=== PATIENT | female | born 1950 | race Caucasian/White ===

== ENCOUNTER 2017-03-28 22:51 | Emergency (ER) | payer MEDICARE, MEDICAID ==
[2017-03-29 00:21] LABS: Troponin I Less than 0.010 ng/mL (< 0.028)
== END 2017-03-29 03:15 | disposition home or self-care (01) ==
LOC: ERS 22:51
DX: F41.9 Anxiety disorder, unspecified (principal); T42.6X5A Adverse effect of other antiepileptic and sedative-hypnotic drugs, initial encounter; E03.9 Hypothyroidism, unspecified; F31.9 Bipolar disorder, unspecified; B19.10 Unspecified viral hepatitis B without hepatic coma; F43.10 Post-traumatic stress disorder, unspecified; F17.210 Nicotine dependence, cigarettes, uncomplicated; Z79.899 Other long term (current) drug therapy
CPT/HCPCS: 36415; 80164; 93005; 94760; 96360

== ENCOUNTER 2020-04-12 20:37 | Inpatient (IN) | payer MEDICARE, MEDICAID ==
[2020-04-12] MEDS ORDERED: HYDROcodone/Acetaminophen 5/325 mg Tablet PO PRN (22:10)
[2020-04-12] MEDS ORDERED: Acetaminophen 650 MG Suppository PR PRN (22:10)
[2020-04-12] MEDS ORDERED: Ondansetron ODT 4 MG TAB PO PRN (22:10)
[2020-04-12] MEDS ORDERED: Ondansetron PF 4 MG/2 ML Vial IVP PRN (22:10)
--- NOTE | 2020-04-12 22:22 | PDOC.HHP ---
Hospitalist HPI - History of Present Illness hypoxia History of Present Illness: Case of an 69y/o female patient with a pmhx of hld, hypothyroidism, hep b abd chronic back pain who was transferred from the [facility] due to hypoxia secondary to COVID-19 pneumonia. apparently patient was recently diagnosed with covid 19 about a week ago and was found hypoactive and with a RA saturation of 87% having difficulty breathing for which she was brought to hospital for evaluation. there patient was also diagnose with rhabdomyolysis and elevated troponin for which she was transfered to this institution for further evaluation and management. patient is a poor historian, correction called for patients hxs Hospitalist ROS - Review of Systems All other systems reviewed; all pertinent +/- noted in HPI/Subj Hospitalist History - Past Surgical History Past Surgical History: reports: Cholecystectomy, Hysterectomy - Family History Family History: reports: no pertinent history - Social History Smoking Status: Current every day smoker Drugs: reports: cocaine, marijuana - Exam General Appearance: NAD, awake alert Eye: PERRL, anicteric sclera ENT: normocephalic atraumatic, no oropharyngeal lesions Neck: supple, symmetric, no JVD Heart: RRR, no murmur, no gallops Respiratory: CTAB, no wheezes, no rales Gastrointestinal: soft, non-tender, non-distended Extremities: no cyanosis, no clubbing, no edema Skin: normal turgor, no lesions, no rashes Neurological: cranial nerve grossly intact, normal sensation to touch, no weakness Musculoskeletal: normal tone, normal strength Psychiatric: normal affect, normal behavior, A&O x 3 Hospitalist H&P A/P - Problem (1) Pneumonia due to COVID-19 virus Code(s): U07.1 - COVID-19; J12.89 - OTHER VIRAL PNEUMONIA Status: Acute (2) Acute respiratory failure Code(s): J96.00 - ACUTE RESPIRATORY FAILURE, UNSP W HYPOXIA OR HYPERCAPNIA Status: Acute (3) UTI (urinary tract infection) Status: Acute (4) BK (acute kidney injury) Code(s): N17.9 - ACUTE KIDNEY FAILURE, UNSPECIFIED Status: Acute (5) Rhabdomyolysis Code(s): M62.82 - RHABDOMYOLYSIS Status: Acute (6) Elevated troponin Code(s): R77.8 - OTHER SPECIFIED ABNORMALITIES OF PLASMA PROTEINS Status: Acute - Plan Plan: 69y/o female with the stated pmhx who present with covid 19 pneumonia, resp failure bk and rhabdomyelisis covid 19 - recentely tested positive - cxr pneumonia on LLL - will start rocephin + azithromycin prophylactically - dexamethazone 6mg ivd - f/u inflammation markers - dvt prophylaxis - vit c vit d + zinc acute resp failure hypoxia - likely secondary to above - 02 supplementation wean as tolerated uti - u/a consistent with uti - f/u blood + urine cultures - on rocephin bk - elevated creatinine compared to previous exams - will start ivfs ns - f/u renal function and u/o rhabdomyelisis - cpk [id number] - ivfs - f/u cpk - monitor electrolites - f/u renal function elevated troponin - likely stemi typ2 deman ischemia in the setting of hypoxia renal failure and infection - will trend troponins
[2020-04-12 23:17] VITALS: BMI 30.6
[2020-04-12] MEDS: Sodium Chloride 0.9% 1,000 ML IV SCH (23:56)
[2020-04-13 02:11] LABS: Troponin I 0.027 ng/mL (< 0.028)
[2020-04-13 05:45] LABS: #Lymphocytes 0.9 thou/uL (1.20-3.40); #Monocytes 0.5 thou/uL (0.11-0.59); #Neutrophils 6.4 thou/uL (1.40-6.50); %Basophils 0.3 % (0.0-1.0); %Eosinophils 0.2 % (0.0-10.0); %Lymphocytes 11.3 % (21.0-51.0); %Monocytes 6.6 % (0.0-10.0); %Neutrophils 81.7 % (42.0-75.0); Hemoglobin 11.9 g/dL (12.0-16.0); Mean Corpuscular HGB CONC 33.1 g/dL (32.0-36.0); Mean Corpuscular Hemoglobin 34.2 pg (27.0-31.0); Mean Platelet Volume 7.2 fL (7.4-10.4); Platelet Count 162 thou/uL (130-400); RBC Distribution Width 12.2 % (11.5-14.5); Red Blood Cell (RBC) Count 3.47 mill/uL (4.20-5.40); White Blood Cell (WBC) Count 7.8 thou/uL (4.8-10.8)
[2020-04-13 06:08] LABS: ALT (SGPT) 48 U/L (8-55); AST (SGOT) 120 U/L (5-34); Albumin 2.5 g/dL (3.4-4.8); Alkaline Phosphatase 31 U/L (40-110); Anion Gap 14 mmol/L (10-20); BUN (Urea Nitrogen) 31 mg/dL (9.8-20.1); Bilirubin, Total 0.3 mg/dL (0.2-1.2); CK (CPK) 2535 U/L (29-168); Calc. Creatinine Clearance 74 mL/min (70-130); Calcium 7.4 mg/dL (7.8-10.44); Carbon Dioxide 20 mmol/L (23-31); Chloride 105 mmol/L (98-107); Globulin 3.2 g/dL (2.4-3.5); Glucose 92 mg/dL (80-115); Potassium 4.3 mmol/L (3.5-5.1); Protein, Total 5.7 g/dL (6.0-8.3); Sodium 135 mmol/L (136-145)
[2020-04-13 06:09] LABS: Troponin I 0.029 ng/mL (< 0.028)
[2020-04-13] MEDS: Ascorbic Acid 500 mg Chewable Tablet PO SCH (09:30)
[2020-04-13] MEDS: Enoxaparin Sodium 30 MG/0.3 ML SYRINGE SC SCH (09:30)
[2020-04-13] MEDS: Zinc Sulfate 220 MG CAP PO SCH (09:30)
[2020-04-13] MEDS: Cholecalciferol (Vitamin D3) 400 UNITS TAB PO SCH (09:30)
[2020-04-13] MEDS: Dexamethasone 6 MG in Sodium Chloride 0.9% 50 ML IVPB SCH (09:31)
[2020-04-13] MEDS: Sodium Chloride 0.9% 1,000 ML IV SCH ×3 (10:30→22:05)
[2020-04-13] MEDS ORDERED: Senokot S 8.6-50 MG TAB PO SCH (11:00)
[2020-04-13] MEDS: ALPRAZolam 1 MG TAB PO SCH ×2 (13:41→20:22)
[2020-04-13] MEDS ORDERED: REMDESIVIR (EUA) 200 MG in Sodium Chloride 0.9% 250 ML 210 ML IV SCH (17:00)
[2020-04-13] MEDS: Milk Of Magnesia 30 ML UDCUP PO PRN (17:17)
--- NOTE | 2020-04-13 17:37 | PDOC.HOSPP ---
- Subjective Encounter Date: 04/13/20 Encounter Time: 11:30 Subjective: Patient seen for follow-up regarding COVID-19 pneumonia. She denies chest pain. - Objective Vital Signs & Weight: Vital Signs (12 hours) Temp Pulse Resp BP Pulse Ox 04/13/20 13:00 97.4 F L 65 22 H 117/71 95 04/13/20 09:30 97.6 F 64 22 H 120/60 94 L 04/13/20 08:00 94 L Weight Weight 167 lb 8 oz I&O: 04/12/20 04/13/20 04/14/20 06:59 06:59 06:59 Intake Total 300 Output Total 450 Balance -150 Result Diagrams: 04/13/20 05:09 04/13/20 05:09 Additional Labs: I reviewed patient's labs and MAR EKG Reviewed by me: Yes (Normal sinus rhythm on telemetry) Hospitalist ROS - Review of Systems Respiratory: reports: cough, dry. denies: shortness of breath, hemoptysis, SOB with excertion, pleuritic pain, sputum, wheezing Cardiovascular: denies: chest pain, palpitations, orthopnea, paroxysmal noc. dyspnea, edema, light headedness - Medication Medications: Active Medications Generic Name Dose Route Start Last Admin Trade Name Freq PRN Reason Stop Dose Admin Alprazolam 1 mg 04/13/20 15:00 04/13/20 13:41 Alprazolam 1 Mg Tab PO 1 mg TID PALMA Administration Ascorbic Acid 1,000 mg 04/13/20 09:00 04/13/20 09:30 Ascorbic Acid 500 Mg Chewable Tablet PO 1,000 mg DAILY PALMA Administration Cholecalciferol 400 units 04/13/20 09:00 04/13/20 09:30 Cholecalciferol (Vitamin D3) 400 Units Tab PO 400 units DAILY PALMA Administration Enoxaparin Sodium 30 mg 04/13/20 09:00 04/13/20 09:30 Enoxaparin Sodium 30 Mg/0.3 Ml Syringe SC 30 mg 0900 PALMA Administration Sodium Chloride 1,000 mls @ 100 mls/hr 04/12/20 22:15 04/12/20 23:56 Normal Saline 0.9% IV 1,000 mls .Q10H PALMA Administration Dexamethasone 6 mg/ Sodium 51.5 mls @ 101.756 mls/hr 04/13/20 09:00 04/13/20 09:31 Chloride IVPB 51.5 mls DAILY PALMA Administration Remdesivir 200 mg/ Sodium 250 mls @ 250 mls/hr 04/13/20 17:00 04/13/20 17:17 Chloride IV 04/13/20 17:59 250 mls 1700 PALMA Administration Magnesium Hydroxide 30 ml 04/13/20 10:55 04/13/20 17:17 Milk Of Magnesia 30 Ml Udcup PO 30 ml DAILYPRN PRN Administration Constipation Zinc Sulfate 220 mg 04/13/20 09:00 04/13/20 09:30 Zinc Sulfate 220 Mg Cap PO 220 mg DAILY PALMA Administration - Exam General - other findings: Obese Eye: anicteric sclera ENT: no oropharyngeal lesions, moist mucosa Neck: supple Heart: RRR Respiratory: rales, rhonchi Gastrointestinal: soft, non-tender Skin: no rashes Psychiatric: normal affect, normal behavior Hosp A/P - Plan - Problem (1) Pneumonia due to COVID-19 virus Code(s): U07.1 - COVID-19; J12.89 - OTHER VIRAL PNEUMONIA Status: Acute (2) Acute hypoxic respiratory failure Status: Acute (3) UTI (urinary tract infection) Status: Ruled out (4) BK (acute kidney injury) Code(s): N17.9 - ACUTE KIDNEY FAILURE, UNSPECIFIED Status: Resolved (5) Rhabdomyolysis Code(s): M62.82 - RHABDOMYOLYSIS Status: Acute (6) Elevated troponin Code(s): R77.8 - OTHER SPECIFIED ABNORMALITIES OF PLASMA PROTEINS Status: Acute - Plan Continue dexamethasone, patient also being started on remdesivir. Continue ceftriaxone and azithromycin. Continue inflammatory markers tracking. Follow-up blood culture results. Patient denies any chest pain, elevated troponin IX likely secondary to demand ischemia. Continue IV fluids, recheck CK level.
[2020-04-13] MEDS: Atorvastatin Calcium 20 MG TAB PO SCH (20:22)
[2020-04-13] MEDS: Divalproex Sodium DR 500 MG TAB PO SCH (20:22)
[2020-04-13] MEDS: Senokot S 8.6-50 MG TAB PO SCH (20:22)
[2020-04-13] MEDS: Guaifenesin DM 100-10/5 ML UDCUP PO PRN (20:24)
[2020-04-14] MEDS: Acetaminophen 325 MG TAB PO PRN ×2 (00:06→10:47)
[2020-04-14] MEDS ORDERED: Albuterol Sulfate 2.5 mg/3 ml Neb NEB PRN (00:32)
[2020-04-14] MEDS: Albuterol 200 PUFF (6.7GM INHALER) INH PRN ×2 (01:09→13:00)
[2020-04-14] MEDS: Guaifenesin DM 100-10/5 ML UDCUP PO PRN (04:40)
[2020-04-14 05:48] LABS: ALT (SGPT) 57 U/L (8-55); AST (SGOT) 143 U/L (5-34); Alkaline Phosphatase 46 U/L (40-110); Bilirubin, Direct 0.2 mg/dL (0.1-0.3); Bilirubin, Total 0.5 mg/dL (0.2-1.2); Protein, Total 6.5 g/dL (6.0-8.3)
[2020-04-14] MEDS: Sodium Chloride 0.9% 1,000 ML IV SCH ×3 (06:05→16:26)
[2020-04-14] MEDS: Levothyroxine Sodium 75 MCG TAB PO SCH (06:05)
[2020-04-14 06:20] LABS: ALT (SGPT) 62 U/L (8-55); AST (SGOT) 149 U/L (5-34); Alkaline Phosphatase 40 U/L (40-110); Anion Gap 18 mmol/L (10-20); BUN (Urea Nitrogen) 25 mg/dL (9.8-20.1); Bilirubin, Total 0.5 mg/dL (0.2-1.2); CK (CPK) 2036 U/L (29-168); CRP (Inflammatory) 12.83 mg/dL (= or < 0.5); Calc. Creatinine Clearance 82 mL/min (70-130); Calcium 7.9 mg/dL (7.8-10.44); Carbon Dioxide 20 mmol/L (23-31); Chloride 103 mmol/L (98-107); Globulin 3.4 g/dL (2.4-3.5); Glucose 87 mg/dL (80-115); Protein, Total 6.4 g/dL (6.0-8.3); Sodium 136 mmol/L (136-145)
--- NOTE | 2020-04-14 07:45 | RAD ---
XR Chest 1 View Portable History: Tachypnea. Shortness of breath Comparison: Radiograph 2 days prior Findings: Perihilar and peripheral airspace opacities are similar. Small effusions. No pneumothorax. Cardiac silhouette and mediastinal contours are unchanged. No acute osseous abnormality. Impression: Similar examination of the chest with concern for multifocal pneumonia.
[2020-04-14] MEDS: Zinc Sulfate 220 MG CAP PO SCH (07:55)
[2020-04-14] MEDS: Fish Oil 1,000 MG CAP PO SCH (07:55)
[2020-04-14] MEDS: FLUoxetine HCl 20 MG CAP PO SCH (07:55)
[2020-04-14] MEDS: Aripiprazole 10 MG TAB PO SCH ×2 (07:55→07:56)
[2020-04-14] MEDS: Senokot S 8.6-50 MG TAB PO SCH (07:56)
[2020-04-14] MEDS: Cholecalciferol (Vitamin D3) 400 UNITS TAB PO SCH (07:56)
[2020-04-14] MEDS: Enoxaparin Sodium 30 MG/0.3 ML SYRINGE SC SCH (07:57)
[2020-04-14] MEDS: ALPRAZolam 1 MG TAB PO SCH ×2 (10:47→16:28)
[2020-04-14] MEDS: Dexamethasone 6 MG in Sodium Chloride 0.9% 50 ML IVPB SCH (10:50)
[2020-04-14] MEDS: Ascorbic Acid 500 mg Chewable Tablet PO SCH (10:50)
[2020-04-14 11:57] LABS: Hemoglobin 12.6 g/dL (12.0-16.0); Mean Corpuscular HGB CONC 33.7 g/dL (32.0-36.0); Mean Corpuscular Hemoglobin 34.7 pg (27.0-31.0); Mean Platelet Volume 6.7 fL (7.4-10.4); Platelet Count 185 thou/uL (130-400); RBC Distribution Width 12.2 % (11.5-14.5); Red Blood Cell (RBC) Count 3.64 mill/uL (4.20-5.40); White Blood Cell (WBC) Count 9.5 thou/uL (4.8-10.8)
[2020-04-14 12:13] LABS: Band 58 % (5-11); Lymphocytes 6 % (21-51); MDiff Complete? YES; Metamyelocyte 1 % (0-0); Monocytes 5 % (0-10); Myelocyte 1 % (0-0); Neutrophil 25 % (42-75); Platelet Morphology Comment Appears Adequate; Polychromasia SLIGHT = 2-3 cells (100X) (0-2/hpf); Reactive Lymphocytes 4 % (0-10); Reflex for Review?? YES; Vacuoles SLIGHT
[2020-04-14] MEDS: REMDESIVIR (EUA) 100 MG in Sodium Chloride 0.9% 250 ML 230 ML IV SCH (16:27)
--- NOTE | 2020-04-14 16:51 | PDOC.HOSPP ---
- Subjective Encounter Date: 04/14/20 Encounter Time: 09:00 Subjective: Patient seen for follow-up regarding COVID-19 pneumonia. She is now on high flow oxygen. - Objective Vital Signs & Weight: Vital Signs (12 hours) Temp Pulse Resp BP Pulse Ox 04/14/20 15:00 99.9 F H 04/14/20 12:24 102.3 F H 04/14/20 11:45 102.1 F H 84 36 H 125/60 98 04/14/20 10:47 100.9 F H 04/14/20 08:00 100.9 F H 83 26 H 143/74 H 95 04/14/20 05:04 95 Weight Weight 167 lb 8 oz I&O: 04/13/20 04/14/20 04/15/20 06:59 06:59 06:59 Intake Total 3293 200 Output Total 950 Balance 2343 200 Result Diagrams: 04/14/20 11:19 04/14/20 05:39 Additional Labs: Labs and MAR reviewed by me EKG Reviewed by me: Yes (Telemetry shows normal sinus rhythm) Hospitalist ROS - Review of Systems Respiratory: reports: cough, dry, SOB with excertion. denies: shortness of breath, hemoptysis, pleuritic pain, sputum, wheezing Cardiovascular: denies: chest pain, palpitations, orthopnea, paroxysmal noc. dyspnea, edema, light headedness - Medication Medications: Active Medications Generic Name Dose Route Start Last Admin Trade Name Freq PRN Reason Stop Dose Admin Acetaminophen 650 mg 04/12/20 22:10 04/14/20 10:47 Acetaminophen 325 Mg Tab PO 650 mg Q4H PRN Administration Headache/Fever/Mild Pain (1-3) Albuterol Sulfate 2 puff 04/14/20 00:36 04/14/20 01:09 Albuterol 200 Puff (6.7gm Inhaler) INH 2 puff [id number] PRN Administration Wheezing Alprazolam 1 mg 04/13/20 15:00 04/14/20 16:28 Alprazolam 1 Mg Tab PO Not Given TID PALMA Aripiprazole 10 mg 04/14/20 09:00 04/14/20 07:56 Aripiprazole 10 Mg Tab PO 10 mg DAILY PALMA Administration Ascorbic Acid 1,000 mg 04/13/20 09:00 04/14/20 10:50 Ascorbic Acid 500 Mg Chewable Tablet PO 1,000 mg DAILY PALMA Administration Atorvastatin Calcium 20 mg 04/13/20 21:00 04/13/20 20:22 Atorvastatin Calcium 20 Mg Tab PO 20 mg HS PALMA Administration Cholecalciferol 400 units 04/13/20 09:00 04/14/20 07:56 Cholecalciferol (Vitamin D3) 400 Units Tab PO 400 units DAILY PALMA Administration Divalproex Sodium 500 mg 04/13/20 21:00 04/13/20 20:[address] 500 Mg Tab PO 500 mg HS PALMA Administration Enoxaparin Sodium 30 mg 04/13/20 09:00 04/14/20 07:57 Enoxaparin Sodium 30 Mg/0.3 Ml Syringe SC 30 mg 0900 PALMA Administration Fish Oil 1,000 mg 04/14/20 09:00 04/14/20 07:55 Fish Oil 1,000 Mg Cap PO 1,000 mg DAILY PALMA Administration Fluoxetine HCl 60 mg 04/14/20 09:00 04/14/20 07:55 Fluoxetine Hcl 20 Mg Cap PO 60 mg DAILY PALMA Administration Guaifenesin/Dextromethorphan 15 ml 04/12/20 22:10 04/14/20 04:40 Guaifenesin Dm 100-10/5 Ml Udcup PO 15 ml Q4H PRN Administration Cough Sodium Chloride 1,000 mls @ 100 mls/hr 04/12/20 22:15 04/14/20 16:26 Normal Saline 0.9% IV 1,000 mls .Q10H PALMA Administration Dexamethasone 6 mg/ Sodium 51.5 mls @ 101.756 mls/hr 04/13/20 09:00 04/14/20 10:50 Chloride IVPB 51.5 mls DAILY PALMA Administration Remdesivir 100 mg/ Sodium 250 mls @ 250 mls/hr 04/14/20 17:00 04/14/20 16:27 Chloride IV 04/17/20 17:59 250 mls 1700 PALMA Administration Levothyroxine Sodium 75 mcg 04/14/20 06:00 04/14/20 06:05 Levothyroxine Sodium 75 Mcg Tab PO 75 mcg 0600 PALMA Administration Senna/Docusate Sodium 1 tab 04/13/20 21:00 04/14/20 07:56 Senokot S 8.6-50 Mg Tab PO 1 tab BID PALMA Administration Zinc Sulfate 220 mg 04/13/20 09:00 04/14/20 07:55 Zinc Sulfate 220 Mg Cap PO 220 mg DAILY PALMA Administration - Exam General - other findings: Obese Eye: anicteric sclera ENT: moist mucosa Neck: supple Heart: RRR Respiratory: rhonchi Gastrointestinal: soft Skin: no rashes Psychiatric: normal affect, normal behavior Hosp A/P - Plan 69-year-old lady, admitted on April 12, 2020 for Covid pneumonia. She is being treated with dexamethasone, remdesivir, vitamin C, vitamin D and zinc. She was transitioned to high flow oxygen from nasal cannula. - Problem (1) Pneumonia due to COVID-19 virus Code(s): U07.1 - COVID-19; J12.89 - OTHER VIRAL PNEUMONIA Status: Acute (2) Acute hypoxic respiratory failure Status: Acute (3) UTI (urinary tract infection) Status: Ruled out (4) BK (acute kidney injury) Code(s): N17.9 - ACUTE KIDNEY FAILURE, UNSPECIFIED Status: Resolved (5) Rhabdomyolysis Code(s): M62.82 - RHABDOMYOLYSIS Status: Acute (6) Elevated troponin Code(s): R77.8 - OTHER SPECIFIED ABNORMALITIES OF PLASMA PROTEINS Status: Acute - Plan Continue dexamethasone and remdesivir. Patient is on ceftriaxone and azithromycin. Continue inflammatory markers tracking. BK has resolved, rhabdomyolysis improving. Continue IV fluids.
[2020-04-14] MEDS: Nicotine 21 MG PATCH TD SCH (19:26)
[2020-04-14] MEDS: Atorvastatin Calcium 20 MG TAB PO SCH (19:39)
[2020-04-14] MEDS: Divalproex Sodium DR 500 MG TAB PO SCH (19:39)
[2020-04-15] MEDS: ALPRAZolam 1 MG TAB PO SCH ×4 (02:32→21:02)
[2020-04-15] MEDS: Senokot S 8.6-50 MG TAB PO SCH ×3 (02:33→21:02)
[2020-04-15] MEDS: Sodium Chloride 0.9% 1,000 ML IV SCH ×3 (05:01→21:04)
[2020-04-15] MEDS: Levothyroxine Sodium 75 MCG TAB PO SCH (05:01)
[2020-04-15 06:35] LABS: Hemoglobin 11.6 g/dL (12.0-16.0); Mean Corpuscular HGB CONC 32.2 g/dL (32.0-36.0); Mean Corpuscular Hemoglobin 33.1 pg (27.0-31.0); Platelet Count 199 thou/uL (130-400); RBC Distribution Width 12.4 % (11.5-14.5); White Blood Cell (WBC) Count 8.2 thou/uL (4.8-10.8)
[2020-04-15 06:48] LABS: ALT (SGPT) 40 U/L (8-55); ALT (SGPT) 42 U/L (8-55); AST (SGOT) 93 U/L (5-34); AST (SGOT) 98 U/L (5-34); Albumin 2.3 g/dL (3.4-4.8); Alkaline Phosphatase 37 U/L (40-110); Alkaline Phosphatase 39 U/L (40-110); Anion Gap 15 mmol/L (10-20); BUN (Urea Nitrogen) 19 mg/dL (9.8-20.1); Bilirubin, Direct 0.3 mg/dL (0.1-0.3); Bilirubin, Total 0.4 mg/dL (0.2-1.2); CK (CPK) 666 U/L (29-168); Calc. Creatinine Clearance 95 mL/min (70-130); Calcium 7.6 mg/dL (7.8-10.44); Carbon Dioxide 20 mmol/L (23-31); Chloride 104 mmol/L (98-107); Globulin 2.8 g/dL (2.4-3.5); Glucose 80 mg/dL (80-115); Potassium 3.7 mmol/L (3.5-5.1); Protein, Total 5.1 g/dL (6.0-8.3); Sodium 135 mmol/L (136-145)
[2020-04-15] MEDS: Ascorbic Acid 500 mg Chewable Tablet PO SCH (07:41)
[2020-04-15] MEDS: Albuterol 200 PUFF (6.7GM INHALER) INH PRN (07:41)
[2020-04-15] MEDS: Fish Oil 1,000 MG CAP PO SCH (07:42)
[2020-04-15] MEDS: Enoxaparin Sodium 30 MG/0.3 ML SYRINGE SC SCH (07:42)
[2020-04-15] MEDS: FLUoxetine HCl 20 MG CAP PO SCH (07:42)
[2020-04-15] MEDS: Cholecalciferol (Vitamin D3) 400 UNITS TAB PO SCH (07:42)
[2020-04-15 07:43] LABS: Band 27 % (5-11); Lymphocytes 11 % (21-51); MDiff Complete? YES; Metamyelocyte 3 % (0-0); Monocytes 11 % (0-10); Neutrophil 48 % (42-75); Nucleated RBC 2 % (0); Platelet Morphology Comment Appears Adequate; Polychromasia SLIGHT = 2-3 cells (100X) (0-2/hpf)
[2020-04-15] MEDS: Zinc Sulfate 220 MG CAP PO SCH (07:43)
[2020-04-15] MEDS: Aripiprazole 10 MG TAB PO SCH (07:43)
[2020-04-15] MEDS: Dexamethasone 6 MG in Sodium Chloride 0.9% 50 ML IVPB SCH (08:03)
[2020-04-15] MEDS: Guaifenesin DM 100-10/5 ML UDCUP PO PRN (11:30)
[2020-04-15] MEDS: Nicotine 21 MG PATCH TD SCH (15:55)
--- NOTE | 2020-04-15 16:36 | PDOC.HOSPP ---
- Subjective Encounter Date: 04/15/20 Encounter Time: 12:30 Subjective: Patient up in bed appears weak. - Objective Vital Signs & Weight: Vital Signs (12 hours) Temp Pulse Pulse Pulse Resp BP BP 04/15/20 16:00 98.8 F 66 20 04/15/20 11:45 68 100 109/62 132/96 H 04/15/20 11:40 99.5 F 67 20 04/15/20 07:45 99.1 F 68 20 04/15/20 05:32 BP Pulse Ox Pulse Ox Pulse Ox 04/15/20 16:00 106/56 L 98 04/15/20 11:45 97 90 L 04/15/20 11:40 112/63 04/15/20 07:45 123/65 98 04/15/20 05:32 96 Weight Weight 167 lb 8 oz I&O: 04/14/20 04/15/20 04/16/20 06:59 06:59 06:59 Intake Total 3293 300 150 Output Total 950 500 500 Balance 2343 -200 -350 Result Diagrams: 04/15/20 05:56 04/15/20 05:55 Hospitalist ROS - Review of Systems Respiratory: reports: shortness of breath Cardiovascular: denies: chest pain, palpitations, orthopnea, paroxysmal noc. d yspnea, edema, light headedness, other Gastrointestinal: denies: nausea, vomiting, abdominal pain, diarrhea, constipation, melena, hematochezia, other - Medication Medications: Active Medications Generic Name Dose Route Start Last Admin Trade Name Freq PRN Reason Stop Dose Admin Acetaminophen 650 mg 04/12/20 22:10 04/14/20 10:47 Acetaminophen 325 Mg Tab PO 650 mg Q4H PRN Administration Headache/Fever/Mild Pain (1-3) Albuterol Sulfate 2 puff 04/14/20 00:36 04/15/20 07:41 Albuterol 200 Puff (6.7gm Inhaler) INH 2 puff [id number] PRN Administration Wheezing Alprazolam 1 mg 04/13/20 15:00 04/15/20 15:54 Alprazolam 1 Mg Tab PO 1 mg TID PALMA Administration Aripiprazole 10 mg 04/14/20 09:00 04/15/20 07:43 Aripiprazole 10 Mg Tab PO 10 mg DAILY PALMA Administration Ascorbic Acid 1,000 mg 04/13/20 09:00 04/15/20 07:41 Ascorbic Acid 500 Mg Chewable Tablet PO 1,000 mg DAILY PALMA Administration Atorvastatin Calcium 20 mg 04/13/20 21:00 04/14/20 19:39 Atorvastatin Calcium 20 Mg Tab PO 20 mg HS PALMA Administration Cholecalciferol 400 units 04/13/20 09:00 04/15/20 07:42 Cholecalciferol (Vitamin D3) 400 Units Tab PO 400 units DAILY PALMA Administration Divalproex Sodium 500 mg 04/13/20 21:00 04/14/20 19:[address] 500 Mg Tab PO 500 mg HS PALMA Administration Enoxaparin Sodium 30 mg 04/13/20 09:00 04/15/20 07:42 Enoxaparin Sodium 30 Mg/0.3 Ml Syringe SC 30 mg 0900 PALMA Administration Fish Oil 1,000 mg 04/14/20 09:00 04/15/20 07:42 Fish Oil 1,000 Mg Cap PO 1,000 mg DAILY PALMA Administration Fluoxetine HCl 60 mg 04/14/20 09:00 04/15/20 07:42 Fluoxetine Hcl 20 Mg Cap PO 60 mg DAILY PALMA Administration Guaifenesin/Dextromethorphan 15 ml 04/12/20 22:10 04/15/20 11:30 Guaifenesin Dm 100-10/5 Ml Udcup PO 15 ml Q4H PRN Administration Cough Sodium Chloride 1,000 mls @ 100 mls/hr 04/12/20 22:15 04/15/20 11:25 Normal Saline 0.9% IV 1,000 mls .Q10H PALMA Administration Dexamethasone 6 mg/ Sodium 51.5 mls @ 101.756 mls/hr 04/13/20 09:00 04/15/20 08:03 Chloride IVPB 51.5 mls DAILY PALMA Administration Remdesivir 100 mg/ Sodium 250 mls @ 250 mls/hr 04/14/20 17:00 04/14/20 16:27 Chloride IV 04/17/20 17:59 250 mls 1700 PALMA Administration Levothyroxine Sodium 75 mcg 04/14/20 06:00 04/15/20 05:01 Levothyroxine Sodium 75 Mcg Tab PO 75 mcg 0600 PALMA Administration Nicotine 21 mg 04/14/20 17:00 04/15/20 15:55 Nicotine 21 Mg Patch TD 21 mg Q24HR PALMA Administration Senna/Docusate Sodium 1 tab 04/13/20 21:00 04/15/20 07:43 Senokot S 8.6-50 Mg Tab PO 1 tab BID PALMA Administration Zinc Sulfate 220 mg 04/13/20 09:00 04/15/20 07:43 Zinc Sulfate 220 Mg Cap PO 220 mg DAILY PALMA Administration - Exam Heart: negative: RRR, no murmur, no gallops, no rubs, normal peripheral pulses, irregular, diminshed peripheral pulses, murmur present, II/IV, III/IV Respiratory: negative: CTAB, no wheezes, no rales, no ronchi, normal chest expansion, no tachypnea, normal percussion, rales, rhonchi, tachypneic, wheezes Gastrointestinal: negative: soft, non-tender, non-distended, normal bowel sounds, no palpable masses, no hepatomegaly, no splenomegaly, no bruit, no guarding, no rigidity, tender to palpation, distended, diminished bowl sounds, voluntary guarding Extremities: 1+ LE edema Hosp A/P - Plan 69-year-old lady, admitted on April 12, 2020 for Covid pneumonia. She is being treated with dexamethasone, remdesivir, vitamin C, vitamin D and zinc. She was transitioned to high flow oxygen from nasal cannula. - Problem (1) Pneumonia due to COVID-19 virus Code(s): U07.1 - COVID-19; J12.89 - OTHER VIRAL PNEUMONIA Status: Acute (2) Acute hypoxic respiratory failure Status: Acute (3) UTI (urinary tract infection) Status: Ruled out (4) BK (acute kidney injury) Code(s): N17.9 - ACUTE KIDNEY FAILURE, UNSPECIFIED Status: Resolved (5) Rhabdomyolysis Code(s): M62.82 - RHABDOMYOLYSIS Status: Acute (6) Elevated troponin Code(s): R77.8 - OTHER SPECIFIED ABNORMALITIES OF PLASMA PROTEINS Status: Acute - Plan Continue dexamethasone and remdesivir. Patient is on ceftriaxone and azithromycin. Continue inflammatory markers tracking. BK has resolved, rhabdomyolysis improving. Continue IV fluids. 04/15 we will continue dexamethasone and remdesivir. We will check CRP in the morning. We will get physical therapy to evaluate patient
[2020-04-15] MEDS: REMDESIVIR (EUA) 100 MG in Sodium Chloride 0.9% 250 ML 230 ML IV SCH (17:20)
[2020-04-15] MEDS: Divalproex Sodium DR 500 MG TAB PO SCH (21:02)
[2020-04-15] MEDS: Atorvastatin Calcium 20 MG TAB PO SCH (21:02)
[2020-04-16] MEDS: Levothyroxine Sodium 75 MCG TAB PO SCH (04:52)
[2020-04-16] MEDS: Sodium Chloride 0.9% 1,000 ML IV SCH (04:53)
[2020-04-16 05:23] LABS: ALT (SGPT) 34 U/L (8-55); AST (SGOT) 70 U/L (5-34); Albumin 2.1 g/dL (3.4-4.8); Alkaline Phosphatase 36 U/L (40-110); Bilirubin, Direct 0.2 mg/dL (0.1-0.3); Bilirubin, Total 0.3 mg/dL (0.2-1.2); Protein, Total 4.8 g/dL (6.0-8.3)
[2020-04-16 05:26] LABS: ALT (SGPT) 35 U/L (8-55); AST (SGOT) 72 U/L (5-34); Albumin 2.1 g/dL (3.4-4.8); Alkaline Phosphatase 35 U/L (40-110); Anion Gap 12 mmol/L (10-20); BUN (Urea Nitrogen) 18 mg/dL (9.8-20.1); Bilirubin, Total 0.3 mg/dL (0.2-1.2); CK (CPK) 332 U/L (29-168); CRP (Inflammatory) 8.82 mg/dL (= or < 0.5); Calc. Creatinine Clearance 92 mL/min (70-130); Calcium 7.6 mg/dL (7.8-10.44); Carbon Dioxide 21 mmol/L (23-31); Chloride 107 mmol/L (98-107); Globulin 2.6 g/dL (2.4-3.5); Glucose 100 mg/dL (80-115); Potassium 3.9 mmol/L (3.5-5.1); Protein, Total 4.7 g/dL (6.0-8.3); Sodium 136 mmol/L (136-145)
[2020-04-16 05:36] LABS: Band 14 % (5-11); Hemoglobin 11.3 g/dL (12.0-16.0); Hypochromia SLIGHT = 6-15 cells (100X) (0-5/hpf); Lymphocytes 18 % (21-51); MDiff Complete? YES; Macrocytosis SLIGHT = 6-15 cells (100X) (0-5/hpf); Mean Corpuscular HGB CONC 33.3 g/dL (32.0-36.0); Monocytes 13 % (0-10); Neutrophil 55 % (42-75); Platelet Count 212 thou/uL (130-400); Platelet Morphology Comment Appears Adequate; RBC Distribution Width 12.2 % (11.5-14.5); Red Blood Cell (RBC) Count 3.23 mill/uL (4.20-5.40); White Blood Cell (WBC) Count 8.4 thou/uL (4.8-10.8)
[2020-04-16] MEDS: Enoxaparin Sodium 30 MG/0.3 ML SYRINGE SC SCH (07:44)
[2020-04-16] MEDS: Ascorbic Acid 500 mg Chewable Tablet PO SCH (07:44)
[2020-04-16] MEDS: Cholecalciferol (Vitamin D3) 400 UNITS TAB PO SCH (07:44)
[2020-04-16] MEDS: Dexamethasone 6 MG in Sodium Chloride 0.9% 50 ML IVPB SCH (07:44)
[2020-04-16] MEDS: Senokot S 8.6-50 MG TAB PO SCH ×2 (07:45→20:44)
[2020-04-16] MEDS: Fish Oil 1,000 MG CAP PO SCH (07:45)
[2020-04-16] MEDS: FLUoxetine HCl 20 MG CAP PO SCH (07:45)
[2020-04-16] MEDS: Zinc Sulfate 220 MG CAP PO SCH (07:45)
[2020-04-16] MEDS: Aripiprazole 10 MG TAB PO SCH (07:46)
[2020-04-16] MEDS: ALPRAZolam 1 MG TAB PO SCH ×3 (11:29→20:45)
--- NOTE | 2020-04-16 16:39 | PDOC.HOSPP ---
- Subjective Encounter Date: 04/16/20 Encounter Time: 09:00 Subjective: Patient seen for follow-up for COVID-19 pneumonia. She continues to be on high flow oxygen. Reports cough. - Objective Vital Signs & Weight: Vital Signs (12 hours) Temp Pulse Resp BP Pulse Ox 04/16/20 11:44 98.4 F 62 20 113/66 99 04/16/20 08:20 20 98 04/16/20 08:00 100 04/16/20 07:45 98.1 F 56 L 20 119/62 100 04/16/20 04:53 98.4 F 59 L 19 110/57 L 100 Weight Weight 167 lb 8 oz I&O: 04/15/20 04/16/20 04/17/20 06:59 06:59 06:59 Intake Total 300 150 450 Output Total 500 500 875 Balance -200 -350 -425 Result Diagrams: 04/16/20 04:52 04/16/20 04:52 Additional Labs: Labs and MAR reviewed by mn Hospitalist ROS - Review of Systems Respiratory: reports: cough, SOB with excertion. denies: dry, shortness of breath, hemoptysis, pleuritic pain, sputum, wheezing Genitourinary: denies: dysuria, frequency, incontinence, hematuria, retention - Medication Medications: Active Medications Generic Name Dose Route Start Last Admin Trade Name Freq PRN Reason Stop Dose Admin Acetaminophen 650 mg 04/12/20 22:10 04/14/20 10:47 Acetaminophen 325 Mg Tab PO 650 mg Q4H PRN Administration Headache/Fever/Mild Pain (1-3) Albuterol Sulfate 2 puff 04/14/20 00:36 04/15/20 07:41 Albuterol 200 Puff (6.7gm Inhaler) INH 2 puff [id number] PRN Administration Wheezing Alprazolam 1 mg 04/13/20 15:00 04/16/20 11:29 Alprazolam 1 Mg Tab PO 1 mg TID PALMA Administration Aripiprazole 10 mg 04/14/20 09:00 04/16/20 07:46 Aripiprazole 10 Mg Tab PO 10 mg DAILY PALMA Administration Ascorbic Acid 1,000 mg 04/13/20 09:00 04/16/20 07:44 Ascorbic Acid 500 Mg Chewable Tablet PO 1,000 mg DAILY PALMA Administration Atorvastatin Calcium 20 mg 04/13/20 21:00 04/15/20 21:02 Atorvastatin Calcium 20 Mg Tab PO 20 mg HS PALMA Administration Cholecalciferol 400 units 04/13/20 09:00 04/16/20 07:44 Cholecalciferol (Vitamin D3) 400 Units Tab PO 400 units DAILY PALMA Administration Divalproex Sodium 500 mg 04/13/20 21:00 04/15/20 21:[address] 500 Mg Tab PO 500 mg HS PALMA Administration Enoxaparin Sodium 30 mg 04/13/20 09:00 04/16/20 07:44 Enoxaparin Sodium 30 Mg/0.3 Ml Syringe SC 30 mg 0900 PALMA Administration Fish Oil 1,000 mg 04/14/20 09:00 04/16/20 07:45 Fish Oil 1,000 Mg Cap PO 1,000 mg DAILY PALMA Administration Fluoxetine HCl 60 mg 04/14/20 09:00 04/16/20 07:45 Fluoxetine Hcl 20 Mg Cap PO 60 mg DAILY PALMA Administration Guaifenesin/Dextromethorphan 15 ml 04/12/20 22:10 04/15/20 11:30 Guaifenesin Dm 100-10/5 Ml Udcup PO 15 ml Q4H PRN Administration Cough Sodium Chloride 1,000 mls @ 100 mls/hr 04/12/20 22:15 04/16/20 04:53 Normal Saline 0.9% IV 1,000 mls .Q10H PALMA Administration Dexamethasone 6 mg/ Sodium 51.5 mls @ 101.756 mls/hr 04/13/20 09:00 04/16/20 07:44 Chloride IVPB 51.5 mls DAILY PALMA Administration Remdesivir 100 mg/ Sodium 250 mls @ 250 mls/hr 04/14/20 17:00 04/15/20 17:20 Chloride IV 04/17/20 17:59 250 mls 1700 PALMA Administration Levothyroxine Sodium 75 mcg 04/14/20 06:00 04/16/20 04:52 Levothyroxine Sodium 75 Mcg Tab PO 75 mcg 0600 PALMA Administration Nicotine 21 mg 04/14/20 17:00 04/15/20 15:55 Nicotine 21 Mg Patch TD 21 mg Q24HR PALMA Administration Senna/Docusate Sodium 1 tab 04/13/20 21:00 04/16/20 07:45 Senokot S 8.6-50 Mg Tab PO 1 tab BID PALMA Administration Zinc Sulfate 220 mg 04/13/20 09:00 04/16/20 07:45 Zinc Sulfate 220 Mg Cap PO 220 mg DAILY PALMA Administration - Exam General - other findings: Obese ENT: moist mucosa Neck: supple Heart: RRR Respiratory: rhonchi Gastrointestinal: soft, non-tender Skin: no rashes Psychiatric: normal affect, normal behavior Hosp A/P - Plan 69-year-old lady, admitted on April 12, 2020 for Covid pneumonia. She is being treated with dexamethasone, remdesivir, vitamin C, vitamin D and zinc. She was transitioned to high flow oxygen from nasal cannula. - Problem (1) Pneumonia due to COVID-19 virus Code(s): U07.1 - COVID-19; J12.89 - OTHER VIRAL PNEUMONIA Status: Acute (2) Acute hypoxic respiratory failure Status: Acute (3) UTI (urinary tract infection) Status: Ruled out (4) BK (acute kidney injury) Code(s): N17.9 - ACUTE KIDNEY FAILURE, UNSPECIFIED Status: Resolved (5) Rhabdomyolysis Code(s): M62.82 - RHABDOMYOLYSIS Status: Acute (6) Elevated troponin Code(s): R77.8 - OTHER SPECIFIED ABNORMALITIES OF PLASMA PROTEINS Status: Acute - Plan Continue dexamethasone and remdesivir. Last dose of remdesivir is due tomorrow April 17, 2020. Continue ceftriaxone and azithromycin. Trend inflammatory markers. Rhabdomyolysis resolving. Discontinue IV fluids.
[2020-04-16] MEDS: Nicotine 21 MG PATCH TD SCH (18:54)
[2020-04-16] MEDS: Guaifenesin DM 100-10/5 ML UDCUP PO PRN (18:54)
[2020-04-16] MEDS: REMDESIVIR (EUA) 100 MG in Sodium Chloride 0.9% 250 ML 230 ML IV SCH (18:55)
[2020-04-16] MEDS: Divalproex Sodium DR 500 MG TAB PO SCH (20:45)
[2020-04-16] MEDS: Atorvastatin Calcium 20 MG TAB PO SCH (20:45)
[2020-04-16] MEDS: Loratadine 10 MG TAB PO SCH (20:45)
[2020-04-17] MEDS: Guaifenesin DM 100-10/5 ML UDCUP PO PRN ×2 (04:45→11:17)
[2020-04-17] MEDS: Milk Of Magnesia 30 ML UDCUP PO PRN (04:45)
[2020-04-17] MEDS: Levothyroxine Sodium 75 MCG TAB PO SCH (05:06)
[2020-04-17] MEDS: Dexamethasone 6 MG in Sodium Chloride 0.9% 50 ML IVPB SCH (11:18)
[2020-04-17] MEDS: Enoxaparin Sodium 30 MG/0.3 ML SYRINGE SC SCH (11:19)
[2020-04-17] MEDS: Cholecalciferol (Vitamin D3) 400 UNITS TAB PO SCH (11:19)
[2020-04-17] MEDS: Ascorbic Acid 500 mg Chewable Tablet PO SCH (11:19)
[2020-04-17] MEDS: ALPRAZolam 1 MG TAB PO SCH ×3 (11:19→20:52)
[2020-04-17] MEDS: Senokot S 8.6-50 MG TAB PO SCH ×2 (11:20→20:53)
[2020-04-17] MEDS: FLUoxetine HCl 20 MG CAP PO SCH (11:20)
[2020-04-17] MEDS: Fish Oil 1,000 MG CAP PO SCH (11:20)
[2020-04-17] MEDS: Zinc Sulfate 220 MG CAP PO SCH (11:20)
[2020-04-17] MEDS: Aripiprazole 10 MG TAB PO SCH (11:22)
--- NOTE | 2020-04-17 15:28 | PDOC.HOSPP ---
- Subjective Encounter Date: 04/17/20 Encounter Time: 12:00 Subjective: Patient seen for follow-up of COVID-19 pneumonia. Still on high flow oxygen. Denies chest pain. - Objective Vital Signs & Weight: Vital Signs (12 hours) Temp Pulse Resp Pulse Ox 04/17/20 04:48 98.6 F 60 16 96 04/17/20 04:22 95 Weight Weight 167 lb 8 oz I&O: 04/16/20 04/17/20 04/18/20 06:59 06:59 06:59 Intake Total 150 750 Output Total 500 4165 Balance -350 -8701 Result Diagrams: 04/16/20 04:52 04/16/20 04:52 Additional Labs: I reviewed patient's labs and MAR EKG Reviewed by me: Yes (Normal sinus rhythm on telemetry) Hospitalist ROS - Review of Systems Respiratory: reports: cough, dry, SOB with excertion Gastrointestinal: denies: nausea, vomiting, abdominal pain, diarrhea, constipation, melena - Medication Medications: Active Medications Generic Name Dose Route Start Last Admin Trade Name Freq PRN Reason Stop Dose Admin Acetaminophen 650 mg 04/12/20 22:10 04/14/20 10:47 Acetaminophen 325 Mg Tab PO 650 mg Q4H PRN Administration Headache/Fever/Mild Pain (1-3) Albuterol Sulfate 2 puff 04/14/20 00:36 04/15/20 07:41 Albuterol 200 Puff (6.7gm Inhaler) INH 2 puff [id number] PRN Administration Wheezing Alprazolam 1 mg 04/13/20 15:00 04/17/20 11:19 Alprazolam 1 Mg Tab PO 1 mg TID PALMA Administration Aripiprazole 10 mg 04/14/20 09:00 04/17/20 11:22 Aripiprazole 10 Mg Tab PO 10 mg DAILY PALMA Administration Ascorbic Acid 1,000 mg 04/13/20 09:00 04/17/20 11:19 Ascorbic Acid 500 Mg Chewable Tablet PO 1,000 mg DAILY PALMA Administration Atorvastatin Calcium 20 mg 04/13/20 21:00 04/16/20 20:45 Atorvastatin Calcium 20 Mg Tab PO 20 mg HS PALMA Administration Cholecalciferol 400 units 04/13/20 09:00 04/17/20 11:19 Cholecalciferol (Vitamin D3) 400 Units Tab PO 400 units DAILY PALMA Administration Divalproex Sodium 500 mg 04/13/20 21:00 04/16/20 20:[address] 500 Mg Tab PO 500 mg HS PALMA Administration Enoxaparin Sodium 30 mg 04/13/20 09:00 04/17/20 11:19 Enoxaparin Sodium 30 Mg/0.3 Ml Syringe SC 30 mg 0900 PALMA Administration Fish Oil 1,000 mg 04/14/20 09:00 04/17/20 11:20 Fish Oil 1,000 Mg Cap PO 1,000 mg DAILY PALMA Administration Fluoxetine HCl 60 mg 04/14/20 09:00 04/17/20 11:20 Fluoxetine Hcl 20 Mg Cap PO 60 mg DAILY PALMA Administration Guaifenesin/Dextromethorphan 15 ml 04/12/20 22:10 04/17/20 11:17 Guaifenesin Dm 100-10/5 Ml Udcup PO 15 ml Q4H PRN Administration Cough Dexamethasone 6 mg/ Sodium 51.5 mls @ 101.756 mls/hr 04/13/20 09:00 04/17/20 11:18 Chloride IVPB 51.5 mls DAILY PALMA Administration Remdesivir 100 mg/ Sodium 250 mls @ 250 mls/hr 04/14/20 17:00 04/16/20 18:55 Chloride IV 04/17/20 17:59 250 mls 1700 PALMA Administration Levothyroxine Sodium 75 mcg 04/14/20 06:00 04/17/20 05:06 Levothyroxine Sodium 75 Mcg Tab PO 75 mcg 0600 PALMA Administration Loratadine 10 mg 04/16/20 21:00 04/16/20 20:45 Loratadine 10 Mg Tab PO 10 mg HS PALMA Administration Nicotine 21 mg 04/14/20 17:00 04/16/20 18:54 Nicotine 21 Mg Patch TD 21 mg Q24HR PALMA Administration Senna/Docusate Sodium 1 tab 04/13/20 21:00 04/17/20 11:20 Senokot S 8.6-50 Mg Tab PO 1 tab BID PALMA Administration Zinc Sulfate 220 mg 04/13/20 09:00 04/17/20 11:20 Zinc Sulfate 220 Mg Cap PO 220 mg DAILY PALMA Administration - Exam General - other findings: Obese ENT: normocephalic atraumatic Heart: RRR Respiratory: no wheezes, rhonchi Gastrointestinal: soft Skin: no rashes Psychiatric: normal affect, normal behavior Hosp A/P - Plan 69-year-old lady, admitted on April 12, 2020 for Covid pneumonia. She is being treated with dexamethasone, remdesivir, vitamin C, vitamin D and zinc. She was transitioned to high flow oxygen from nasal cannula. - Problem (1) Pneumonia due to COVID-19 virus Code(s): U07.1 - COVID-19; J12.89 - OTHER VIRAL PNEUMONIA Status: Acute (2) Acute hypoxic respiratory failure Status: Acute (3) Rhabdomyolysis Code(s): M62.82 - RHABDOMYOLYSIS Status: Acute (4) Elevated troponin Code(s): R77.8 - OTHER SPECIFIED ABNORMALITIES OF PLASMA PROTEINS Status: Acute (5) UTI (urinary tract infection) Status: Ruled out (6) BK (acute kidney injury) Code(s): N17.9 - ACUTE KIDNEY FAILURE, UNSPECIFIED Status: Resolved - Plan Patient received last dose of remdesivir today. Continue dexamethasone. Patient is also on ceftriaxone and azithromycin. Trend inflammatory markers. Rhabdomyolysis resolving.
[2020-04-17] MEDS: REMDESIVIR (EUA) 100 MG in Sodium Chloride 0.9% 250 ML 230 ML IV SCH (16:38)
[2020-04-17] MEDS: Nicotine 21 MG PATCH TD SCH (16:39)
[2020-04-17] MEDS: Atorvastatin Calcium 20 MG TAB PO SCH (20:53)
[2020-04-17] MEDS: Loratadine 10 MG TAB PO SCH (20:53)
[2020-04-17] MEDS: Divalproex Sodium DR 500 MG TAB PO SCH (20:53)
[2020-04-18] MEDS: Levothyroxine Sodium 75 MCG TAB PO SCH (05:35)
[2020-04-18 06:03] LABS: ALT (SGPT) 39 U/L (8-55); AST (SGOT) 57 U/L (5-34); Albumin 2.1 g/dL (3.4-4.8); Alkaline Phosphatase 44 U/L (40-110); Bilirubin, Direct 0.2 mg/dL (0.1-0.3); Bilirubin, Total 0.4 mg/dL (0.2-1.2)
[2020-04-18] MEDS: Dexamethasone 6 MG in Sodium Chloride 0.9% 50 ML IVPB SCH (09:59)
[2020-04-18] MEDS: FLUoxetine HCl 20 MG CAP PO SCH (10:00)
[2020-04-18] MEDS: Enoxaparin Sodium 30 MG/0.3 ML SYRINGE SC SCH (10:00)
[2020-04-18] MEDS: Ascorbic Acid 500 mg Chewable Tablet PO SCH (10:00)
[2020-04-18] MEDS: Guaifenesin DM 100-10/5 ML UDCUP PO PRN (10:00)
[2020-04-18] MEDS: Senokot S 8.6-50 MG TAB PO SCH ×2 (10:01→21:56)
[2020-04-18] MEDS: ALPRAZolam 1 MG TAB PO SCH ×3 (10:01→21:56)
[2020-04-18] MEDS: Fish Oil 1,000 MG CAP PO SCH (10:01)
[2020-04-18] MEDS: Cholecalciferol (Vitamin D3) 400 UNITS TAB PO SCH (10:01)
[2020-04-18] MEDS: Zinc Sulfate 220 MG CAP PO SCH (10:02)
[2020-04-18] MEDS: Aripiprazole 10 MG TAB PO SCH (10:02)
[2020-04-18] MEDS: Nicotine 21 MG PATCH TD SCH (15:43)
--- NOTE | 2020-04-18 17:17 | PDOC.HOSPP ---
- Subjective Encounter Date: 04/18/20 Encounter Time: 11:30 Subjective: Patient seen for follow-up for pneumonia secondary to COVID-19 infection. She is still on high flow oxygen. - Objective Vital Signs & Weight: Vital Signs (12 hours) Temp Pulse Resp BP Pulse Ox 04/18/20 15:53 97.9 F 66 20 113/59 L 97 04/18/20 12:00 97.2 F L 63 20 121/64 96 04/18/20 09:59 96 04/18/20 08:00 97.8 F 63 15 169/84 H Weight Weight 167 lb 8 oz I&O: 04/17/20 04/18/20 04/19/20 06:59 06:59 06:59 Intake Total 750 800 Output Total 252 900 Balance -1775 -100 Result Diagrams: 04/16/20 04:52 04/16/20 04:52 Additional Labs: Labs and MAR reviewed by la Hospitalist ROS - Review of Systems Constitutional: denies: fever, chills, sweats, weakness, malaise Respiratory: reports: cough, dry, SOB with excertion - Medication Medications: Active Medications Generic Name Dose Route Start Last Admin Trade Name Freq PRN Reason Stop Dose Admin Acetaminophen 650 mg 04/12/20 22:10 04/14/20 10:47 Acetaminophen 325 Mg Tab PO 650 mg Q4H PRN Administration Headache/Fever/Mild Pain (1-3) Albuterol Sulfate 2 puff 04/14/20 00:36 04/15/20 07:41 Albuterol 200 Puff (6.7gm Inhaler) INH 2 puff [id number] PRN Administration Wheezing Alprazolam 1 mg 04/13/20 15:00 04/18/20 15:43 Alprazolam 1 Mg Tab PO 1 mg TID PALMA Administration Aripiprazole 10 mg 04/14/20 09:00 04/18/20 10:02 Aripiprazole 10 Mg Tab PO 10 mg DAILY PALMA Administration Ascorbic Acid 1,000 mg 04/13/20 09:00 04/18/20 10:00 Ascorbic Acid 500 Mg Chewable Tablet PO 1,000 mg DAILY PALMA Administration Atorvastatin Calcium 20 mg 04/13/20 21:00 04/17/20 20:53 Atorvastatin Calcium 20 Mg Tab PO 20 mg HS PALMA Administration Cholecalciferol 400 units 04/13/20 09:00 04/18/20 10:01 Cholecalciferol (Vitamin D3) 400 Units Tab PO 400 units DAILY PALMA Administration Divalproex Sodium 500 mg 04/13/20 21:00 04/17/20 20:[address] 500 Mg Tab PO 500 mg HS PALMA Administration Enoxaparin Sodium 30 mg 04/13/20 09:00 04/18/20 10:00 Enoxaparin Sodium 30 Mg/0.3 Ml Syringe SC 30 mg 0900 PALMA Administration Fish Oil 1,000 mg 04/14/20 09:00 04/18/20 10:01 Fish Oil 1,000 Mg Cap PO 1,000 mg DAILY PALMA Administration Fluoxetine HCl 60 mg 04/14/20 09:00 04/18/20 10:00 Fluoxetine Hcl 20 Mg Cap PO 60 mg DAILY PALMA Administration Guaifenesin/Dextromethorphan 15 ml 04/12/20 22:10 04/18/20 10:00 Guaifenesin Dm 100-10/5 Ml Udcup PO 15 ml Q4H PRN Administration Cough Dexamethasone 6 mg/ Sodium 51.5 mls @ 101.756 mls/hr 04/13/20 09:00 04/18/20 09:59 Chloride IVPB 51.5 mls DAILY PALMA Administration Levothyroxine Sodium 75 mcg 04/14/20 06:00 04/18/20 05:35 Levothyroxine Sodium 75 Mcg Tab PO 75 mcg 0600 PALMA Administration Loratadine 10 mg 04/16/20 21:00 04/17/20 20:53 Loratadine 10 Mg Tab PO 10 mg HS PALMA Administration Nicotine 21 mg 04/14/20 17:00 04/18/20 15:43 Nicotine 21 Mg Patch TD 21 mg Q24HR PALMA Administration Senna/Docusate Sodium 1 tab 04/13/20 21:00 04/18/20 10:01 Senokot S 8.6-50 Mg Tab PO 1 tab BID PALMA Administration Zinc Sulfate 220 mg 04/13/20 09:00 04/18/20 10:02 Zinc Sulfate 220 Mg Cap PO 220 mg DAILY PALMA Administration - Exam General Appearance: awake alert Eye: PERRL ENT: normocephalic atraumatic Neck: supple Heart: RRR Respiratory: rales, rhonchi Gastrointestinal: non-tender Skin: no rashes Psychiatric: normal affect Hosp A/P - Plan 69-year-old lady, admitted on April 12, 2020 for Covid pneumonia. She is being treated with dexamethasone, remdesivir, vitamin C, vitamin D and zinc. She was transitioned to high flow oxygen from nasal cannula. - Problem (1) Pneumonia due to COVID-19 virus Code(s): U07.1 - COVID-19; J12.89 - OTHER VIRAL PNEUMONIA Status: Acute (2) Acute hypoxic respiratory failure Status: Acute (3) Rhabdomyolysis Code(s): M62.82 - RHABDOMYOLYSIS Status: Acute (4) Elevated troponin Code(s): R77.8 - OTHER SPECIFIED ABNORMALITIES OF PLASMA PROTEINS Status: Acute (5) UTI (urinary tract infection) Status: Ruled out (6) BK (acute kidney injury) Code(s): N17.9 - ACUTE KIDNEY FAILURE, UNSPECIFIED Status: Resolved - Plan Patient completed course of remdesivir. Continue dexamethasone. Continue ceftriaxone and azithromycin. Trend inflammatory markers. Patient continues to be on high flow oxygen. Supportive therapy. DVT prophylaxis with Lovenox.
[2020-04-18] MEDS: Atorvastatin Calcium 20 MG TAB PO SCH (21:56)
[2020-04-18] MEDS: Divalproex Sodium DR 500 MG TAB PO SCH (21:56)
[2020-04-18] MEDS: Loratadine 10 MG TAB PO SCH (21:56)
[2020-04-19] MEDS: Guaifenesin DM 100-10/5 ML UDCUP PO PRN (03:42)
[2020-04-19] MEDS: Levothyroxine Sodium 75 MCG TAB PO SCH (05:32)
[2020-04-19] MEDS: Dexamethasone 6 MG in Sodium Chloride 0.9% 50 ML IVPB SCH (09:36)
[2020-04-19] MEDS: Enoxaparin Sodium 30 MG/0.3 ML SYRINGE SC SCH (09:37)
[2020-04-19] MEDS: Aripiprazole 10 MG TAB PO SCH (09:37)
[2020-04-19] MEDS: Ascorbic Acid 500 mg Chewable Tablet PO SCH (09:37)
[2020-04-19] MEDS: Cholecalciferol (Vitamin D3) 400 UNITS TAB PO SCH (09:37)
[2020-04-19] MEDS: Zinc Sulfate 220 MG CAP PO SCH (09:38)
[2020-04-19] MEDS: FLUoxetine HCl 20 MG CAP PO SCH (09:38)
[2020-04-19] MEDS: Fish Oil 1,000 MG CAP PO SCH (09:38)
[2020-04-19] MEDS: Senokot S 8.6-50 MG TAB PO SCH ×2 (09:38→20:37)
[2020-04-19] MEDS: ALPRAZolam 1 MG TAB PO SCH ×3 (11:06→20:37)
--- NOTE | 2020-04-19 13:21 | PDOC.HOSPP ---
- Subjective Encounter Date: 04/19/20 Encounter Time: 08:00 Subjective: Patient seen in follow-up for COVID-19 action pneumonia. Denies chest pain. Reports feeling better. - Objective Vital Signs & Weight: Vital Signs (12 hours) Temp Pulse Resp BP Pulse Ox 04/19/20 09:45 98.5 F 62 20 112/65 98 04/19/20 04:50 98 04/19/20 04:00 97.9 F 58 L 20 115/65 98 Weight Weight 167 lb 8 oz I&O: 04/18/20 04/19/20 04/20/20 06:59 06:59 06:59 Intake Total 800 480 800 Output Total 666 285 9152 Balance -100 -20 -200 Result Diagrams: 04/16/20 04:52 04/16/20 04:52 Additional Labs: I reviewed patient's labs and MAR EKG Reviewed by me: Yes (Normal sinus rhythm on telemetry) Hospitalist ROS - Review of Systems Cardiovascular: denies: chest pain, palpitations, orthopnea, paroxysmal noc. dyspnea, edema, light headedness Gastrointestinal: denies: nausea, vomiting, abdominal pain, diarrhea, constipation, melena, hematochezia - Medication Medications: Active Medications Generic Name Dose Route Start Last Admin Trade Name Freq PRN Reason Stop Dose Admin Acetaminophen 650 mg 04/12/20 22:10 04/14/20 10:47 Acetaminophen 325 Mg Tab PO 650 mg Q4H PRN Administration Headache/Fever/Mild Pain (1-3) Hydrocodone Bitart/Acetaminophen 1 tab 04/12/20 22:10 04/18/20 21:57 Hydrocodone/Acetaminophen 5/325 Mg Tablet PO 1 tab Q4H PRN Administration Moderate Pain (4-6) Albuterol Sulfate 2 puff 04/14/20 00:36 04/15/20 07:41 Albuterol 200 Puff (6.7gm Inhaler) INH 2 puff [id number] PRN Administration Wheezing Alprazolam 1 mg 04/13/20 15:00 04/19/20 11:06 Alprazolam 1 Mg Tab PO 1 mg TID PALMA Administration Aripiprazole 10 mg 04/14/20 09:00 04/19/20 09:37 Aripiprazole 10 Mg Tab PO 10 mg DAILY PALMA Administration Ascorbic Acid 1,000 mg 04/13/20 09:00 04/19/20 09:37 Ascorbic Acid 500 Mg Chewable Tablet PO 1,000 mg DAILY PALMA Administration Atorvastatin Calcium 20 mg 04/13/20 21:00 04/18/20 21:56 Atorvastatin Calcium 20 Mg Tab PO 20 mg HS PALMA Administration Cholecalciferol 400 units 04/13/20 09:00 04/19/20 09:37 Cholecalciferol (Vitamin D3) 400 Units Tab PO 400 units DAILY PALMA Administration Divalproex Sodium 500 mg 04/13/20 21:00 04/18/20 21:[address] 500 Mg Tab PO 500 mg HS PALMA Administration Enoxaparin Sodium 30 mg 04/13/20 09:00 04/19/20 09:37 Enoxaparin Sodium 30 Mg/0.3 Ml Syringe SC 30 mg 0900 PALMA Administration Fish Oil 1,000 mg 04/14/20 09:00 04/19/20 09:38 Fish Oil 1,000 Mg Cap PO 1,000 mg DAILY PALMA Administration Fluoxetine HCl 60 mg 04/14/20 09:00 04/19/20 09:38 Fluoxetine Hcl 20 Mg Cap PO 60 mg DAILY PALMA Administration Guaifenesin/Dextromethorphan 15 ml 04/12/20 22:10 04/19/20 03:42 Guaifenesin Dm 100-10/5 Ml Udcup PO 15 ml Q4H PRN Administration Cough Dexamethasone 6 mg/ Sodium 51.5 mls @ 101.756 mls/hr 04/13/20 09:00 04/19/20 09:36 Chloride IVPB 51.5 mls DAILY PALMA Administration Levothyroxine Sodium 75 mcg 04/14/20 06:00 04/19/20 05:32 Levothyroxine Sodium 75 Mcg Tab PO 75 mcg 0600 PALMA Administration Loratadine 10 mg 04/16/20 21:00 04/18/20 21:56 Loratadine 10 Mg Tab PO 10 mg HS PALMA Administration Nicotine 21 mg 04/14/20 17:00 04/18/20 15:43 Nicotine 21 Mg Patch TD 21 mg Q24HR PALMA Administration Senna/Docusate Sodium 1 tab 04/13/20 21:00 04/19/20 09:38 Senokot S 8.6-50 Mg Tab PO 1 tab BID PALMA Administration Zinc Sulfate 220 mg 04/13/20 09:00 04/19/20 09:38 Zinc Sulfate 220 Mg Cap PO 220 mg DAILY PALMA Administration - Exam General Appearance: awake alert ENT: normocephalic atraumatic, no oropharyngeal lesions Neck: supple Heart: RRR Respiratory: CTAB Gastrointestinal: soft, non-tender Skin: no rashes Psychiatric: normal affect, normal behavior Hosp A/P - Plan 69-year-old lady, admitted on April 12, 2020 for Covid pneumonia. She is being treated with dexamethasone, remdesivir, vitamin C, vitamin D and zinc. She was transitioned to high flow oxygen from nasal cannula. - Problem (1) Pneumonia due to COVID-19 virus Code(s): U07.1 - COVID-19; J12.89 - OTHER VIRAL PNEUMONIA Status: Acute (2) Acute hypoxic respiratory failure Status: Acute (3) Rhabdomyolysis Code(s): M62.82 - RHABDOMYOLYSIS Status: Acute (4) Elevated troponin Code(s): R77.8 - OTHER SPECIFIED ABNORMALITIES OF PLASMA PROTEINS Status: Acute (5) UTI (urinary tract infection) Status: Ruled out (6) BK (acute kidney injury) Code(s): N17.9 - ACUTE KIDNEY FAILURE, UNSPECIFIED Status: Resolved - Plan Patient completed remdesivir. Continue dexamethasone. Pt is on ceftriaxone and azithromycin. Trend inflammatory markers. Patient continues to be on high flow oxygen. DVT prophylaxis with Lovenox.
[2020-04-19] MEDS: Nicotine 21 MG PATCH TD SCH (17:43)
[2020-04-19] MEDS: Loratadine 10 MG TAB PO SCH (20:37)
[2020-04-19] MEDS: Atorvastatin Calcium 20 MG TAB PO SCH (20:37)
[2020-04-19] MEDS: Divalproex Sodium DR 500 MG TAB PO SCH (20:37)
[2020-04-20] MEDS: Levothyroxine Sodium 75 MCG TAB PO SCH (06:17)
--- NOTE | 2020-04-20 08:39 | PDOC.HOSPP ---
- Subjective Encounter Date: 04/20/20 Encounter Time: 10:20 Subjective: Patient still requiring high flow O2. Asking to go home. Up a little with PT. - Objective Vital Signs & Weight: Vital Signs (12 hours) Temp Pulse Resp BP Pulse Ox 04/20/20 02:25 98.1 F 58 L 20 127/64 93 L 04/19/20 23:45 98.1 F 60 20 113/65 97 Weight Weight 167 lb 8 oz I&O: 04/19/20 04/20/20 04/21/20 06:59 06:59 06:59 Intake Total 480 1400 Output Total 500 2200 Balance -20 -800 Result Diagrams: 04/16/20 04:52 04/16/20 04:52 Hospitalist ROS - Review of Systems Constitutional: denies: fever, chills Respiratory: reports: cough, shortness of breath, SOB with excertion Cardiovascular: denies: chest pain, palpitations Gastrointestinal: denies: nausea, vomiting, abdominal pain - Medication Medications: Active Medications Generic Name Dose Route Start Last Admin Trade Name Freq PRN Reason Stop Dose Admin Acetaminophen 650 mg 04/12/20 22:10 04/14/20 10:47 Acetaminophen 325 Mg Tab PO 650 mg Q4H PRN Administration Headache/Fever/Mild Pain (1-3) Hydrocodone Bitart/Acetaminophen 1 tab 04/12/20 22:10 04/18/20 21:57 Hydrocodone/Acetaminophen 5/325 Mg Tablet PO 1 tab Q4H PRN Administration Moderate Pain (4-6) Albuterol Sulfate 2 puff 04/14/20 00:36 04/15/20 07:41 Albuterol 200 Puff (6.7gm Inhaler) INH 2 puff [id number] PRN Administration Wheezing Alprazolam 1 mg 04/13/20 15:00 04/19/20 20:37 Alprazolam 1 Mg Tab PO 1 mg TID PALMA Administration Aripiprazole 10 mg 04/14/20 09:00 04/19/20 09:37 Aripiprazole 10 Mg Tab PO 10 mg DAILY PALMA Administration Ascorbic Acid 1,000 mg 04/13/20 09:00 04/19/20 09:37 Ascorbic Acid 500 Mg Chewable Tablet PO 1,000 mg DAILY PALMA Administration Atorvastatin Calcium 20 mg 04/13/20 21:00 04/19/20 20:37 Atorvastatin Calcium 20 Mg Tab PO 20 mg HS PALMA Administration Cholecalciferol 400 units 04/13/20 09:00 04/19/20 09:37 Cholecalciferol (Vitamin D3) 400 Units Tab PO 400 units DAILY PALMA Administration Divalproex Sodium 500 mg 04/13/20 21:00 04/19/20 20:[address] 500 Mg Tab PO 500 mg HS PALMA Administration Fish Oil 1,000 mg 04/14/20 09:00 04/19/20 09:38 Fish Oil 1,000 Mg Cap PO 1,000 mg DAILY PALMA Administration Fluoxetine HCl 60 mg 04/14/20 09:00 04/19/20 09:38 Fluoxetine Hcl 20 Mg Cap PO 60 mg DAILY PALMA Administration Guaifenesin/Dextromethorphan 15 ml 04/12/20 22:10 04/19/20 03:42 Guaifenesin Dm 100-10/5 Ml Udcup PO 15 ml Q4H PRN Administration Cough Dexamethasone 6 mg/ Sodium 51.5 mls @ 101.756 mls/hr 04/13/20 09:00 04/19/20 09:36 Chloride IVPB 51.5 mls DAILY PALMA Administration Levothyroxine Sodium 75 mcg 04/14/20 06:00 04/20/20 06:17 Levothyroxine Sodium 75 Mcg Tab PO 75 mcg 0600 PALMA Administration Loratadine 10 mg 04/16/20 21:00 04/19/20 20:37 Loratadine 10 Mg Tab PO 10 mg HS PALMA Administration Nicotine 21 mg 04/14/20 17:00 04/19/20 17:43 Nicotine 21 Mg Patch TD 21 mg Q24HR PALMA Administration Senna/Docusate Sodium 1 tab 04/13/20 21:00 04/19/20 20:37 Senokot S 8.6-50 Mg Tab PO 1 tab BID PALMA Administration Zinc Sulfate 220 mg 04/13/20 09:00 04/19/20 09:38 Zinc Sulfate 220 Mg Cap PO 220 mg DAILY PALMA Administration - Exam General Appearance: NAD, awake alert ENT: moist mucosa Heart: RRR, no murmur, no gallops, no rubs Respiratory: no wheezes, no ronchi, normal chest expansion, no tachypnea, rales Gastrointestinal: soft, non-tender, non-distended, normal bowel sounds Extremities: no edema Psychiatric: normal affect, normal behavior, A&O x 3 Hosp A/P - Plan 69-year-old lady, admitted on April 12, 2020 for Covid pneumonia. She is being treated with dexamethasone, remdesivir, vitamin C, vitamin D and zinc. She was transitioned to high flow oxygen from nasal cannula. - Problem (1) Pneumonia due to COVID-19 virus Code(s): U07.1 - COVID-19; J12.89 - OTHER VIRAL PNEUMONIA Status: Acute (2) Acute hypoxic respiratory failure Status: Acute (3) Rhabdomyolysis Code(s): M62.82 - RHABDOMYOLYSIS Status: Acute (4) Elevated troponin Code(s): R77.8 - OTHER SPECIFIED ABNORMALITIES OF PLASMA PROTEINS Status: Acute (5) UTI (urinary tract infection) Status: Ruled out (6) BK (acute kidney injury) Code(s): N17.9 - ACUTE KIDNEY FAILURE, UNSPECIFIED Status: Resolved - Plan Patient completed remdesivir. Continue dexamethasone. Patient is off antibiotics now. Trend inflammatory markers. Patient continues to be on high flow oxygen. DVT prophylaxis with Lovenox- increased dose due to improved renal function.
[2020-04-20] MEDS: Dexamethasone 6 MG in Sodium Chloride 0.9% 50 ML IVPB SCH (08:43)
[2020-04-20] MEDS: ALPRAZolam 1 MG TAB PO SCH ×3 (08:46→21:04)
[2020-04-20] MEDS: Aripiprazole 10 MG TAB PO SCH (08:46)
[2020-04-20] MEDS: Ascorbic Acid 500 mg Chewable Tablet PO SCH (08:47)
[2020-04-20] MEDS: Cholecalciferol (Vitamin D3) 400 UNITS TAB PO SCH (08:47)
[2020-04-20] MEDS: Fish Oil 1,000 MG CAP PO SCH (08:48)
[2020-04-20] MEDS: Senokot S 8.6-50 MG TAB PO SCH ×2 (08:48→21:38)
[2020-04-20] MEDS: Enoxaparin Sodium 40 MG/0.4 ML SYRINGE SC SCH ×2 (08:48→21:04)
[2020-04-20] MEDS: Zinc Sulfate 220 MG CAP PO SCH (08:48)
[2020-04-20] MEDS: FLUoxetine HCl 20 MG CAP PO SCH (08:48)
[2020-04-20] MEDS: Nicotine 21 MG PATCH TD SCH (16:43)
[2020-04-20] MEDS: Loratadine 10 MG TAB PO SCH (21:04)
[2020-04-20] MEDS: Divalproex Sodium DR 500 MG TAB PO SCH (21:04)
[2020-04-20] MEDS: Atorvastatin Calcium 20 MG TAB PO SCH (21:04)
[2020-04-21] MEDS: Levothyroxine Sodium 75 MCG TAB PO SCH (05:02)
[2020-04-21 05:20] LABS: #Basophils 0.2 thou/uL (0.0-0.2); #Lymphocytes 3.5 thou/uL (1.20-3.40); #Monocytes 0.7 thou/uL (0.11-0.59); #Neutrophils 4.8 thou/uL (1.40-6.50); %Basophils 1.8 % (0.0-1.0); %Eosinophils 0.3 % (0.0-10.0); %Lymphocytes 37.9 % (21.0-51.0); %Monocytes 7.4 % (0.0-10.0); %Neutrophils 52.6 % (42.0-75.0); Hemoglobin 11.4 g/dL (12.0-16.0); Mean Corpuscular HGB CONC 33.3 g/dL (32.0-36.0); Mean Corpuscular Hemoglobin 34.1 pg (27.0-31.0); Mean Platelet Volume 6.8 fL (7.4-10.4); Platelet Count 436 thou/uL (130-400); RBC Distribution Width 12.5 % (11.5-14.5); Red Blood Cell (RBC) Count 3.33 mill/uL (4.20-5.40); White Blood Cell (WBC) Count 9.2 thou/uL (4.8-10.8)
[2020-04-21 05:42] LABS: Anion Gap 12 mmol/L (10-20); BUN (Urea Nitrogen) 10 mg/dL (9.8-20.1); Calc. Creatinine Clearance 106 mL/min (70-130); Calcium 7.8 mg/dL (7.8-10.44); Carbon Dioxide 32 mmol/L (23-31); Chloride 97 mmol/L (98-107); Glucose 76 mg/dL (80-115); Potassium 3.9 mmol/L (3.5-5.1); Sodium 137 mmol/L (136-145)
[2020-04-21] MEDS: ALPRAZolam 1 MG TAB PO SCH ×3 (09:43→20:41)
[2020-04-21] MEDS: Aripiprazole 10 MG TAB PO SCH (09:43)
[2020-04-21] MEDS: Ascorbic Acid 500 mg Chewable Tablet PO SCH (09:43)
[2020-04-21] MEDS: Enoxaparin Sodium 40 MG/0.4 ML SYRINGE SC SCH ×2 (09:44→20:41)
[2020-04-21] MEDS: Dexamethasone 6 MG in Sodium Chloride 0.9% 50 ML IVPB SCH (09:44)
[2020-04-21] MEDS: Fish Oil 1,000 MG CAP PO SCH (09:44)
[2020-04-21] MEDS: Cholecalciferol (Vitamin D3) 400 UNITS TAB PO SCH (09:44)
[2020-04-21] MEDS: FLUoxetine HCl 20 MG CAP PO SCH (09:44)
[2020-04-21] MEDS: Senokot S 8.6-50 MG TAB PO SCH (09:45)
[2020-04-21] MEDS: Zinc Sulfate 220 MG CAP PO SCH (09:45)
[2020-04-21] MEDS: Nicotine 21 MG PATCH TD SCH (16:20)
[2020-04-21] MEDS: Guaifenesin DM 100-10/5 ML UDCUP PO PRN (16:20)
--- NOTE | 2020-04-21 19:19 | PDOC.HOSPP ---
- Subjective Encounter Date: 04/21/20 Encounter Time: 13:00 Subjective: Patient seen for follow-up regarding COVID-19 pneumonia. She reports that she has shortness of breath with exertion. - Objective Vital Signs & Weight: Vital Signs (12 hours) Temp Pulse Resp BP Pulse Ox 04/21/20 16:30 98.1 F 67 20 105/57 L 100 04/21/20 12:40 98.1 F 59 L 20 113/65 98 Weight Weight 167 lb 8 oz I&O: 04/20/20 04/21/20 04/22/20 06:59 06:59 06:59 Intake Total 1560 950 450 Output Total 2375 3400 450 Balance -815 -2450 0 Result Diagrams: 04/21/20 04:55 04/21/20 04:55 Additional Labs: Labs and MAR reviewed by me EKG Reviewed by me: Yes (Telemetry shows normal sinus rhythm) Hospitalist ROS - Review of Systems Respiratory: reports: cough, dry, SOB with excertion Cardiovascular: denies: chest pain, palpitations, orthopnea, paroxysmal noc. dyspnea, edema, light headedness - Medication Medications: Active Medications Generic Name Dose Route Start Last Admin Trade Name Freq PRN Reason Stop Dose Admin Acetaminophen 650 mg 04/12/20 22:10 04/14/20 10:47 Acetaminophen 325 Mg Tab PO 650 mg Q4H PRN Administration Headache/Fever/Mild Pain (1-3) Hydrocodone Bitart/Acetaminophen 1 tab 04/12/20 22:10 04/18/20 21:57 Hydrocodone/Acetaminophen 5/325 Mg Tablet PO 1 tab Q4H PRN Administration Moderate Pain (4-6) Albuterol Sulfate 2 puff 04/14/20 00:36 04/15/20 07:41 Albuterol 200 Puff (6.7gm Inhaler) INH 2 puff [id number] PRN Administration Wheezing Alprazolam 1 mg 04/13/20 15:00 04/21/20 16:20 Alprazolam 1 Mg Tab PO 1 mg TID PALMA Administration Aripiprazole 10 mg 04/14/20 09:00 04/21/20 09:43 Aripiprazole 10 Mg Tab PO 10 mg DAILY PALMA Administration Ascorbic Acid 1,000 mg 04/13/20 09:00 04/21/20 09:43 Ascorbic Acid 500 Mg Chewable Tablet PO 1,000 mg DAILY PALMA Administration Atorvastatin Calcium 20 mg 04/13/20 21:00 04/20/20 21:04 Atorvastatin Calcium 20 Mg Tab PO 20 mg HS PALMA Administration Cholecalciferol 400 units 04/13/20 09:00 04/21/20 09:44 Cholecalciferol (Vitamin D3) 400 Units Tab PO 400 units DAILY PALMA Administration Divalproex Sodium 500 mg 04/13/20 21:00 04/20/20 21:[address] 500 Mg Tab PO 500 mg HS PALMA Administration Enoxaparin Sodium 40 mg 04/20/20 09:00 04/21/20 09:44 Enoxaparin Sodium 40 Mg/0.4 Ml Syringe SC 40 mg [id number] PALMA Administration Fish Oil 1,000 mg 04/14/20 09:00 04/21/20 09:44 Fish Oil 1,000 Mg Cap PO 1,000 mg DAILY PALMA Administration Fluoxetine HCl 60 mg 04/14/20 09:00 04/21/20 09:44 Fluoxetine Hcl 20 Mg Cap PO 60 mg DAILY PALMA Administration Guaifenesin/Dextromethorphan 15 ml 04/12/20 22:10 04/21/20 16:20 Guaifenesin Dm 100-10/5 Ml Udcup PO 15 ml Q4H PRN Administration Cough Dexamethasone 6 mg/ Sodium 51.5 mls @ 101.756 mls/hr 04/13/20 09:00 04/21/20 09:44 Chloride IVPB 51.5 mls DAILY PALMA Administration Levothyroxine Sodium 75 mcg 04/14/20 06:00 04/21/20 05:02 Levothyroxine Sodium 75 Mcg Tab PO 75 mcg 0600 PALMA Administration Loratadine 10 mg 04/16/20 21:00 04/20/20 21:04 Loratadine 10 Mg Tab PO 10 mg HS PALMA Administration Nicotine 21 mg 04/14/20 17:00 04/21/20 16:20 Nicotine 21 Mg Patch TD 21 mg Q24HR PALMA Administration Senna/Docusate Sodium 1 tab 04/13/20 21:00 04/21/20 09:45 Senokot S 8.6-50 Mg Tab PO 1 tab BID PALMA Administration Zinc Sulfate 220 mg 04/13/20 09:00 04/21/20 09:45 Zinc Sulfate 220 Mg Cap PO 220 mg DAILY PALMA Administration - Exam General - other findings: Obese ENT: no oropharyngeal lesions Neck: supple, symmetric Heart: RRR Respiratory: no wheezes, rhonchi Gastrointestinal: soft, non-tender Skin: no rashes Psychiatric: normal affect Hosp A/P - Plan 69-year-old lady, admitted on April 12, 2020 for Covid pneumonia. She is being treated with dexamethasone, remdesivir, vitamin C, vitamin D and zinc. She was transitioned to high flow oxygen from nasal cannula. - Problem (1) Pneumonia due to COVID-19 virus Code(s): U07.1 - COVID-19; J12.89 - OTHER VIRAL PNEUMONIA Status: Acute (2) Acute hypoxic respiratory failure Status: Acute (3) Rhabdomyolysis Code(s): M62.82 - RHABDOMYOLYSIS Status: Acute (4) Elevated troponin Code(s): R77.8 - OTHER SPECIFIED ABNORMALITIES OF PLASMA PROTEINS Status: Acute (5) UTI (urinary tract infection) Status: Ruled out (6) BK (acute kidney injury) Code(s): N17.9 - ACUTE KIDNEY FAILURE, UNSPECIFIED Status: Resolved - Plan Patient completed remdesivir. Patient is currently on dexamethasone. Continue ceftriaxone and azithromycin. Trend inflammatory markers. Patient continues to be on high flow oxygen. DVT prophylaxis with Lovenox.
[2020-04-21] MEDS: Atorvastatin Calcium 20 MG TAB PO SCH (20:40)
[2020-04-21] MEDS: Loratadine 10 MG TAB PO SCH (20:41)
[2020-04-21] MEDS: Divalproex Sodium DR 500 MG TAB PO SCH (20:41)
[2020-04-22] MEDS: Senokot S 8.6-50 MG TAB PO SCH ×3 (01:09→21:10)
[2020-04-22] MEDS: Levothyroxine Sodium 75 MCG TAB PO SCH (05:53)
[2020-04-22] MEDS: Dexamethasone 6 MG in Sodium Chloride 0.9% 50 ML IVPB SCH (07:47)
[2020-04-22] MEDS: Enoxaparin Sodium 40 MG/0.4 ML SYRINGE SC SCH ×2 (07:47→21:10)
[2020-04-22] MEDS: Ascorbic Acid 500 mg Chewable Tablet PO SCH (07:47)
[2020-04-22] MEDS: Aripiprazole 10 MG TAB PO SCH (07:47)
[2020-04-22] MEDS: Cholecalciferol (Vitamin D3) 400 UNITS TAB PO SCH (07:47)
[2020-04-22] MEDS: ALPRAZolam 1 MG TAB PO SCH ×3 (07:47→21:09)
[2020-04-22] MEDS: Fish Oil 1,000 MG CAP PO SCH (07:47)
[2020-04-22] MEDS: FLUoxetine HCl 20 MG CAP PO SCH (07:48)
[2020-04-22] MEDS: Zinc Sulfate 220 MG CAP PO SCH (07:48)
[2020-04-22] MEDS: Nicotine 21 MG PATCH TD SCH (16:38)
--- NOTE | 2020-04-22 17:58 | PDOC.HOSPP ---
- Subjective Encounter Date: 04/22/20 Encounter Time: 07:30 Subjective: Patient seen for follow-up acute hypoxic respiratory failure. Currently on high flow oxygen, denies any new complaints. - Objective Vital Signs & Weight: Vital Signs (12 hours) Temp Pulse Resp BP BP BP Pulse Ox 04/22/20 13:00 98.5 F 63 20 101/58 L 98 04/22/20 09:47 117/57 L 110/59 L 04/22/20 08:00 97 04/22/20 07:45 98.5 F 54 L 18 128/75 97 Pulse Ox Pulse Ox Pulse Ox 04/22/20 13:00 04/22/20 09:47 92 L 94 L 88 L 04/22/20 08:00 04/22/20 07:45 Weight Weight 167 lb 8 oz I&O: 04/21/20 04/22/20 04/23/20 06:59 06:59 06:59 Intake Total 950 750 300 Output Total 3400 450 Balance -2450 300 300 Result Diagrams: 04/21/20 04:55 04/21/20 04:55 Additional Labs: I reviewed patient's labs and MAR EKG Reviewed by me: Yes (Normal sinus rhythm on telemetry) Hospitalist ROS - Review of Systems Respiratory: reports: cough, dry, SOB with excertion Cardiovascular: denies: chest pain, palpitations, orthopnea, paroxysmal noc. dyspnea, edema, light headedness - Medication Medications: Active Medications Generic Name Dose Route Start Last Admin Trade Name Freq PRN Reason Stop Dose Admin Acetaminophen 650 mg 04/12/20 22:10 04/14/20 10:47 Acetaminophen 325 Mg Tab PO 650 mg Q4H PRN Administration Headache/Fever/Mild Pain (1-3) Hydrocodone Bitart/Acetaminophen 1 tab 04/12/20 22:10 04/18/20 21:57 Hydrocodone/Acetaminophen 5/325 Mg Tablet PO 1 tab Q4H PRN Administration Moderate Pain (4-6) Albuterol Sulfate 2 puff 04/14/20 00:36 04/15/20 07:41 Albuterol 200 Puff (6.7gm Inhaler) INH 2 puff [id number] PRN Administration Wheezing Alprazolam 1 mg 04/13/20 15:00 04/22/20 16:38 Alprazolam 1 Mg Tab PO 1 mg TID PALMA Administration Aripiprazole 10 mg 04/14/20 09:00 04/22/20 07:47 Aripiprazole 10 Mg Tab PO 10 mg DAILY PALMA Administration Ascorbic Acid 1,000 mg 04/13/20 09:00 04/22/20 07:47 Ascorbic Acid 500 Mg Chewable Tablet PO 1,000 mg DAILY PALMA Administration Atorvastatin Calcium 20 mg 04/13/20 21:00 04/21/20 20:40 Atorvastatin Calcium 20 Mg Tab PO 20 mg HS PALMA Administration Cholecalciferol 400 units 04/13/20 09:00 04/22/20 07:47 Cholecalciferol (Vitamin D3) 400 Units Tab PO 400 units DAILY PALMA Administration Divalproex Sodium 500 mg 04/13/20 21:00 04/21/20 20:[address] 500 Mg Tab PO 500 mg HS PALMA Administration Enoxaparin Sodium 40 mg 04/20/20 09:00 04/22/20 07:47 Enoxaparin Sodium 40 Mg/0.4 Ml Syringe SC 40 mg 09,[id number] PALMA Administration Fish Oil 1,000 mg 04/14/20 09:00 04/22/20 07:47 Fish Oil 1,000 Mg Cap PO 1,000 mg DAILY PALMA Administration Fluoxetine HCl 60 mg 04/14/20 09:00 04/22/20 07:48 Fluoxetine Hcl 20 Mg Cap PO 60 mg DAILY PALMA Administration Guaifenesin/Dextromethorphan 15 ml 04/12/20 22:10 04/21/20 16:20 Guaifenesin Dm 100-10/5 Ml Udcup PO 15 ml Q4H PRN Administration Cough Dexamethasone 6 mg/ Sodium 51.5 mls @ 101.756 mls/hr 04/13/20 09:00 04/22/20 07:47 Chloride IVPB 51.5 mls DAILY PALMA Administration Levothyroxine Sodium 75 mcg 04/14/20 06:00 04/22/20 05:53 Levothyroxine Sodium 75 Mcg Tab PO 75 mcg 0600 PALMA Administration Loratadine 10 mg 04/16/20 21:00 04/21/20 20:41 Loratadine 10 Mg Tab PO 10 mg HS PALMA Administration Nicotine 21 mg 04/14/20 17:00 04/22/20 16:38 Nicotine 21 Mg Patch TD 21 mg Q24HR PALMA Administration Senna/Docusate Sodium 1 tab 04/13/20 21:00 04/22/20 07:48 Senokot S 8.6-50 Mg Tab PO 1 tab BID PALMA Administration Zinc Sulfate 220 mg 04/13/20 09:00 04/22/20 07:48 Zinc Sulfate 220 Mg Cap PO 220 mg DAILY PALMA Administration - Exam General - other findings: Obese ENT: no oropharyngeal lesions Neck: supple Heart: RRR Respiratory: CTAB Gastrointestinal: soft, non-tender Extremities: no clubbing Psychiatric: normal affect, normal behavior Hosp A/P - Plan 69-year-old lady, admitted on April 12, 2020 for Covid pneumonia. She is being treated with dexamethasone, remdesivir, vitamin C, vitamin D and zinc. She was transitioned to high flow oxygen from nasal cannula. -Assessment (1) Acute hypoxic respiratory failure Status: Acute (2) Pneumonia due to COVID-19 virus Code(s): U07.1 - COVID-19; J12.89 - OTHER VIRAL PNEUMONIA Status: Acute (3) Rhabdomyolysis Code(s): M62.82 - RHABDOMYOLYSIS Status: Acute (4) Elevated troponin Code(s): R77.8 - OTHER SPECIFIED ABNORMALITIES OF PLASMA PROTEINS Status: Acute (5) UTI (urinary tract infection) Status: Ruled out (6) BK (acute kidney injury) Code(s): N17.9 - ACUTE KIDNEY FAILURE, UNSPECIFIED Status: Resolved - Plan S/p remdesivir. Continue dexamethasone. Patient is also on ceftriaxone and azithromycin. Trend inflammatory markers. Patient continues to be on high flow oxygen. Try to wean off. DVT prophylaxis with Lovenox.
[2020-04-22] MEDS: Atorvastatin Calcium 20 MG TAB PO SCH (21:09)
[2020-04-22] MEDS: Divalproex Sodium DR 500 MG TAB PO SCH (21:09)
[2020-04-22] MEDS: Loratadine 10 MG TAB PO SCH (21:09)
[2020-04-23] MEDS: Levothyroxine Sodium 75 MCG TAB PO SCH (06:02)
[2020-04-23] MEDS: Dexamethasone 6 MG in Sodium Chloride 0.9% 50 ML IVPB SCH (09:28)
[2020-04-23] MEDS: Enoxaparin Sodium 40 MG/0.4 ML SYRINGE SC SCH ×2 (09:29→20:50)
[2020-04-23] MEDS: Guaifenesin DM 100-10/5 ML UDCUP PO PRN (09:29)
[2020-04-23] MEDS: ALPRAZolam 1 MG TAB PO SCH ×2 (09:30→16:24)
[2020-04-23] MEDS: FLUoxetine HCl 20 MG CAP PO SCH (09:30)
[2020-04-23] MEDS: Aripiprazole 10 MG TAB PO SCH (09:30)
[2020-04-23] MEDS: Cholecalciferol (Vitamin D3) 400 UNITS TAB PO SCH (09:30)
[2020-04-23] MEDS: Fish Oil 1,000 MG CAP PO SCH (09:30)
[2020-04-23] MEDS: Ascorbic Acid 500 mg Chewable Tablet PO SCH (09:30)
[2020-04-23] MEDS: Senokot S 8.6-50 MG TAB PO SCH (09:31)
[2020-04-23] MEDS: Zinc Sulfate 220 MG CAP PO SCH (09:31)
[2020-04-23] MEDS ORDERED: ALPRAZolam 1 MG TAB PO SCH (16:15)
[2020-04-23] MEDS: Nicotine 21 MG PATCH TD SCH (16:24)
--- NOTE | 2020-04-23 18:15 | PDOC.HOSPP ---
- Subjective Encounter Date: 04/23/20 Encounter Time: 14:00 Subjective: Patient seen for follow-up regarding hypoxic respiratory failure. She is more alert today, reports feeling better. - Objective Vital Signs & Weight: Vital Signs (12 hours) Temp Pulse Resp BP Pulse Ox 04/23/20 16:00 97.5 F L 61 19 114/66 97 04/23/20 12:00 97.9 F 64 18 114/65 97 04/23/20 09:30 95 04/23/20 08:18 97.7 F 60 20 121/68 95 Weight Admit Weight 167 lb 8 oz Weight 167 lb 8 oz I&O: 04/22/20 04/23/20 04/24/20 06:59 06:59 06:59 Intake Total 750 900 770 Output Total 450 700 Balance 300 900 70 Result Diagrams: 04/21/20 04:55 04/21/20 04:55 Additional Labs: Labs and MAR reviewed by me Hospitalist ROS - Review of Systems Respiratory: reports: cough, dry, SOB with excertion. denies: shortness of breath, hemoptysis, pleuritic pain, sputum, wheezing Gastrointestinal: denies: nausea, vomiting, abdominal pain, diarrhea, constipati on, melena, hematochezia - Medication Medications: Active Medications Generic Name Dose Route Start Last Admin Trade Name Freq PRN Reason Stop Dose Admin Acetaminophen 650 mg 04/12/20 22:10 04/14/20 10:47 Acetaminophen 325 Mg Tab PO 650 mg Q4H PRN Administration Headache/Fever/Mild Pain (1-3) Albuterol Sulfate 2 puff 04/14/20 00:36 04/15/20 07:41 Albuterol 200 Puff (6.7gm Inhaler) INH 2 puff [id number] PRN Administration Wheezing Alprazolam 1 mg 04/23/20 16:15 04/23/20 17:04 Alprazolam 1 Mg Tab PO 04/23/20 19:00 Not Given NOW PALMA Aripiprazole 10 mg 04/14/20 09:00 04/23/20 09:30 Aripiprazole 10 Mg Tab PO 10 mg DAILY PALMA Administration Ascorbic Acid 1,000 mg 04/13/20 09:00 04/23/20 09:30 Ascorbic Acid 500 Mg Chewable Tablet PO 1,000 mg DAILY PALMA Administration Atorvastatin Calcium 20 mg 04/13/20 21:00 04/22/20 21:09 Atorvastatin Calcium 20 Mg Tab PO 20 mg HS PALMA Administration Cholecalciferol 400 units 04/13/20 09:00 04/23/20 09:30 Cholecalciferol (Vitamin D3) 400 Units Tab PO 400 units DAILY PALMA Administration Divalproex Sodium 500 mg 04/13/20 21:00 04/22/20 21:[address] 500 Mg Tab PO 500 mg HS PALMA Administration Enoxaparin Sodium 40 mg 04/20/20 09:00 04/23/20 09:29 Enoxaparin Sodium 40 Mg/0.4 Ml Syringe SC 40 mg 09,2099 PALMA Administration Fish Oil 1,000 mg 04/14/20 09:00 04/23/20 09:30 Fish Oil 1,000 Mg Cap PO 1,000 mg DAILY PALMA Administration Fluoxetine HCl 60 mg 04/14/20 09:00 04/23/20 09:30 Fluoxetine Hcl 20 Mg Cap PO 60 mg DAILY PALMA Administration Guaifenesin/Dextromethorphan 15 ml 04/12/20 22:10 04/23/20 09:29 Guaifenesin Dm 100-10/5 Ml Udcup PO 15 ml Q4H PRN Administration Cough Dexamethasone 6 mg/ Sodium 51.5 mls @ 101.756 mls/hr 04/13/20 09:00 04/23/20 09:28 Chloride IVPB 51.5 mls DAILY PALMA Administration Levothyroxine Sodium 75 mcg 04/14/20 06:00 04/23/20 06:02 Levothyroxine Sodium 75 Mcg Tab PO 75 mcg 0600 PALMA Administration Loratadine 10 mg 04/16/20 21:00 04/22/20 21:09 Loratadine 10 Mg Tab PO 10 mg HS PALMA Administration Nicotine 21 mg 04/14/20 17:00 04/23/20 16:24 Nicotine 21 Mg Patch TD 21 mg Q24HR PALMA Administration Senna/Docusate Sodium 1 tab 04/13/20 21:00 04/23/20 09:31 Senokot S 8.6-50 Mg Tab PO 1 tab BID PALMA Administration Zinc Sulfate 220 mg 04/13/20 09:00 04/23/20 09:31 Zinc Sulfate 220 Mg Cap PO 220 mg DAILY PALMA Administration - Exam General Appearance: awake alert ENT: normocephalic atraumatic Neck: supple Heart: RRR Respiratory: CTAB Gastrointestinal: soft, non-tender Skin: no lesions Psychiatric: normal affect, normal behavior Hosp A/P - Plan 69-year-old lady, admitted on April 12, 2020 for Covid pneumonia. She is being treated with dexamethasone, remdesivir, vitamin C, vitamin D and zinc. She was transitioned to high flow oxygen from nasal cannula. -Assessment (1) Acute hypoxic respiratory failure Status: Acute (2) Pneumonia due to COVID-19 virus Code(s): U07.1 - COVID-19; J12.89 - OTHER VIRAL PNEUMONIA Status: Acute (3) Rhabdomyolysis Code(s): M62.82 - RHABDOMYOLYSIS Status: Acute (4) Elevated troponin Code(s): R77.8 - OTHER SPECIFIED ABNORMALITIES OF PLASMA PROTEINS Status: Acute (5) UTI (urinary tract infection) Status: Ruled out (6) BK (acute kidney injury) Code(s): N17.9 - ACUTE KIDNEY FAILURE, UNSPECIFIED Status: Resolved - Plan S/p remdesivir. Patient is on dexamethasone. Clinically improving, switch from high flow oxygen to low flow oxygen by nasal cannula today. Trend inflammatory markers. DVT prophylaxis with Lovenox.
[2020-04-23] MEDS: Loratadine 10 MG TAB PO SCH (20:50)
[2020-04-23] MEDS: Divalproex Sodium DR 500 MG TAB PO SCH (20:50)
[2020-04-23] MEDS: Atorvastatin Calcium 20 MG TAB PO SCH (20:50)
[2020-04-23] MEDS ORDERED: ALPRAZolam 1 MG TAB PO PRN (21:00)
[2020-04-24] MEDS: Levothyroxine Sodium 75 MCG TAB PO SCH (05:58)
[2020-04-24] MEDS: Senokot S 8.6-50 MG TAB PO SCH ×3 (05:58→09:10)
[2020-04-24] MEDS: Dexamethasone 6 MG in Sodium Chloride 0.9% 50 ML IVPB SCH (09:09)
[2020-04-24] MEDS: Ascorbic Acid 500 mg Chewable Tablet PO SCH (09:10)
[2020-04-24] MEDS: Cholecalciferol (Vitamin D3) 400 UNITS TAB PO SCH (09:10)
[2020-04-24] MEDS: Enoxaparin Sodium 40 MG/0.4 ML SYRINGE SC SCH (09:10)
[2020-04-24] MEDS: Aripiprazole 10 MG TAB PO SCH (09:10)
[2020-04-24] MEDS: Fish Oil 1,000 MG CAP PO SCH (09:10)
[2020-04-24] MEDS: Zinc Sulfate 220 MG CAP PO SCH (09:11)
[2020-04-24] MEDS: FLUoxetine HCl 20 MG CAP PO SCH (09:11)
[2020-04-24] MEDS ORDERED: ALPRAZolam 1 MG TAB PO PRN (09:18)
[2020-04-24 11:51] VITALS: TEMP 98.3
--- NOTE | 2020-04-24 13:18 | PDOC.DS.DS ---
Provider - Provider Date of Admission: 04/12/20 22:05 Date of Discharge: 04/24/20 Admitting Provider: Henrik Mares Primary Care Physician: Melinda Timmons Course - Hospital Course Hospital Course: Discharge diagnosis: 1. Acute hypoxic respiratory failure 2. COVID-19 pneumonia 3. Rhabdomyolysis 4. Hyponatremia 5. Abnormal LFTs Hospital course: Patient is a pleasant 69-year-old lady who was admitted to the hospital on April 12, 2020 for acute hypoxic respiratory failure secondary to COVID-19 pneumonia. She was treated with dexamethasone, zinc and vitamin C. Her oxygen requirements worsened and she had to go on high flow oxygen via nasal cannula. Towards the end of her hospitalization she improved and was weaned down to low flow oxygen via nasal cannula. She is being discharged back to her long-term care facility in a stable condition. Many thanks for allowing me to participate in your patient's care. Please feel free to contact me with any questions or concerns. Discharge destination: Long-term care facility, from where patient was admitted to the hospital Total amount of time spent coordinating this discharge: 33 minutes Resuscitation Status: 04/12/20 22:10 Resuscitation Status Routine Resuscitation Status: FULL: Full Resuscitation - Labs Lab Results: 04/21/20 04:55 04/21/20 04:55 Microbiology - Entire Visit 04/12/20 22:45 Venous blood - Right Arm Blood Culture - Final NO GROWTH IN 5 DAYS 04/12/20 22:21 Venous blood - Left Hand Blood Culture - Final NO GROWTH IN 5 DAYS - Physical Exam Vitals: Vital Signs (12 hours) Temp Pulse Resp BP Pulse Ox 04/24/20 10:59 98.3 F 62 22 H 102/60 96 04/24/20 09:10 95 04/24/20 07:38 97.2 F L 60 21 H 112/62 95 04/24/20 02:25 98.0 F 62 22 H 129/61 99 Weight Admit Weight 167 lb 8 oz Weight 167 lb 8 oz Physical Exam: The patient was seen and examined on the day of discharge. Patient denies chest pain or shortness of breath. Vital signs are stable. S1 and S2 are heard. Lungs are clear to auscultation bilaterally. Plan - Discharge Medications Prescriptions: Aspirin [Aspirin EC] 325 mg PO DAILY #7 tablet.dr Raymundo Medications: Medication Instructions Recorded Confirmed Type ALPRAZolam [Xanax] 1 mg PO TID 03/04/13 04/13/20 History FLUoxetine HCl [Prozac] 60 mg PO DAILY 03/04/13 04/13/20 History Levothyroxine Sodium [Synthroid] 75 mcg PO DAILY 03/04/13 04/13/20 History Acetaminophen [Tylenol Extra 1,000 mg PO Q6HR PRN 04/13/20 04/13/20 History Strength] Aripiprazole [Abilify] 10 mg PO DAILY 04/13/20 04/13/20 History Ascorbic Acid [Vitamin C] 1,000 mg PO DAILY 04/13/20 04/13/20 History Atorvastatin Calcium [Lipitor] 20 mg PO HS 04/13/20 04/13/20 History Cholecalciferol (Vitamin D3) 5,000 units PO DAILY 04/13/20 04/13/20 History [Vitamin D3] Divalproex Sodium DR [Depakote] 500 mg PO HS 04/13/20 04/13/20 History Fish Oil 1,000 mg PO DAILY 04/13/20 04/13/20 History Loratadine [Claritin] 10 mg PO HS 04/13/20 04/13/20 History Magnesium Hydroxide [Milk Of 30 ml PO DAILY PRN 04/13/20 04/13/20 History Magnesium] Ondansetron HCl [Zofran] 4 mg PO Q6HR PRN 04/13/20 04/13/20 History Zinc Acetate [Galzin] 50 mg PO DAILY 04/13/20 04/13/20 History guaiFENesin/Dextromethorphan 10 ml PO Q8HR PRN 04/13/20 04/13/20 History [Guaifenesin DM Syrup] Aspirin [Aspirin EC] 325 mg PO DAILY #7 tablet.dr 04/24/20 Rx Nicotine [Nicoderm CQ] 21 mg TD Q24HR patch 04/24/20 Rx Allergies: lithium [[place]] Allergy (Intermediate, Verified 04/12/20 23:13) - Discharge Instructions Activity:: Activity as Tolerated Nourishment:: Regular Diet - Follow up Plan Referrals: Nikki Swift MD [Primary Care Provider] - 3 Days Disposition: LONG TERM FACILITY Quality - Care Measures CORE MEASURES:: N/A
[2020-04-24 14:34] VITALS: BP 122/68
--- NOTE | 2020-04-27 22:12 | PQF ---
CLINICAL DOCUMENTATION CLARIFICATION FORM: Dear : Dez Gomez Date / Time:04/27/20 22:12 Please exercise your independent, professional judgment in responding to the clarification form. Clinical indicators are provided on the bottom of this form for your review Please check appropriate box(es): AMI TYPE: [ ] Type 1 GA (STEMI) [ x ] Type 2 GA (T2MI) secondary to, please specify: covid-19 pneumonia [ ] No Myocardial infarction [ ] Other diagnosis, please specify [ ] Unable to determine Physician Signature: Date/Time: For continuity of documentation, please document condition throughout progress notes and discharge summary. Thank You. To be completed by CDI/Coding staff for physician review: Present Clinical Indicators - Signs / Symptoms / Labs Results and Location in Medical Record [x] elevated troponin likely STEMI type 2 demand ischemia in the setting of hypoxia renal failure and infection HP 04/12 [x] elevated troponin ED Notes 04/12 [x] She denies chest pain PN 04/13 [x] Troponin: 04/12=0.030 04/13=0.029 Laboratory 04/12 Present Risk Factors Results and Location in Medical Record [x] 69 years old female ED Notes 04/12 [x] HLD ED Notes 04/12 [x] High Cholesterol ED Notes 04/12 [x] Smoker ED Notes 04/12 [x] Covid19 PNA ED Notes 04/12 [x] Acute respiratory failure HP 04/12 [x] BK HP 04/12 Present Treatments Results and Location in Medical Record [x] Monitor troponin HP 04/12 [x] IVF MAR 04/12 [x] Lovenox 30mg Subcu JUN 26 [x] Aspirin 325mg oral JUN 15 CDS/Promotions Assistant Signature:Dagoberto Crooknicolas Guerrero Phone #: [phone] Date/Time:04/27/20 This is a permanent part of the Medical Record [facility]
== END 2020-04-24 15:03 | DRG 177 ==
LOC: ERS 20:37 → 2SW 22:05
PROVIDERS: ADMIT Internal Medicine; ATTEND Internal Medicine
PROC: XW033E5 Introduction of Remdesivir Anti-infective into Peripheral Vein, Percutaneous Approach, New Technology Group 5 (ICD-10-PCS; principal; 2020-04-14)
DX: U07.1 COVID-19 (principal); J12.82 Pneumonia due to coronavirus disease 2019; J96.01 Acute respiratory failure with hypoxia; I21.A1 Myocardial infarction type 2; N17.9 Acute kidney failure, unspecified; M62.82 Rhabdomyolysis; E87.1 Hypo-osmolality and hyponatremia; E78.5 Hyperlipidemia, unspecified; E78.00 Pure hypercholesterolemia, unspecified; E03.9 Hypothyroidism, unspecified; F43.10 Post-traumatic stress disorder, unspecified; F31.9 Bipolar disorder, unspecified; F17.210 Nicotine dependence, cigarettes, uncomplicated; F14.10 Cocaine abuse, uncomplicated; F12.10 Cannabis abuse, uncomplicated; G89.29 Other chronic pain; F41.9 Anxiety disorder, unspecified; E66.9 Obesity, unspecified; R77.8 Other specified abnormalities of plasma proteins; R94.5 Abnormal results of liver function studies; Z86.19 Personal history of other infectious and parasitic diseases; Z90.49 Acquired absence of other specified parts of digestive tract; Z90.710 Acquired absence of both cervix and uterus; Z88.8 Allergy status to other drugs, medicaments and biological substances; Z68.30 Body mass index [BMI] 30.0-30.9, adult
CPT/HCPCS: 36415; 71045; 80048; 80053; 80076; 82550; 82728; 83615; 84484; 85025; 85060; 85379; 86140; 87040; J1100; J1650; J7050

== ENCOUNTER 2020-05-21 17:39 | Inpatient (IN) | payer MEDICARE, MEDICAID ==
[~2020-05-21 17:39] MED LIST: Iopamidol-370 76% 500 ML 1 ML ONE
[2020-05-21] MEDS ORDERED: cefTRIAXone\\ROCEPHIN 2 GM VIAL ONE (18:13)
[2020-05-21 18:41] LABS: #Eosinphils 0.1 thou/uL (0.0-0.7); #Lymphocytes 2.8 thou/uL (1.20-3.40); #Monocytes 0.5 thou/uL (0.11-0.59); #Neutrophils 4.3 thou/uL (1.40-6.50); %Basophils 0.6 % (0.0-1.0); %Eosinophils 0.8 % (0.0-10.0); %Monocytes 6.4 % (0.0-10.0); %Neutrophils 56.3 % (42.0-75.0); Hemoglobin 13.8 g/dL (12.0-16.0); Mean Corpuscular HGB CONC 32.1 g/dL (32.0-36.0); Mean Corpuscular Hemoglobin 33.3 pg (27.0-31.0); Platelet Count 482 thou/uL (130-400); Red Blood Cell (RBC) Count 4.15 mill/uL (4.20-5.40); White Blood Cell (WBC) Count 7.7 thou/uL (4.8-10.8)
[2020-05-21 18:51] LABS: INR-International Normal Ratio 0.9; PTT 30.9 sec (22.9-36.1); Prothrombin Time 12.3 sec (12.0-14.7)
[2020-05-21 18:52] LABS: D-Dimer Test 1.05 *mcg/mL (0.27-0.43)
[2020-05-21 18:53] LABS: Bilirubin Negative (Negative); Blood, Urine Negative (Negative); Clarity Clear (Clear); Glucose, Urine (Dipstick) Normal (Negative); Ketone, Urine Negative (Negative); Leukocyte Negative Leu/uL (Negative); Nitrite Negative (Negative); Protein, Urine (Dipstick) Negative (Neg-Trace); Specific Gravity, Urine 1.016 (1.002-1.036); Urobilinogen Normal mg/dL (Less than 2); pH, Urine 5.5 (5.0-9.0)
--- NOTE | 2020-05-21 19:02 | RAD ---
EXAM: CHEST ONE VIEW HISTORY: Shortness of breath. Altered mental status. COMPARISON: 05/01/2020 FINDINGS: The cardiac silhouette and pulmonary vasculature are within normal limits. Increased interstitial opa cities are seen throughout the lungs bilaterally again with greater patchy parenchymal opacities at the left lung base. Again noted are emphysematous changes within the lungs bilaterally. Postoperative changes right humerus are partially imaged. IMPRESSION: 1. Chronic lung changes with suggestion of superimposed pneumonia at the left lung base. Follow-up to resolution is recommended.
[2020-05-21 19:09] LABS: ALT (SGPT) 8 U/L (8-55); AST (SGOT) 20 U/L (5-34); Albumin 3.2 g/dL (3.4-4.8); Alkaline Phosphatase 71 U/L (40-110); Anion Gap 19 mmol/L (10-20); BUN (Urea Nitrogen) 11 mg/dL (9.8-20.1); Bilirubin, Total 0.3 mg/dL (0.2-1.2); Calc. Creatinine Clearance 0 mL/min (70-130); Calcium 9.5 mg/dL (7.8-10.44); Carbon Dioxide 30 mmol/L (23-31); Chloride 97 mmol/L (98-107); Globulin 4.5 g/dL (2.4-3.5); Glucose 95 mg/dL (80-115); Lipase 19 U/L (8-78); Potassium 4.5 mmol/L (3.5-5.1); Protein, Total 7.7 g/dL (5.8-8.1); Sodium 141 mmol/L (136-145)
[2020-05-21] MEDS ORDERED: Azithromycin 500 MG VIAL ONE (19:15)
[2020-05-21 20:10] LABS: SARS-CoV-2 NAA Rapid Test Not Detected (NotDetected)
--- NOTE | 2020-05-21 20:42 | CT ---
CT OF BRAIN PERFORMED WITHOUT CONTRAST ENHANCEMENT: 05/21/20 HISTORY: Altered mental status. Generalized ventricular and sulcal prominence. There is no signs of intracerebral hemorrhage or extra -axial fluid collections. The mastoid air cells and visualized sinuses are clear. No change since the 03/24/20 exam. IMPRESSION: No acute intracranial abnormalities. POS: [facility] [place]
--- NOTE | 2020-05-21 20:53 | CT ---
CT ANGIO OF CHEST PERFORMED WITH INTRAVENOUS CONTRAST ENHANCEMENT WITH 3D RECONSTRUCTIONS: 05/21/20 HISTORY: Hypoxia. COMPARISON: Chest x-ray examinations of 05/21/20 and 05/01/20. There is severe emphysematous lung changes. There is interstitial fibrotic changes present. There is some infiltrative type changes in the right upper lobe with some ground glass opacities in this freedom on but not typical for COVID pneumonia. Bibasilar lung changes are compatible with some bibasilar inf iltrate. Changes are slightly more confluent in the left base. There is bronchiectatic changes presen t. The thoracic aorta is normal in caliber. There is fair pulmonary artery opacification. There is no CT evidence for pulmonary embolus. Visualized liver parenchyma shows no focal abnormalities. IMPRESSION: 1. Severe emphysematous lung changes. Interstitial fibrotic lung changes are superimposed on shayna e patchy lung changes seen in both lung wilkinson, most pronounced in the right upper lobe and both lung bases. This would suggest coexistent infiltrate. 2. No CT evidence for pulmonary embolus. POS: [facility]
--- NOTE | 2020-05-21 21:27 | PDOC.HHP ---
Hospitalist HPI SOB History of Present Illness: This is a 69-year-old female patient with a history of hypothyroidism, hepatitis B, vitamin D deficiency and recently was [facility] in from a jail account of shortness of breath AMS and hypoxia. Of note she was diagnosed with pneumonia due to Covid admitted here and discharged on 04/24/2020. According to EMS she was saturating in the 70s however improved with nasal cannula initially but however required CPAP with significant improvement. She was later downgraded to 4 L nasal cannula but had to go back on the facemask due to worsening hypoxia. On arrival BP was 120/59, pulse 78, respiratory rate 24 and temperature was 97.8. His labs showed WBC 7.7, hemoglobin 13.8 and platelets 482. Chemistry was generally unremarkable. Troponin was negative and BNP was 15.3. Lactic acid was elevated at 3.6. Covid test was negative CT head was negative for any acute intracranial abnormalities. CTA done on account of elevated D-dimer at 1.0 showed severe emphysematous lung disease, interstitial fibrotic lung changes superimposed on some patchy lung changes c.'s was however most pronounced in the right upper lobe and bases. No pulmonary embolism was noted. She received 30 mils per KG IV fluids and was started on azithromycin and ceftriaxone for sepsis possibly secondary to pneumonia. Hospitalist team was consulted for admission. Allergies/Adverse Reactions: Allergy/AdvReac Type Severity Reaction Status Date / Time lithium [[place]] Allergy Intermediate Verified 04/12/20 23:13 Home Medications: Medication Instructions Recorded Confirmed Type ALPRAZolam [Xanax] 1 mg PO TID 03/04/13 04/13/20 History FLUoxetine HCl [Prozac] 60 mg PO DAILY 03/04/13 04/13/20 History Levothyroxine Sodium [Synthroid] 75 mcg PO DAILY 03/04/13 04/13/20 History Acetaminophen [Tylenol Extra 1,000 mg PO Q6HR PRN 04/13/20 04/13/20 History Strength] Aripiprazole [Abilify] 10 mg PO DAILY 04/13/20 04/13/20 History Ascorbic Acid [Vitamin C] 1,000 mg PO DAILY 04/13/20 04/13/20 History Atorvastatin Calcium [Lipitor] 20 mg PO HS 04/13/20 04/13/20 History Cholecalciferol (Vitamin D3) 5,000 units PO DAILY 04/13/20 04/13/20 History [Vitamin D3] Divalproex Sodium DR [Depakote] 500 mg PO HS 04/13/20 04/13/20 History Fish Oil 1,000 mg PO DAILY 04/13/20 04/13/20 History Loratadine [Claritin] 10 mg PO HS 04/13/20 04/13/20 History Magnesium Hydroxide [Milk Of 30 ml PO DAILY PRN 04/13/20 04/13/20 History Magnesium] Ondansetron HCl [Zofran] 4 mg PO Q6HR PRN 04/13/20 04/13/20 History Zinc Acetate [Galzin] 50 mg PO DAILY 04/13/20 04/13/20 History guaiFENesin/Dextromethorphan 10 ml PO Q8HR PRN 04/13/20 04/13/20 History [Guaifenesin DM Syrup] Aspirin [Aspirin EC] 325 mg PO DAILY #7 tablet. 04/24/20 Rx Nicotine [Nicoderm CQ] 21 mg TD Q24HR patch 04/24/20 Rx Past History: PMHx:Hepatitis B, UTI, hyperlipidemia, hypothyroidism, Covid infection PSHx: Skull surgery, Bartholin cyst, hysterectomy, section, cholecystectomy FHx: None of significance Social: Lives with family. History of cocaine use as well as marijuana. Current tobacco usage. Hospitalist HPI ROS Constitutional: reports: weakness, malaise. denies: fever, chills, sweats Respiratory: reports: cough, dry, shortness of breath, SOB with excertion. denies: hemoptysis Cardiovascular: denies: chest pain, palpitations, orthopnea, paroxysmal noc. dyspnea Gastrointestinal: denies: nausea, vomiting, abdominal pain, diarrhea Genitourinary: denies: dysuria, frequency, incontinence Neurological: denies: weakness, numbness, incoordination, change in speech All other systems reviewed; all pertinent +/- noted in HPI/Subj Hospitalist Exam General Appearance: awake alert General - other findings: In mild respiratory distress Eye: PERRL, anicteric sclera Heart: RRR, no murmur, no gallops Respiratory - other findings: Coarse breath sounds bilaterally. Scattered wheezes Gastrointestinal: soft, non-tender, non-distended, normal bowel sounds Extremities: no cyanosis, no clubbing, no edema Neurological: cranial nerve grossly intact, no focal deficits Psychiatric: normal affect, normal behavior, A&O x 3 Hospitalist Results Result Diagrams: 05/21/20 17:57 05/21/20 17:57 Lab results: Laboratory Last Values WBC 7.7 thou/uL (4.8-10.8) 05/21/20 17:57 RBC 4.15 mill/uL (4.20-5.40) L 05/21/20 17:57 Hgb 13.8 g/dL (12.0-16.0) 05/21/20 17:57 Hct 43.0 % (36.0-47.0) 05/21/20 17:57 MCV 104.0 fL (78.0-98.0) H 05/21/20 17:57 MCH 33.3 pg (27.0-31.0) H 05/21/20 17:57 MCHC 32.1 g/dL (32.0-36.0) 05/21/20 17:57 RDW 13.0 % (11.5-14.5) 05/21/20 17:57 Plt Count 482 thou/uL (130-400) H 05/21/20 17:57 MPV 6.0 fL (7.4-10.4) L 05/21/20 17:57 Neutrophils % 56.3 % (42.0-75.0) 05/21/20 17:57 Lymphocytes % 36.0 % (21.0-51.0) 05/21/20 17:57 Monocytes % 6.4 % (0.0-10.0) 05/21/20 17:57 Eosinophils % 0.8 % (0.0-10.0) 05/21/20 17:57 Basophils % 0.6 % (0.0-1.0) 05/21/20 17:57 Neutrophils # 4.3 thou/uL (1.40-6.50) 05/21/20 17:57 Lymphocytes # 2.8 thou/uL (1.20-3.40) 05/21/20 17:57 Monocytes # 0.5 thou/uL (0.11-0.59) 05/21/20 17:57 Eosinophils # 0.1 thou/uL (0.0-0.7) 05/21/20 17:57 Basophils # 0.0 thou/uL (0.0-0.2) 05/21/20 17:57 PT 12.3 sec (12.0-14.7) 05/21/20 17:57 INR 0.9 05/21/20 17:57 APTT 30.9 sec (22.9-36.1) 05/21/20 17:57 D-Dimer 1.05 *mcg/mL (0.27-0.43) H 05/21/20 17:57 Sodium 141 mmol/L (136-145) 05/21/20 17:57 Potassium 4.5 mmol/L (3.5-5.1) 05/21/20 17:57 Chloride 97 mmol/L (98-107) L 05/21/20 17:57 Carbon Dioxide 30 mmol/L (23-31) 05/21/20 17:57 Anion Gap 19 mmol/L (10-20) 05/21/20 17:57 BUN 11 mg/dL (9.8-20.1) 05/21/20 17:57 Creatinine 1.05 mg/dL (0.6-1.1) 05/21/20 17:57 Estimated GFR (MDRD) 52 05/21/20 17:57 Glucose 95 mg/dL (80-115) 05/21/20 17:57 Lactic Acid 3.6 mmol/L (0.5-2.2) H 05/21/20 17:57 Calcium 9.5 mg/dL (7.8-10.44) 05/21/20 17:57 Magnesium 2.0 mg/dL (1.6-2.6) 05/21/20 17:57 Total Bilirubin 0.3 mg/dL (0.2-1.2) 05/21/20 17:57 AST 20 U/L (5-34) 05/21/20 17:57 ALT 8 U/L (8-55) 05/21/20 17:57 Alkaline Phosphatase 71 U/L (40-110) 05/21/20 17:57 Troponin I Less than 0.010 ng/mL (< 0.028) 05/21/20 17:57 B-Natriuretic Peptide 15.3 pg/mL (0-100) 05/21/20 18:34 Serum Total Protein 7.7 g/dL (5.8-8.1) 05/21/20 17:57 Albumin 3.2 g/dL (3.4-4.8) L 05/21/20 17:57 Globulin 4.5 g/dL (2.4-3.5) H 05/21/20 17:57 Albumin/Globulin Ratio 0.7 g/dL (1.2-2.2) L 05/21/20 17:57 Lipase 19 U/L (8-78) 05/21/20 17:57 Urine Color Light-Yellow (Yellow) 05/21/20 18:34 Urine Clarity Clear (Clear) 05/21/20 18:34 Urine pH 5.5 (5.0-9.0) 05/21/20 18:34 Ur Specific [place] 1.016 (1.002-1.036) 05/21/20 18:34 Urine Protein Negative mg/dL (Neg-Trace) 05/21/20 18:34 Urine Glucose (UA) Normal mg/dL (Negative) 05/21/20 18:34 Urine Ketones Negative mg/dL (Negative) 05/21/20 18:34 Urine Blood Negative (Negative) 05/21/20 18:34 Urine Nitrite Negative (Negative) 05/21/20 18:34 Urine Bilirubin Negative (Negative) 05/21/20 18:34 Urine Urobilinogen Normal mg/dL (Less than 2) 05/21/20 18:34 Ur Leukocyte Esterase Negative Vince/uL (Negative) 05/21/20 18:34 Influenza A RNA INAAT Not Detected (NotDetected) 05/21/20 18:55 Influenza B RNA INAAT Not Detected (NotDetected) 05/21/20 18:55 SARS-CoV-2 Rap RNA(RT-PCR) Not Detected (NotDetected) 05/21/20 18:55 Hospitalist H&P A/P Plan: This is a 69-year-old female patient with a history of hepatitis B, hyperlipidemia, recent Covid infection who presents with worsening cough shortness of breath concerning for possible pneumonia or COPD exacerbation. Acute hypoxic respiratory failure Possibly due to COPD exacerbation, pneumonia, lung fibrosis due to Covid Currently on oxygen therapy Titrate oxygen as needed Consider pulmonology consult in a.m. Sepsis Patient has Tachypnea and tachycardia with lactic acidosis and AMS. Possibly of respiratory origin Received azithromycin ceftriaxone in ED We will continue on cefepime and doxycycline due to recent hospitalization. She received 30 mils per KG IV fluids Trend lactate Acute encephalopathy Appears to have resolved Possibly sepsis/hypoxia We will monitor COPD exacerbation Patient has emphysema on CT scan We will start duo nebs She received steroids aeratedwe will continue On doxycycline and cefepime for pneumonia Oxygen therapy as needed. Pneumonia She has bilateral infiltrates concerning for infection We will continue cefepime and doxycycline Close monitoring Pulmonary fibrosis Fibrotic changes on CT scan We will monitor Consider pulmonology evaluation. Recent Covid infection We will monitor VT prophylaxisLovenox
[2020-05-22] MEDS ORDERED: Cefepime 2 GM VIAL ONE (00:33)
[2020-05-22] MEDS: Cefepime 2 GM in Sodium Chloride 0.9% 100 ML IVPB SCH ×3 (00:38→20:56)
[2020-05-22] MEDS: Sodium Chloride 0.9% 1,000 ML IV SCH ×4 (03:04→23:05)
[2020-05-22 03:40] LABS: Lactic Acid 4.8 mmol/L (0.5-2.2)
[2020-05-22 06:48] LABS: #Lymphocytes 1.7 thou/uL (1.20-3.40); #Monocytes 0.2 thou/uL (0.11-0.59); #Neutrophils 5.3 thou/uL (1.40-6.50); %Basophils 0.5 % (0.0-1.0); %Eosinophils 0.2 % (0.0-10.0); %Lymphocytes 23.7 % (21.0-51.0); %Monocytes 2.8 % (0.0-10.0); Hemoglobin 11.9 g/dL (12.0-16.0); Mean Corpuscular HGB CONC 31.9 g/dL (32.0-36.0); Mean Corpuscular Hemoglobin 33.7 pg (27.0-31.0); Mean Platelet Volume 6.1 fL (7.4-10.4); Platelet Count 386 thou/uL (130-400); RBC Distribution Width 12.6 % (11.5-14.5); Red Blood Cell (RBC) Count 3.52 mill/uL (4.20-5.40); White Blood Cell (WBC) Count 7.2 thou/uL (4.8-10.8)
[2020-05-22 06:58] LABS: Anion Gap 17 mmol/L (10-20); BUN (Urea Nitrogen) 11 mg/dL (9.8-20.1); Calc. Creatinine Clearance 0 mL/min (70-130); Calcium 8.3 mg/dL (7.8-10.44); Carbon Dioxide 24 mmol/L (23-31); Chloride 104 mmol/L (98-107); Glucose 118 mg/dL (80-115); Potassium 4.6 mmol/L (3.5-5.1); Sodium 140 mmol/L (136-145)
[2020-05-22 07:09] LABS: Lactic Acid 4.6 mmol/L (0.5-2.2)
[2020-05-22 07:48] LABS: MDiff Complete? YES; Macrocytosis SLIGHT = 6-15 cells (100X) (0-5/hpf); Polychromasia SLIGHT = 2-3 cells (100X) (0-2/hpf)
[2020-05-22] MEDS ORDERED: Doxycycline 100 MG in Syringe 0 ML IVPB SCH (09:00)
[2020-05-22] MEDS: Enoxaparin Sodium 40 MG/0.4 ML SYRINGE SC SCH (09:30)
[2020-05-22] MEDS: methylPREDNISolone Sod Succ 40 MG VIAL IVP SCH (09:30)
[2020-05-22] MEDS ORDERED: methylPREDNISolone Sod Succ 40 MG VIAL ONE (09:45)
[2020-05-22] MEDS ORDERED: Enoxaparin Sodium 40 MG/0.4 ML SYRINGE ONE (09:45)
--- NOTE | 2020-05-22 09:45 | RAD ---
PORTABLE CHEST: Date: 05/22/2020 INDICATION: Hypoxia. COMPARISON: 05/21/2020. CTA chest 05/21/2020. FINDINGS: The opacification in the left lung base is unchanged from the CT of 05/21/2020, consistent with chron ic change, atelectasis, and infiltrate. Hazy opacity in the right lung base is also unchanged consist ent with chronic changes and atelectasis. See yesterday's CTA chest for better definition of the lung findings. IMPRESSION: No interval change from yesterday. POS: AGW
[2020-05-22] MEDS ORDERED: Furosemide 40 MG/4 ML VIAL SLOW IVP SCH (11:30)
[2020-05-22] MEDS ORDERED: Furosemide 40 MG/4 ML VIAL ONE (11:45)
--- NOTE | 2020-05-22 15:25 | PDOC.HOSPP ---
- Subjective Encounter Date: 05/22/20 Encounter Time: 07:00 Subjective: Patient seen for follow-up regarding acute hypoxic respiratory failure. Reports cough and shortness of breath. - Objective Vital Signs & Weight: Vital Signs (12 hours) Temp Pulse Resp BP Pulse Ox 05/22/20 14:13 84 20 94 L 05/22/20 13:49 92 L 05/22/20 13:31 97.3 F L 83 24 H 107/60 93 L 05/22/20 10:09 79 21 H 96 05/22/20 07:00 62 19 97 Weight Weight 171 lb 1.6 oz Result Diagrams: 05/22/20 06:38 05/22/20 06:38 Additional Labs: Labs and MAR reviewed by id Hospitalist ROS - Review of Systems Respiratory: reports: cough, shortness of breath, SOB with excertion, sputum Cardiovascular: denies: chest pain, palpitations, orthopnea, paroxysmal noc. dyspnea, edema, light headedness Gastrointestinal: denies: nausea, vomiting, abdominal pain, diarrhea, constipation, melena, hematochezia - Medication Medications: Active Medications Generic Name Dose Route Start Last Admin Trade Name Freq PRN Reason Stop Dose Admin Albuterol/Ipratropium 3 ml 05/21/20 22:30 05/22/20 14:13 Ipratropium/Albuterol Sulfate 3 Ml Neb NEB 3 ml [id number] PALMA Administration Enoxaparin Sodium 40 mg 05/22/20 09:00 05/22/20 09:30 Enoxaparin Sodium 40 Mg/0.4 Ml Syringe SC 40 mg 0900 PALMA Administration Cefepime HCl 2 gm/ Sodium 100 mls @ 200 mls/hr 05/21/20 22:00 05/22/20 11:02 Chloride IVPB 100 mls 1000,2200 PALMA Administration Doxycycline Hyclate 100 mg/ 100 mls @ 100 mls/hr 05/21/20 23:00 05/22/20 14:02 Sodium Chloride IVPB 100 mls 1100,2300 PALMA Administration Sodium Chloride 1,000 mls @ 150 mls/hr 05/22/20 03:00 05/22/20 11:02 Normal Saline 0.9% IV Not Given .Q6H40M PALMA Methylprednisolone Sodium Succinate 40 mg 05/22/20 09:00 05/22/20 09:30 Methylprednisolone Sod Succ 40 Mg Vial IVP 40 mg DAILY PALMA Administration Sodium Chloride 10 ml 05/22/20 09:00 05/22/20 09:30 Flush - Normal Saline 10 Ml Syringe IVF 10 ml Q12HR PALMA Administration Hospitalist Exam Vitals: Vital Signs (12 hours) Temp Pulse Resp BP Pulse Ox 05/22/20 14:13 84 20 94 L 05/22/20 13:49 92 L 05/22/20 13:31 97.3 F L 83 24 H 107/60 93 L 05/22/20 10:09 79 21 H 96 05/22/20 07:00 62 19 97 Weight Weight 171 lb 1.6 oz General Appearance: awake alert Eye: anicteric sclera ENT: moist mucosa Neck: supple Heart: RRR Respiratory: rales, rhonchi Gastrointestinal: soft, non-tender Skin: no rashes Psychiatric: normal affect Hosp A/P - Plan Acute hypoxic respiratory failure Secondary to COPD exacerbation and pneumonia Patient on high flow oxygen. Sepsis Likely secondary to pneumonia. continue on cefepime and doxycycline COPD exacerbation Continue oxygen, steroids, bronchodilators and antibiotics. Pneumonia Continue cefepime and doxycycline Pulmonary fibrosis Fibrotic changes on CT scan Recent Covid infection Acute encephalopathy resolved
[2020-05-22] MEDS ORDERED: Hyaluronidase, Human Recomb. 150 UNIT/ML VIAL IJ SCH (17:00)
[2020-05-22] MEDS ORDERED: ALPRAZolam 1 MG TAB PO SCH ×2 (21:15→22:45)
[2020-05-23] MEDS: Sodium Chloride 0.9% 1,000 ML IV SCH ×3 (09:26→20:33)
[2020-05-23] MEDS: Enoxaparin Sodium 40 MG/0.4 ML SYRINGE SC SCH (09:27)
[2020-05-23] MEDS: Cefepime 2 GM in Sodium Chloride 0.9% 100 ML IVPB SCH ×2 (09:28→20:34)
[2020-05-23] MEDS: methylPREDNISolone Sod Succ 40 MG VIAL IVP SCH (09:28)
[2020-05-23] MEDS ORDERED: Nicotine 21 MG PATCH TD SCH (18:30)
[2020-05-23] MEDS ORDERED: Divalproex Sodium 125 mg Sprinkle Capsule PO PRN (19:04)
--- NOTE | 2020-05-23 19:13 | PDOC.HOSPP ---
- Subjective Encounter Date: 05/23/20 Encounter Time: 12:30 Subjective: Patient seen for follow-up regarding hypoxic respiratory failure. Sleepy but arousable, denies chest pain. - Objective Vital Signs & Weight: Vital Signs (12 hours) Temp Pulse Resp BP Pulse Ox 05/23/20 18:59 92 L 05/23/20 18:57 20 96 05/23/20 15:43 98.5 F 62 18 110/55 L 91 L 05/23/20 14:31 65 20 97 05/23/20 11:50 98.8 F 67 18 116/60 92 L 05/23/20 10:02 65 23 H 05/23/20 07:48 98.5 F 64 16 111/57 L 94 L Weight Weight 171 lb 1.6 oz I&O: 05/22/20 05/23/20 05/24/20 06:59 06:59 06:59 Intake Total 2600 1320 Output Total 1100 1050 Balance 1500 270 Result Diagrams: 05/22/20 06:38 05/22/20 06:38 Additional Labs: I reviewed patient's labs and [facility] Hospitalist ROS - Review of Systems Respiratory: reports: cough, dry, SOB with excertion. denies: shortness of breath, hemoptysis, pleuritic pain, sputum, wheezing Cardiovascular: denies: chest pain, palpitations, orthopnea, paroxysmal noc. dyspnea, edema, light headedness - Medication Medications: Active Medications Generic Name Dose Route Start Last Admin Trade Name Freq PRN Reason Stop Dose Admin Albuterol/Ipratropium 3 ml 05/21/20 22:30 05/23/20 18:57 Ipratropium/Albuterol Sulfate 3 Ml Neb NEB 3 ml [id number] PALMA Administration Enoxaparin Sodium 40 mg 05/22/20 09:00 05/23/20 09:27 Enoxaparin Sodium 40 Mg/0.4 Ml Syringe SC 40 mg 0900 PALMA Administration Cefepime HCl 2 gm/ Sodium 100 mls @ 200 mls/hr 05/21/20 22:00 05/23/20 09:28 Chloride IVPB 100 mls 1000,2200 PALMA Administration Doxycycline Hyclate 100 mg/ 100 mls @ 100 mls/hr 05/21/20 23:00 05/23/20 10:44 Sodium Chloride IVPB 100 mls 1100,2300 PALMA Administration Sodium Chloride 1,000 mls @ 150 mls/hr 05/22/20 03:00 05/23/20 11:30 Normal Saline 0.9% IV Not Given .Q6H40M [facility] Methylprednisolone Sodium Succinate 40 mg 05/22/20 09:00 05/23/20 09:28 Methylprednisolone Sod Succ 40 Mg Vial IVP 40 mg DAILY PALMA Administration Sodium Chloride 10 ml 05/22/20 09:00 05/23/20 09:28 Flush - Normal Saline 10 Ml Syringe IVF 10 ml Q12HR PALMA Administration Hospitalist Exam Vitals: Vital Signs (12 hours) Temp Pulse Resp BP Pulse Ox 05/23/20 18:59 92 L 05/23/20 18:57 20 96 05/23/20 15:43 98.5 F 62 18 110/55 L 91 L 05/23/20 14:31 65 20 97 05/23/20 11:50 98.8 F 67 18 116/60 92 L 05/23/20 10:02 65 23 H 05/23/20 07:48 98.5 F 64 16 111/57 L 94 L Weight Weight 171 lb 1.6 oz General Appearance: awake alert Eye: anicteric sclera ENT: moist mucosa Neck: supple Heart: RRR Respiratory: CTAB Gastrointestinal: soft Skin: no rashes Psychiatric: normal affect, normal behavior Hosp A/P - Plan Acute hypoxic respiratory failure Patient on high flow oxygen. Sepsis continue cefepime and doxycycline COPD exacerbation Continue oxygen, steroids, bronchodilators and antibiotics. Pneumonia Patient to continue with cefepime and doxycycline Pulmonary fibrosis Fibrotic changes on CT scan Recent Covid infection Acute encephalopathy resolved
[2020-05-23] MEDS: Atorvastatin Calcium 20 MG TAB PO SCH (20:33)
[2020-05-24] MEDS: Sodium Chloride 0.9% 1,000 ML IV SCH ×5 (03:58→23:58)
[2020-05-24] MEDS: Levothyroxine Sodium 75 MCG TAB PO SCH (05:22)
[2020-05-24] MEDS: FLUoxetine HCl 20 MG CAP PO SCH (09:17)
[2020-05-24] MEDS: Cholecalciferol 1,000 UNITS (25 MCG) TAB PO SCH (09:17)
[2020-05-24] MEDS: Fish Oil 1,000 MG CAP PO SCH (09:18)
[2020-05-24] MEDS: Aripiprazole 10 MG TAB PO SCH (09:18)
[2020-05-24] MEDS: ALPRAZolam 1 MG TAB PO SCH ×3 (09:18→21:40)
[2020-05-24] MEDS: Furosemide 20 MG TAB PO SCH (09:18)
[2020-05-24] MEDS: Nicotine 21 MG PATCH TD SCH (09:19)
[2020-05-24] MEDS: Enoxaparin Sodium 40 MG/0.4 ML SYRINGE SC SCH (09:19)
[2020-05-24] MEDS: Cefepime 2 GM in Sodium Chloride 0.9% 100 ML IVPB SCH ×2 (09:20→21:42)
[2020-05-24] MEDS: methylPREDNISolone Sod Succ 40 MG VIAL IVP SCH (09:22)
--- NOTE | 2020-05-24 17:57 | PDOC.HOSPP ---
- Subjective Encounter Date: 05/24/20 Encounter Time: 11:30 Subjective: Patient seen for follow-up regarding hypoxic respiratory failure. Sleepy but arousable, denies chest pain. - Objective Vital Signs & Weight: Vital Signs (12 hours) Temp Pulse Resp BP Pulse Ox 05/24/20 15:24 97.5 F L 73 24 H 99/59 L 93 L 05/24/20 13:46 68 20 97 05/24/20 11:06 99.1 F 68 24 H 108/63 89 L 05/24/20 09:38 70 20 96 05/24/20 07:58 98 F 67 20 110/59 L 95 05/24/20 06:41 92 L Weight Weight 172 lb 12.8 oz I&O: 05/23/20 05/24/20 05/25/20 06:59 06:59 06:59 Intake Total 2600 2920 Output Total 1100 2250 Balance 1500 670 Result Diagrams: 05/22/20 06:38 05/22/20 06:38 Additional Labs: Labs and MAR reviewed by me EKG Reviewed by me: Yes (Telemetry shows normal sinus rhythm) Hospitalist ROS - Review of Systems Respiratory: reports: cough, dry, SOB with excertion Gastrointestinal: denies: nausea, vomiting, abdominal pain, diarrhea, consti pation, melena, hematochezia Genitourinary: denies: dysuria, frequency, incontinence, hematuria, retention - Medication Medications: Active Medications Generic Name Dose Route Start Last Admin Trade Name Freq PRN Reason Stop Dose Admin Albuterol/Ipratropium 3 ml 05/21/20 22:30 05/24/20 13:46 Ipratropium/Albuterol Sulfate 3 Ml Neb NEB 3 ml [id number] PALMA Administration Alprazolam 1 mg 05/24/20 09:00 05/24/20 15:33 Alprazolam 1 Mg Tab PO 1 mg TID PALMA Administration Aripiprazole 10 mg 05/24/20 09:00 05/24/20 09:18 Aripiprazole 10 Mg Tab PO 10 mg DAILY PALMA Administration Atorvastatin Calcium 20 mg 05/23/20 21:00 05/23/20 20:33 Atorvastatin Calcium 20 Mg Tab PO 20 mg HS PALMA Administration Cholecalciferol 5,000 units 05/24/20 09:00 05/24/20 09:17 Cholecalciferol 1,000 Units (25 Mcg) Tab PO 5,000 units DAILY PALMA Administration Enoxaparin Sodium 40 mg 05/22/20 09:00 05/24/20 09:19 Enoxaparin Sodium 40 Mg/0.4 Ml Syringe SC 40 mg 0900 PALMA Administration Fish Oil 1,000 mg 05/24/20 09:00 05/24/20 09:18 Fish Oil 1,000 Mg Cap PO 1,000 mg DAILY PALMA Administration Fluoxetine HCl 60 mg 05/24/20 09:00 05/24/20 09:17 Fluoxetine Hcl 20 Mg Cap PO 60 mg DAILY PALMA Administration Furosemide 20 mg 05/24/20 09:00 05/24/20 09:18 Furosemide 20 Mg Tab PO 20 mg DAILY PALMA Administration Cefepime HCl 2 gm/ Sodium 100 mls @ 200 mls/hr 05/21/20 22:00 05/24/20 09:20 Chloride IVPB 100 mls 1000,2200 PALMA Administration Doxycycline Hyclate 100 mg/ 100 mls @ 100 mls/hr 05/21/20 23:00 05/24/20 10:59 Sodium Chloride IVPB 100 mls 1100,2300 PALMA Administration Sodium Chloride 1,000 mls @ 150 mls/hr 05/22/20 03:00 05/24/20 15:34 Normal Saline 0.9% IV Not Given .Q6H40M PALMA Levothyroxine Sodium 75 mcg 05/24/20 06:00 05/24/20 05:22 Levothyroxine Sodium 75 Mcg Tab PO 75 mcg 0600 PALMA Administration Methylprednisolone Sodium Succinate 40 mg 05/22/20 09:00 05/24/20 09:22 Methylprednisolone Sod Succ 40 Mg Vial IVP 40 mg DAILY PALMA Administration Nicotine 21 mg 05/24/20 10:00 05/24/20 09:19 Nicotine 21 Mg Patch TD 21 mg Q24HR PALMA Administration Sodium Chloride 10 ml 05/22/20 09:00 05/24/20 09:22 Flush - Normal Saline 10 Ml Syringe IVF 10 ml Q12HR PALMA Administration Hospitalist Exam Vitals: Vital Signs (12 hours) Temp Pulse Resp BP Pulse Ox 05/24/20 15:24 97.5 F L 73 24 H 99/59 L 93 L 05/24/20 13:46 68 20 97 05/24/20 11:06 99.1 F 68 24 H 108/63 89 L 05/24/20 09:38 70 20 96 05/24/20 07:58 98 F 67 20 110/59 L 95 05/24/20 06:41 92 L Weight Weight 172 lb 12.8 oz General Appearance: awake alert Eye: anicteric sclera ENT: normocephalic atraumatic, no oropharyngeal lesions Neck: supple Heart: RRR Respiratory: rales, rhonchi Gastrointestinal: soft, non-tender Extremities: no cyanosis Skin: no rashes Neurological: cranial nerve grossly intact Musculoskeletal: normal tone Psychiatric: lethargic Hosp A/P - Plan Acute hypoxic respiratory failure Patient continues to be on high flow oxygen. Sepsis Patient is on cefepime and doxycycline COPD exacerbation Patient is on oxygen, steroids, bronchodilators and antibiotics. Pneumonia Patient to continue with cefepime and doxycycline Pulmonary fibrosis Fibrotic changes on CT scan Recent Covid infection Acute encephalopathy resolved
[2020-05-24] MEDS: Atorvastatin Calcium 20 MG TAB PO SCH (21:40)
[2020-05-25] MEDS: Levothyroxine Sodium 75 MCG TAB PO SCH (05:22)
[2020-05-25] MEDS: ALPRAZolam 1 MG TAB PO SCH ×3 (08:53→20:47)
[2020-05-25] MEDS: Cholecalciferol 1,000 UNITS (25 MCG) TAB PO SCH (08:53)
[2020-05-25] MEDS: Furosemide 20 MG TAB PO SCH (08:54)
[2020-05-25] MEDS: FLUoxetine HCl 20 MG CAP PO SCH (08:54)
[2020-05-25] MEDS: Aripiprazole 10 MG TAB PO SCH (08:55)
[2020-05-25] MEDS: Fish Oil 1,000 MG CAP PO SCH (08:55)
[2020-05-25] MEDS: Enoxaparin Sodium 40 MG/0.4 ML SYRINGE SC SCH (08:55)
[2020-05-25] MEDS: methylPREDNISolone Sod Succ 40 MG VIAL IVP SCH (08:56)
[2020-05-25] MEDS: Sodium Chloride 0.9% 1,000 ML IV SCH ×2 (08:59→17:15)
[2020-05-25] MEDS: Cefepime 2 GM in Sodium Chloride 0.9% 100 ML IVPB SCH ×2 (09:19→21:00)
[2020-05-25] MEDS: Nicotine 21 MG PATCH TD SCH (09:20)
--- NOTE | 2020-05-25 18:04 | PDOC.HOSPP ---
- Subjective Encounter Date: 05/25/20 Encounter Time: 09:30 Subjective: Patient seen for follow-up due to respiratory failure. Reports that she feels okay. - Objective Vital Signs & Weight: Vital Signs (12 hours) Temp Pulse Resp BP Pulse Ox 05/25/20 16:00 98.7 F 74 20 110/65 95 05/25/20 14:13 73 96/57 L 92 L 05/25/20 13:53 69 20 92 L 05/25/20 12:06 97.4 F L 68 24 H 92/51 L 95 05/25/20 11:03 71 18 91 L 05/25/20 07:26 97.5 F L 66 20 120/66 91 L 05/25/20 07:05 92 L 05/25/20 07:04 61 18 Weight Weight 173 lb 8 oz I&O: 05/24/20 05/25/20 05/26/20 06:59 06:59 06:59 Intake Total 2920 3550 2480 Output Total 2250 3950 2100 Balance 670 -400 380 Result Diagrams: 05/22/20 06:38 05/22/20 06:38 Additional Labs: I reviewed patient's labs and MAR EKG Reviewed by me: Yes (Normal sinus rhythm on telemetry) Hospitalist ROS - Review of Systems Respiratory: reports: cough, dry. denies: shortness of breath, hemoptysis, SOB with excertion, pleuritic pain, sputum, wheezing Gastrointestinal: denies: nausea, vomiting, abdominal pain, diarrhea, constipation, melena, hematochezia Genitourinary: denies: dysuria, frequency, incontinence, hematuria, retention - Medication Medications: Active Medications Generic Name Dose Route Start Last Admin Trade Name Freq PRN Reason Stop Dose Admin Albuterol/Ipratropium 3 ml 05/21/20 22:30 05/25/20 13:53 Ipratropium/Albuterol Sulfate 3 Ml Neb NEB 3 ml [id number] PALMA Administration Alprazolam 1 mg 05/24/20 09:00 05/25/20 14:14 Alprazolam 1 Mg Tab PO 1 mg TID PALMA Administration Aripiprazole 10 mg 05/24/20 09:00 05/25/20 08:55 Aripiprazole 10 Mg Tab PO 10 mg DAILY PALMA Administration Atorvastatin Calcium 20 mg 05/23/20 21:00 05/24/20 21:40 Atorvastatin Calcium 20 Mg Tab PO 20 mg HS PALMA Administration Cholecalciferol 5,000 units 05/24/20 09:00 05/25/20 08:53 Cholecalciferol 1,000 Units (25 Mcg) Tab PO 5,000 units DAILY PALMA Administration Enoxaparin Sodium 40 mg 05/22/20 09:00 05/25/20 08:55 Enoxaparin Sodium 40 Mg/0.4 Ml Syringe SC 40 mg 0900 PALMA Administration Fish Oil 1,000 mg 05/24/20 09:00 05/25/20 08:55 Fish Oil 1,000 Mg Cap PO 1,000 mg DAILY PALMA Administration Fluoxetine HCl 60 mg 05/24/20 09:00 05/25/20 08:54 Fluoxetine Hcl 20 Mg Cap PO 60 mg DAILY PALMA Administration Furosemide 20 mg 05/24/20 09:00 05/25/20 08:54 Furosemide 20 Mg Tab PO 20 mg DAILY PALMA Administration Cefepime HCl 2 gm/ Sodium 100 mls @ 200 mls/hr 05/21/20 22:00 05/25/20 09:19 Chloride IVPB 100 mls 1000,2200 PALMA Administration Doxycycline Hyclate 100 mg/ 100 mls @ 100 mls/hr 05/21/20 23:00 05/25/20 12:10 Sodium Chloride IVPB 100 mls 1100,2300 PALMA Administration Sodium Chloride 1,000 mls @ 150 mls/hr 05/22/20 03:00 05/25/20 17:15 Normal Saline 0.9% IV 1,000 mls .Q6H40M PALMA Administration Levothyroxine Sodium 75 mcg 05/24/20 06:00 05/25/20 05:22 Levothyroxine Sodium 75 Mcg Tab PO 75 mcg 0600 PALMA Administration Methylprednisolone Sodium Succinate 40 mg 05/22/20 09:00 05/25/20 08:56 Methylprednisolone Sod Succ 40 Mg Vial IVP 40 mg DAILY PALMA Administration Nicotine 21 mg 05/24/20 10:00 05/25/20 09:20 Nicotine 21 Mg Patch TD 21 mg Q24HR PALMA Administration Sodium Chloride 10 ml 05/22/20 09:00 05/25/20 08:56 Flush - Normal Saline 10 Ml Syringe IVF 10 ml Q12HR PALAM Administration Hospitalist Exam Vitals: Vital Signs (12 hours) Temp Pulse Resp BP Pulse Ox 02/08/21 16:00 98.7 F 74 20 110/65 95 05/25/20 14:13 73 96/57 L 92 L 05/25/20 13:53 69 20 92 L 05/25/20 12:06 97.4 F L 68 24 H 92/51 L 95 05/25/20 11:03 71 18 91 L 05/25/20 07:26 97.5 F L 66 20 120/66 91 L 05/25/20 07:05 92 L 05/25/20 07:04 61 18 Weight Weight 173 lb 8 oz General Appearance: awake alert Eye: anicteric sclera ENT: no oropharyngeal lesions, moist mucosa Neck: supple Heart: RRR Respiratory: rhonchi Gastrointestinal: soft, non-tender, normal bowel sounds Skin: no rashes Psychiatric: normal affect, normal behavior Hosp A/P - Plan Acute hypoxic respiratory failure Patient continues to be on high flow oxygen. Trying to wean her oxygen requirements down. Sepsis Continue cefepime and doxycycline COPD exacerbation Continue oxygen, steroids, bronchodilators and antibiotics. Pneumonia continue with cefepime and doxycycline Pulmonary fibrosis Fibrotic changes on CT scan Recent Covid infection Acute encephalopathy resolved
[2020-05-25] MEDS: Atorvastatin Calcium 20 MG TAB PO SCH (20:47)
[2020-05-26] MEDS: Sodium Chloride 0.9% 1,000 ML IV SCH ×4 (03:51→23:10)
[2020-05-26] MEDS: Levothyroxine Sodium 75 MCG TAB PO SCH (06:18)
[2020-05-26] MEDS: ALPRAZolam 1 MG TAB PO SCH ×3 (09:48→20:59)
[2020-05-26] MEDS: Cholecalciferol 1,000 UNITS (25 MCG) TAB PO SCH (09:49)
[2020-05-26] MEDS: Aripiprazole 10 MG TAB PO SCH (09:49)
[2020-05-26] MEDS: Enoxaparin Sodium 40 MG/0.4 ML SYRINGE SC SCH (09:50)
[2020-05-26] MEDS: Furosemide 20 MG TAB PO SCH (09:52)
[2020-05-26] MEDS: FLUoxetine HCl 20 MG CAP PO SCH (09:52)
[2020-05-26] MEDS: Fish Oil 1,000 MG CAP PO SCH (09:53)
[2020-05-26] MEDS: Cefepime 2 GM in Sodium Chloride 0.9% 100 ML IVPB SCH ×2 (09:53→20:54)
[2020-05-26] MEDS: methylPREDNISolone Sod Succ 40 MG VIAL IVP SCH (09:54)
[2020-05-26 12:03] LABS: Anion Gap 17 mmol/L (10-20); BUN (Urea Nitrogen) 13 mg/dL (9.8-20.1); Calc. Creatinine Clearance 91 mL/min (70-130); Calcium 8.8 mg/dL (7.8-10.44); Carbon Dioxide 20 mmol/L (23-31); Chloride 106 mmol/L (98-107); Glucose 81 mg/dL (80-115); Potassium 3.8 mmol/L (3.5-5.1); Sodium 139 mmol/L (136-145)
[2020-05-26] MEDS: Nicotine 21 MG PATCH TD SCH (12:08)
[2020-05-26 13:16] LABS: #Basophils 0.1 thou/uL (0.0-0.2); #Eosinphils 0.1 thou/uL (0.0-0.7); #Lymphocytes 1.8 thou/uL (1.20-3.40); #Monocytes 0.7 thou/uL (0.11-0.59); #Neutrophils 8.4 thou/uL (1.40-6.50); %Basophils 0.8 % (0.0-1.0); %Eosinophils 0.5 % (0.0-10.0); %Lymphocytes 16.6 % (21.0-51.0); %Monocytes 6.1 % (0.0-10.0); Hemoglobin 12.1 g/dL (12.0-16.0); Mean Corpuscular Hemoglobin 33.6 pg (27.0-31.0); Mean Platelet Volume 6.4 fL (7.4-10.4); Platelet Count 340 thou/uL (130-400); RBC Distribution Width 12.9 % (11.5-14.5); Red Blood Cell (RBC) Count 3.59 mill/uL (4.20-5.40)
--- NOTE | 2020-05-26 18:15 | PDOC.HOSPP ---
- Subjective Encounter Date: 05/26/20 Encounter Time: 11:30 Subjective: Patient seen in follow-up for acute hypoxic respiratory failure. She continues to be on high flow oxygen. She denies any complaints. - Objective Vital Signs & Weight: Vital Signs (12 hours) Temp Pulse Resp BP BP Pulse Ox 05/26/20 15:38 98.4 F 64 20 118/62 92 L 05/26/20 11:28 94 L 05/26/20 11:25 66 20 94 L 05/26/20 11:20 98.8 F 68 20 123/65 85 L 05/26/20 08:15 67 22 H 92 L 05/26/20 07:30 99.1 F 67 18 120/63 88 L Weight Weight 171 lb 9.6 oz I&O: 05/25/20 05/26/20 05/27/20 06:59 06:59 06:59 Intake Total 3550 4500 Output Total 3950 3200 Balance -400 1300 Result Diagrams: 05/26/20 12:48 05/26/20 11:20 Additional Labs: Labs and MAR reviewed by sd Hospitalist ROS - Review of Systems Respiratory: reports: cough, dry, SOB with excertion Cardiovascular: denies: chest pain, palpitations, orthopnea, paroxysmal noc. dyspnea, edema, light headedness Gastrointestinal: denies: nausea, vomiting, abdominal pain, diarrhea, constipation, melena, hematochezia - Medication Medications: Active Medications Generic Name Dose Route Start Last Admin Trade Name Freq PRN Reason Stop Dose Admin Albuterol/Ipratropium 3 ml 05/21/20 22:30 05/26/20 15:35 Ipratropium/Albuterol Sulfate 3 Ml Neb NEB Not Given Q0PN-PR PALMA Alprazolam 1 mg 05/24/20 09:00 05/26/20 16:14 Alprazolam 1 Mg Tab PO 1 mg TID PALMA Administration Aripiprazole 10 mg 05/24/20 09:00 05/26/20 09:49 Aripiprazole 10 Mg Tab PO 10 mg DAILY PALMA Administration Atorvastatin Calcium 20 mg 05/23/20 21:00 05/25/20 20:47 Atorvastatin Calcium 20 Mg Tab PO 20 mg HS PALMA Administration Cholecalciferol 5,000 units 05/24/20 09:00 05/26/20 09:49 Cholecalciferol 1,000 Units (25 Mcg) Tab PO 5,000 units DAILY PALMA Administration Enoxaparin Sodium 40 mg 05/22/20 09:00 05/26/20 09:50 Enoxaparin Sodium 40 Mg/0.4 Ml Syringe SC 40 mg 0900 PALMA Administration Fish Oil 1,000 mg 05/24/20 09:00 05/26/20 09:53 Fish Oil 1,000 Mg Cap PO 1,000 mg DAILY PALMA Administration Fluoxetine HCl 60 mg 05/24/20 09:00 05/26/20 09:52 Fluoxetine Hcl 20 Mg Cap PO 60 mg DAILY PALMA Administration Furosemide 20 mg 05/24/20 09:00 05/26/20 09:52 Furosemide 20 Mg Tab PO 20 mg DAILY PALMA Administration Cefepime HCl 2 gm/ Sodium 100 mls @ 200 mls/hr 05/21/20 22:00 05/26/20 09:53 Chloride IVPB 100 mls 1000,2200 PALMA Administration Doxycycline Hyclate 100 mg/ 100 mls @ 100 mls/hr 05/21/20 23:00 05/26/20 12:08 Sodium Chloride IVPB 100 mls 1100,2300 PALMA Administration Sodium Chloride 1,000 mls @ 150 mls/hr 05/22/20 03:00 05/26/20 15:35 Normal Saline 0.9% IV Not Given .Q6H40M PALMA Levothyroxine Sodium 75 mcg 05/24/20 06:00 05/26/20 06:18 Levothyroxine Sodium 75 Mcg Tab PO 75 mcg 0600 PALMA Administration Methylprednisolone Sodium Succinate 40 mg 05/22/20 09:00 05/26/20 09:54 Methylprednisolone Sod Succ 40 Mg Vial IVP 40 mg DAILY PALMA Administration Nicotine 21 mg 05/24/20 10:00 05/26/20 12:08 Nicotine 21 Mg Patch TD 21 mg Q24HR PALMA Administration Sodium Chloride 10 ml 05/22/20 09:00 05/26/20 09:56 Flush - Normal Saline 10 Ml Syringe IVF 10 ml Q12HR PALMA Administration Hospitalist Exam Vitals: Vital Signs (12 hours) Temp Pulse Resp BP BP Pulse Ox 05/26/20 15:38 98.4 F 64 20 118/62 92 L 05/26/20 11:28 94 L 05/26/20 11:25 66 20 94 L 02/09/21 11:20 98.8 F 68 20 123/65 85 L 05/26/20 08:15 67 22 H 92 L 05/26/20 07:30 99.1 F 67 18 120/63 88 L Weight Weight 171 lb 9.6 oz General Appearance: awake alert Eye: anicteric sclera ENT: moist mucosa Neck: supple Heart: RRR Respiratory: rhonchi Gastrointestinal: soft Skin: no lesions, no rashes Psychiatric: normal affect Hosp A/P - Plan Acute hypoxic respiratory failure Continue high flow oxygen. Sepsis Patient is on cefepime and doxycycline COPD exacerbation Treat with oxygen, steroids, bronchodilators and antibiotics. Pneumonia continue with cefepime and doxycycline Pulmonary fibrosis Fibrotic changes on CT scan Recent Covid infection Acute encephalopathy resolved
[2020-05-26] MEDS: Atorvastatin Calcium 20 MG TAB PO SCH (20:59)
[2020-05-26] MEDS ORDERED: Melatonin 3 MG TAB PO SCH (22:45)
[2020-05-27 05:53] LABS: #Basophils 0.1 thou/uL (0.0-0.2); #Eosinphils 0.1 thou/uL (0.0-0.7); #Lymphocytes 4.6 thou/uL (1.20-3.40); #Monocytes 1.2 thou/uL (0.11-0.59); #Neutrophils 5.1 thou/uL (1.40-6.50); %Basophils 1.2 % (0.0-1.0); %Eosinophils 0.8 % (0.0-10.0); %Lymphocytes 41.8 % (21.0-51.0); %Monocytes 10.5 % (0.0-10.0); %Neutrophils 45.7 % (42.0-75.0); Hemoglobin 10.2 g/dL (12.0-16.0); Mean Corpuscular Hemoglobin 31.7 pg (27.0-31.0); Mean Platelet Volume 6.8 fL (7.4-10.4); Platelet Count 301 thou/uL (130-400); RBC Distribution Width 13.1 % (11.5-14.5); Red Blood Cell (RBC) Count 3.21 mill/uL (4.20-5.40); White Blood Cell (WBC) Count 11.1 thou/uL (4.8-10.8)
[2020-05-27 06:16] LABS: Anion Gap 10 mmol/L (10-20); BUN (Urea Nitrogen) 16 mg/dL (9.8-20.1); Calc. Creatinine Clearance 91 mL/min (70-130); Calcium 8.4 mg/dL (7.8-10.44); Carbon Dioxide 28 mmol/L (23-31); Chloride 103 mmol/L (98-107); Glucose 74 mg/dL (80-115); Potassium 3.7 mmol/L (3.5-5.1); Sodium 137 mmol/L (136-145)
[2020-05-27] MEDS: Sodium Chloride 0.9% 1,000 ML IV SCH ×3 (06:23→14:52)
[2020-05-27] MEDS: Levothyroxine Sodium 75 MCG TAB PO SCH (06:25)
[2020-05-27] MEDS: Fish Oil 1,000 MG CAP PO SCH (08:45)
[2020-05-27] MEDS: Cholecalciferol 1,000 UNITS (25 MCG) TAB PO SCH (08:46)
[2020-05-27] MEDS: Aripiprazole 10 MG TAB PO SCH (08:48)
[2020-05-27] MEDS: Furosemide 20 MG TAB PO SCH (08:48)
[2020-05-27] MEDS: FLUoxetine HCl 20 MG CAP PO SCH (08:48)
[2020-05-27] MEDS: ALPRAZolam 1 MG TAB PO SCH ×3 (08:48→20:27)
[2020-05-27] MEDS: Cefepime 2 GM in Sodium Chloride 0.9% 100 ML IVPB SCH ×2 (08:49→20:54)
[2020-05-27] MEDS: methylPREDNISolone Sod Succ 40 MG VIAL IVP SCH (08:49)
[2020-05-27] MEDS: Enoxaparin Sodium 40 MG/0.4 ML SYRINGE SC SCH (08:49)
[2020-05-27] MEDS: Nicotine 21 MG PATCH TD SCH (08:50)
--- NOTE | 2020-05-27 17:09 | PDOC.HOSPP ---
- Subjective Encounter Date: 05/27/20 Encounter Time: 11:30 Subjective: Patient seen in follow-up for hypoxic respiratory failure. Denies chest pain. - Objective Vital Signs & Weight: Vital Signs (12 hours) Temp Pulse Resp BP BP Pulse Ox 05/27/20 16:00 97.1 F L 65 18 103/69 90 L 05/27/20 15:04 65 20 90 L 05/27/20 11:18 98.0 F 67 18 100/63 91 L 05/27/20 11:10 67 20 89 L 05/27/20 07:32 97.2 F L 64 18 120/80 93 L 05/27/20 07:19 90 L 05/27/20 07:18 55 L 22 H 90 L Weight Weight 174 lb 8 oz I&O: 05/26/20 05/27/20 05/28/20 06:59 06:59 06:59 Intake Total 4500 Output Total 3200 800 Balance 1300 -800 Result Diagrams: 05/27/20 05:36 05/27/20 05:36 Additional Labs: I reviewed patient's labs and MAR Hospitalist ROS - Review of Systems Genitourinary: denies: dysuria, frequency, incontinence, hematuria, retention Musculoskeletal: denies: neck pain, shoulder pain, arm pain, back pain, hand pain, leg pain, foot pain - Medication Medications: Active Medications Generic Name Dose Route Start Last Admin Trade Name Freq PRN Reason Stop Dose Admin Albuterol/Ipratropium 3 ml 05/21/20 22:30 05/27/20 15:04 Ipratropium/Albuterol Sulfate 3 Ml Neb NEB 3 ml [id number] PALMA Administration Alprazolam 1 mg 05/24/20 09:00 05/27/20 14:52 Alprazolam 1 Mg Tab PO 1 mg TID PALMA Administration Aripiprazole 10 mg 05/24/20 09:00 05/27/20 08:48 Aripiprazole 10 Mg Tab PO 10 mg DAILY PALMA Administration Atorvastatin Calcium 20 mg 05/23/20 21:00 05/26/20 20:59 Atorvastatin Calcium 20 Mg Tab PO 20 mg HS PALMA Administration Cholecalciferol 5,000 units 05/24/20 09:00 05/27/20 08:46 Cholecalciferol 1,000 Units (25 Mcg) Tab PO 5,000 units DAILY PALMA Administration Enoxaparin Sodium 40 mg 05/22/20 09:00 05/27/20 08:49 Enoxaparin Sodium 40 Mg/0.4 Ml Syringe SC 40 mg 0900 PALMA Administration Fish Oil 1,000 mg 05/24/20 09:00 05/27/20 08:45 Fish Oil 1,000 Mg Cap PO 1,000 mg DAILY PALMA Administration Fluoxetine HCl 60 mg 05/24/20 09:00 05/27/20 08:48 Fluoxetine Hcl 20 Mg Cap PO 60 mg DAILY PALMA Administration Furosemide 20 mg 05/24/20 09:00 05/27/20 08:48 Furosemide 20 Mg Tab PO 20 mg DAILY PALMA Administration Cefepime HCl 2 gm/ Sodium 100 mls @ 200 mls/hr 05/21/20 22:00 05/27/20 08:49 Chloride IVPB 100 mls 1000,2200 PALMA Administration Doxycycline Hyclate 100 mg/ 100 mls @ 100 mls/hr 05/21/20 23:00 05/27/20 08:52 Sodium Chloride IVPB 100 mls 1100,2300 PALMA Administration Sodium Chloride 1,000 mls @ 150 mls/hr 05/22/20 03:00 05/27/20 14:52 Normal Saline 0.9% IV 1,000 mls .Q6H40M PALMA Administration Levothyroxine Sodium 75 mcg 05/24/20 06:00 05/27/20 06:25 Levothyroxine Sodium 75 Mcg Tab PO 75 mcg 0600 PALMA Administration Methylprednisolone Sodium Succinate 40 mg 05/22/20 09:00 05/27/20 08:49 Methylprednisolone Sod Succ 40 Mg Vial IVP 40 mg DAILY PALMA Administration Nicotine 21 mg 05/24/20 10:00 05/27/20 08:50 Nicotine 21 Mg Patch TD 21 mg Q24HR PALMA Administration Sodium Chloride 10 ml 05/22/20 09:00 05/27/20 08:49 Flush - Normal Saline 10 Ml Syringe IVF 10 ml Q12HR PALMA Administration Hospitalist Exam Vitals: Vital Signs (12 hours) Temp Pulse Resp BP BP Pulse Ox 05/27/20 16:00 97.1 F L 65 18 103/69 90 L 05/27/20 15:04 65 20 90 L 05/27/20 11:18 98.0 F 67 18 100/63 91 L 05/27/20 11:10 67 20 89 L 05/27/20 07:32 97.2 F L 64 18 120/80 93 L 05/27/20 07:19 90 L 05/27/20 07:18 55 L 22 H 90 L Weight Weight 174 lb 8 oz General Appearance: awake alert Eye: anicteric sclera ENT: moist mucosa Neck: supple Respiratory: rhonchi Extremities: no cyanosis Skin: no rashes Psychiatric: normal affect Hosp A/P - Plan Acute hypoxic respiratory failure Patient continues to be on high flow oxygen. Sepsis Continue cefepime and doxycycline COPD exacerbation Continue oxygen, steroids, bronchodilators and antibiotics. Pneumonia Patient is on cefepime and doxycycline Pulmonary fibrosis Fibrotic changes on CT scan Recent Covid infection Acute encephalopathy resolved
[2020-05-27] MEDS: Atorvastatin Calcium 20 MG TAB PO SCH (20:27)
[2020-05-28] MEDS: Sodium Chloride 0.9% 1,000 ML IV SCH ×4 (00:54→16:00)
[2020-05-28] MEDS: Levothyroxine Sodium 75 MCG TAB PO SCH (05:16)
[2020-05-28 06:20] LABS: Anion Gap 9 mmol/L (10-20); BUN (Urea Nitrogen) 12 mg/dL (9.8-20.1); Calc. Creatinine Clearance 98 mL/min (70-130); Calcium 8.5 mg/dL (7.8-10.44); Carbon Dioxide 27 mmol/L (23-31); Chloride 104 mmol/L (98-107); Glucose 73 mg/dL (80-115); Potassium 3.3 mmol/L (3.5-5.1); Sodium 137 mmol/L (136-145)
[2020-05-28 06:23] LABS: Band 3 % (5-11); Hemoglobin 10.9 g/dL (12.0-16.0); Lymphocytes 52 % (21-51); MDiff Complete? YES; Mean Corpuscular Hemoglobin 35.3 pg (27.0-31.0); Mean Platelet Volume 6.1 fL (7.4-10.4); Metamyelocyte 1 % (0-0); Monocytes 6 % (0-10); Myelocyte 2 % (0-0); Neutrophil 36 % (42-75); Platelet Count 302 thou/uL (130-400); Platelet Morphology Comment Appears Adequate; Red Blood Cell (RBC) Count 3.09 mill/uL (4.20-5.40); White Blood Cell (WBC) Count 13.7 thou/uL (4.8-10.8)
[2020-05-28] MEDS: FLUoxetine HCl 20 MG CAP PO SCH (08:52)
[2020-05-28] MEDS: Aripiprazole 10 MG TAB PO SCH (08:53)
[2020-05-28] MEDS: ALPRAZolam 1 MG TAB PO SCH ×3 (08:53→20:06)
[2020-05-28] MEDS: Fish Oil 1,000 MG CAP PO SCH (08:53)
[2020-05-28] MEDS: Cefepime 2 GM in Sodium Chloride 0.9% 100 ML IVPB SCH ×3 (08:53→22:41)
[2020-05-28] MEDS: Furosemide 20 MG TAB PO SCH (08:53)
[2020-05-28] MEDS: Enoxaparin Sodium 40 MG/0.4 ML SYRINGE SC SCH (08:55)
[2020-05-28] MEDS: methylPREDNISolone Sod Succ 40 MG VIAL IVP SCH (08:55)
[2020-05-28] MEDS: Cholecalciferol 1,000 UNITS (25 MCG) TAB PO SCH (08:55)
[2020-05-28] MEDS: Nicotine 21 MG PATCH TD SCH (08:56)
--- NOTE | 2020-05-28 19:23 | PDOC.HOSPP ---
- Subjective Encounter Date: 05/28/20 Encounter Time: 12:30 Subjective: Patient seen in follow-up for respiratory failure. Appears tired, denies any new complaints. - Objective Vital Signs & Weight: Vital Signs (12 hours) Pulse Resp Pulse Ox 05/28/20 18:59 95 05/28/20 18:57 92 L 05/28/20 14:07 93 L 05/28/20 13:55 67 16 93 L 05/28/20 10:29 88 L 05/28/20 10:28 62 20 88 L Weight Weight 174 lb 8 oz I&O: 05/27/20 05/28/20 05/29/20 06:59 06:59 06:59 Intake Total 3950 2215 Output Total 800 2014 1949 Balance -800 1935 265 Result Diagrams: 05/28/20 05:49 05/28/20 05:49 Additional Labs: Labs and MAR reviewed by ar Hospitalist ROS - Review of Systems Respiratory: reports: SOB with excertion Genitourinary: denies: dysuria, frequency, incontinence, hematuria, retention Musculoskeletal: denies: neck pain, shoulder pain, arm pain, back pain, hand pain, leg pain, foot pain - Medication Medications: Active Medications Generic Name Dose Route Start Last Admin Trade Name Freq PRN Reason Stop Dose Admin Albuterol/Ipratropium 3 ml 05/21/20 22:30 05/28/20 18:57 Ipratropium/Albuterol Sulfate 3 Ml Neb NEB 3 ml [id number] PALMA Administration Alprazolam 1 mg 05/24/20 09:00 05/28/20 15:01 Alprazolam 1 Mg Tab PO 1 mg TID PALMA Administration Aripiprazole 10 mg 05/24/20 09:00 05/28/20 08:53 Aripiprazole 10 Mg Tab PO 10 mg DAILY PALMA Administration Atorvastatin Calcium 20 mg 05/23/20 21:00 05/27/20 20:27 Atorvastatin Calcium 20 Mg Tab PO 20 mg HS PALMA Administration Cholecalciferol 5,000 units 05/24/20 09:00 05/28/20 08:55 Cholecalciferol 1,000 Units (25 Mcg) Tab PO 5,000 units DAILY PALMA Administration Enoxaparin Sodium 40 mg 05/22/20 09:00 05/28/20 08:55 Enoxaparin Sodium 40 Mg/0.4 Ml Syringe SC 40 mg 0900 PALMA Administration Fish Oil 1,000 mg 05/24/20 09:00 05/28/20 08:53 Fish Oil 1,000 Mg Cap PO 1,000 mg DAILY PALMA Administration Fluoxetine HCl 60 mg 05/24/20 09:00 05/28/20 08:52 Fluoxetine Hcl 20 Mg Cap PO 60 mg DAILY PALMA Administration Furosemide 20 mg 05/24/20 09:00 05/28/20 08:53 Furosemide 20 Mg Tab PO 20 mg DAILY PALMA Administration Cefepime HCl 2 gm/ Sodium 100 mls @ 200 mls/hr 05/21/20 22:00 05/28/20 08:53 Chloride IVPB 100 mls 1000,2200 PALMA Administration Doxycycline Hyclate 100 mg/ 100 mls @ 100 mls/hr 05/21/20 23:00 05/28/20 16:00 Sodium Chloride IVPB 100 mls 1100,2300 PALMA Administration Sodium Chloride 1,000 mls @ 150 mls/hr 05/22/20 03:00 05/28/20 16:00 Normal Saline 0.9% IV 1,000 mls .Q6H40M PALMA Administration Levothyroxine Sodium 75 mcg 05/24/20 06:00 05/28/20 05:16 Levothyroxine Sodium 75 Mcg Tab PO 75 mcg 0600 PALMA Administration Methylprednisolone Sodium Succinate 40 mg 05/22/20 09:00 05/28/20 08:55 Methylprednisolone Sod Succ 40 Mg Vial IVP 40 mg DAILY PALMA Administration Nicotine 21 mg 05/24/20 10:00 05/28/20 08:56 Nicotine 21 Mg Patch TD 21 mg Q24HR PALMA Administration Sodium Chloride 10 ml 05/22/20 09:00 05/28/20 08:56 Flush - Normal Saline 10 Ml Syringe IVF 10 ml Q12HR PALMA Administration Hospitalist Exam Vitals: Vital Signs (12 hours) Pulse Resp Pulse Ox 05/28/20 18:59 95 05/28/20 18:57 92 L 05/28/20 14:07 93 L 05/28/20 13:55 67 16 93 L 05/28/20 10:29 88 L 05/28/20 10:28 62 20 88 L Weight Weight 174 lb 8 oz General Appearance: awake alert ENT: normocephalic atraumatic, moist mucosa Neck: supple Heart: RRR Respiratory: rales, rhonchi Gastrointestinal: soft Skin: no rashes Psychiatric: normal affect Hosp A/P - Plan Acute hypoxic respiratory failure Patient continues to be on high flow oxygen. Respiratory failure is secondary to pneumonia. Sepsis Patient is on cefepime and doxycycline COPD exacerbation Patient is on oxygen, steroids, bronchodilators and antibiotics. Pneumonia Patient is on cefepime and doxycycline Pulmonary fibrosis Fibrotic changes on CT scan Recent Covid infection Acute encephalopathy resolved
[2020-05-28] MEDS: Atorvastatin Calcium 20 MG TAB PO SCH (20:06)
[2020-05-29] MEDS: Sodium Chloride 0.9% 1,000 ML IV SCH (04:56)
[2020-05-29] MEDS ORDERED: Furosemide 40 MG/4 ML VIAL SLOW IVP SCH (05:45)
[2020-05-29 05:46] LABS: Anion Gap 10 mmol/L (10-20); BUN (Urea Nitrogen) 13 mg/dL (9.8-20.1); Calc. Creatinine Clearance 92 mL/min (70-130); Carbon Dioxide 28 mmol/L (23-31); Chloride 104 mmol/L (98-107); Glucose 73 mg/dL (80-115); Potassium 3.6 mmol/L (3.5-5.1); Sodium 138 mmol/L (136-145)
[2020-05-29] MEDS ORDERED: Furosemide 40 MG/4 ML VIAL ONE (05:50)
[2020-05-29] MEDS: Levothyroxine Sodium 75 MCG TAB PO SCH (06:04)
[2020-05-29 07:05] LABS: Hemoglobin 11.3 g/dL (12.0-16.0); Mean Corpuscular HGB CONC 33.2 g/dL (32.0-36.0); Mean Corpuscular Hemoglobin 34.7 pg (27.0-31.0); Mean Platelet Volume 6.5 fL (7.4-10.4); Platelet Count 323 thou/uL (130-400); RBC Distribution Width 13.2 % (11.5-14.5); Red Blood Cell (RBC) Count 3.27 mill/uL (4.20-5.40); White Blood Cell (WBC) Count 15.3 thou/uL (4.8-10.8)
--- NOTE | 2020-05-29 08:09 | RAD ---
EXAM: Single view of the chest HISTORY: Hypoxia COMPARISON: 05/22/2020 and CTA chest to 421 FINDINGS: Single view of the chest shows a normal sized cardiomediastinal silhouette. There are scatt ered mixed alveolar/interstitial opacities in the lungs likely secondary to Covid pneumonia. No acute osseous abnormality. IMPRESSION: Stable exam
[2020-05-29 09:05] LABS: Band 1 % (5-11); Eosinophils 4 % (0-10); Lymphocytes 37 % (21-51); MDiff Complete? YES; Monocytes 9 % (0-10); Neutrophil 41 % (42-75); RBC Morphology Normal; Reactive Lymphocytes 8 % (0-10)
[2020-05-29] MEDS: Aripiprazole 10 MG TAB PO SCH (10:41)
[2020-05-29] MEDS: methylPREDNISolone Sod Succ 40 MG VIAL IVP SCH (10:41)
[2020-05-29] MEDS: Cholecalciferol 1,000 UNITS (25 MCG) TAB PO SCH (10:41)
[2020-05-29] MEDS: Nicotine 21 MG PATCH TD SCH (10:41)
[2020-05-29] MEDS: Fish Oil 1,000 MG CAP PO SCH (10:42)
[2020-05-29] MEDS: FLUoxetine HCl 20 MG CAP PO SCH (10:42)
[2020-05-29] MEDS: Furosemide 20 MG TAB PO SCH (10:43)
[2020-05-29] MEDS: ALPRAZolam 1 MG TAB PO SCH ×3 (10:43→20:20)
[2020-05-29] MEDS: Cefepime 2 GM in Sodium Chloride 0.9% 100 ML IVPB SCH ×2 (11:23→22:11)
[2020-05-29] MEDS: Enoxaparin Sodium 40 MG/0.4 ML SYRINGE SC SCH (12:32)
--- NOTE | 2020-05-29 15:03 | PDOC.FMACP ---
Advance Care Planning - Note Participants: patient, palliative care Summary: Palliative care introduced Advanced Care Planning. The diagnosis, prognosis and goals of care were discussed. Appropriate forms and documentation to accomplish the goals of care were discussed. All questions were answered. Transition to [facility]AR Completed
[2020-05-29] MEDS: Atorvastatin Calcium 20 MG TAB PO SCH (20:20)
[2020-05-29] MEDS ORDERED: Morphine 2 MG/ML VIAL SLOW IVP PRN (21:05)
[2020-05-30 05:38] LABS: Hemoglobin 11.4 g/dL (12.0-16.0); Mean Corpuscular HGB CONC 32.7 g/dL (32.0-36.0); Mean Corpuscular Hemoglobin 33.4 pg (27.0-31.0); Mean Platelet Volume 6.5 fL (7.4-10.4); Platelet Count 366 thou/uL (130-400); RBC Distribution Width 13.3 % (11.5-14.5); Red Blood Cell (RBC) Count 3.41 mill/uL (4.20-5.40); White Blood Cell (WBC) Count 17.5 thou/uL (4.8-10.8)
[2020-05-30 05:39] LABS: Band 8 % (5-11); Lymphocytes 35 % (21-51); MDiff Complete? YES; Monocytes 11 % (0-10); Neutrophil 45 % (42-75); Reactive Lymphocytes 1 % (0-10)
[2020-05-30 06:01] LABS: Chloride 99 mmol/L (98-107); Sodium 137 mmol/L (136-145)
[2020-05-30 06:02] LABS: Calcium 9.1 mg/dL (7.8-10.44); Glucose 83 mg/dL (80-115)
[2020-05-30 06:04] LABS: Anion Gap 16 mmol/L (10-20); Carbon Dioxide 26 mmol/L (23-31)
[2020-05-30 06:06] LABS: Calc. Creatinine Clearance 91 mL/min (70-130)
[2020-05-30 06:07] LABS: BUN (Urea Nitrogen) 20 mg/dL (9.8-20.1)
[2020-05-30] MEDS: Nicotine 21 MG PATCH TD SCH (09:02)
[2020-05-30] MEDS: Enoxaparin Sodium 40 MG/0.4 ML SYRINGE SC SCH (09:02)
[2020-05-30] MEDS: ALPRAZolam 1 MG TAB PO SCH ×2 (09:05→14:20)
[2020-05-30] MEDS: Aripiprazole 10 MG TAB PO SCH (09:05)
[2020-05-30] MEDS: methylPREDNISolone Sod Succ 40 MG VIAL IVP SCH (09:06)
[2020-05-30] MEDS: Fish Oil 1,000 MG CAP PO SCH (09:06)
[2020-05-30] MEDS: Furosemide 20 MG TAB PO SCH (09:06)
[2020-05-30] MEDS: FLUoxetine HCl 20 MG CAP PO SCH (09:06)
[2020-05-30] MEDS: Cholecalciferol 1,000 UNITS (25 MCG) TAB PO SCH (09:06)
[2020-05-30] MEDS: Cefepime 2 GM in Sodium Chloride 0.9% 100 ML IVPB SCH ×2 (12:36→21:22)
--- NOTE | 2020-05-30 14:16 | PDOC.HOSPP ---
- Subjective Encounter Date: 05/29/20 Encounter Time: 20:00 Subjective: Pt seen for hypoxic respiratory failure. - Objective Vital Signs & Weight: Vital Signs (12 hours) Temp Pulse Resp BP BP Pulse Ox 05/30/20 14:11 77 05/30/20 14:09 72 27 H 93 L 05/30/20 11:17 98.5 F 75 22 H 110/56 L 92 L 05/30/20 10:29 86 45 H 88 L 05/30/20 10:00 67 22 H 110/56 L 91 L 05/30/20 08:00 88 L 05/30/20 07:24 62 05/30/20 07:23 68 27 H 90 L 05/30/20 07:20 98.1 F 60 20 115/67 90 L 05/30/20 06:00 58 L 17 110/54 L 87 L 05/30/20 04:00 96.5 F L 61 16 105/59 L 91 L 05/30/20 02:34 65 17 91 L 05/30/20 02:33 65 16 91 L Weight Weight 174 lb 8 oz I&O: 05/29/20 05/30/20 05/31/20 06:59 06:59 06:59 Intake Total 4215 240 Output Total 3450 Balance 765 240 Result Diagrams: 05/30/20 04:36 05/30/20 05:42 Additional Labs: Reviewed labs and [facility] Hospitalist ROS - Review of Systems Constitutional: reports: weakness. denies: fever, chills, sweats, malaise Respiratory: reports: shortness of breath Gastrointestinal: denies: nausea, vomiting, abdominal pain, diarrhea, constipation, melena, hematochezia - Medication Medications: Active Medications Generic Name Dose Route Start Last Admin Trade Name Freq PRN Reason Stop Dose Admin Albuterol/Ipratropium 3 ml 05/21/20 22:30 05/30/20 14:09 Ipratropium/Albuterol Sulfate 3 Ml Neb NEB 3 ml [id number] PALMA Administration Alprazolam 1 mg 05/24/20 09:00 05/30/20 09:05 Alprazolam 1 Mg Tab PO Not Given TID PALMA Aripiprazole 10 mg 05/24/20 09:00 05/30/20 09:05 Aripiprazole 10 Mg Tab PO Not Given DAILY PALMA Atorvastatin Calcium 20 mg 05/23/20 21:00 05/29/20 20:20 Atorvastatin Calcium 20 Mg Tab PO 20 mg HS PALMA Administration Cholecalciferol 5,000 units 05/24/20 09:00 05/30/20 09:06 Cholecalciferol 1,000 Units (25 Mcg) Tab PO Not Given DAILY PALMA Enoxaparin Sodium 40 mg 05/22/20 09:00 05/30/20 09:02 Enoxaparin Sodium 40 Mg/0.4 Ml Syringe SC 40 mg 0900 PALMA Administration Fish Oil 1,000 mg 05/24/20 09:00 05/30/20 09:06 Fish Oil 1,000 Mg Cap PO Not Given DAILY PALMA Fluoxetine HCl 60 mg 05/24/20 09:00 05/30/20 09:06 Fluoxetine Hcl 20 Mg Cap PO Not Given DAILY PALMA Furosemide 20 mg 05/24/20 09:00 05/30/20 09:06 Furosemide 20 Mg Tab PO Not Given DAILY PALMA Cefepime HCl 2 gm/ Sodium 100 mls @ 200 mls/hr 05/21/20 22:00 05/30/20 12:36 Chloride IVPB 100 mls 1000,2200 PALMA Administration Doxycycline Hyclate 100 mg/ 100 mls @ 100 mls/hr 05/21/20 23:00 05/29/20 12:31 Sodium Chloride IVPB 100 mls 1100,2300 PALMA Administration Levothyroxine Sodium 75 mcg 05/24/20 06:00 05/29/20 06:04 Levothyroxine Sodium 75 Mcg Tab PO 75 mcg 0600 PALMA Administration Methylprednisolone Sodium Succinate 40 mg 05/22/20 09:00 05/30/20 09:06 Methylprednisolone Sod Succ 40 Mg Vial IVP 40 mg DAILY PALMA Administration Morphine Sulfate 2 mg 05/29/20 21:05 05/29/20 21:52 Morphine 2 Mg/Ml Vial SLOW IVP 2 mg Q4H PRN Administration Pain Nicotine 21 mg 05/24/20 10:00 05/30/20 09:02 Nicotine 21 Mg Patch TD 21 mg Q24HR PALMA Administration Sodium Chloride 10 ml 05/22/20 09:00 05/30/20 09:26 Flush - Normal Saline 10 Ml Syringe IVF 10 ml Q12HR PALMA Administration Hospitalist Exam Vitals: Vital Signs (12 hours) Temp Pulse Resp BP BP Pulse Ox 05/30/20 14:11 77 05/30/20 14:09 72 27 H 93 L 05/30/20 11:17 98.5 F 75 22 H 110/56 L 92 L 05/30/20 10:29 86 45 H 88 L 05/30/20 10:00 67 22 H 110/56 L 91 L 05/30/20 08:00 88 L 05/30/20 07:24 62 05/30/20 07:23 68 27 H 90 L 05/30/20 07:20 98.1 F 60 20 115/67 90 L 05/30/20 06:00 58 L 17 110/54 L 87 L 05/30/20 04:00 96.5 F L 61 16 105/59 L 91 L 05/30/20 02:34 65 17 91 L 05/30/20 02:33 65 16 91 L Weight Weight 174 lb 8 oz General Appearance: awake alert Eye: anicteric sclera Neck: no thyromegaly Heart: RRR Respiratory: rales, rhonchi Gastrointestinal: soft, non-tender Skin: normal turgor Psychiatric: normal affect Hosp A/P - Plan Acute hypoxic respiratory failure Patient continues to be on high flow oxygen. Respiratory failure is secondary to pneumonia. Pt tried BiPAP but did not like it, back on high flow oxygen. Sepsis continue antibiotics COPD exacerbation continue oxygen, steroids, bronchodilators and antibiotics. Pneumonia Patient is on cefepime and doxycycline Pulmonary fibrosis Fibrotic changes on CT scan Recent Covid infection Acute encephalopathy resolved
--- NOTE | 2020-05-30 14:56 | PDOC.HOSPP ---
- Subjective Encounter Date: 05/30/20 Encounter Time: 12:00 Subjective: is sob, on bipap, spo2 around 90% no chest pain or palp moves her extremities is not eating much (no break from bipap) - Objective Vital Signs & Weight: Vital Signs (12 hours) Temp Pulse Resp BP BP Pulse Ox 05/30/20 14:11 77 05/30/20 14:09 72 27 H 93 L 05/30/20 14:00 72 111/55 L 05/30/20 11:17 98.5 F 75 22 H 110/56 L 92 L 05/30/20 10:29 86 45 H 88 L 05/30/20 10:00 67 22 H 110/56 L 91 L 05/30/20 08:00 88 L 05/30/20 07:24 62 05/30/20 07:23 68 27 H 90 L 05/30/20 07:20 98.1 F 60 20 115/67 90 L 05/30/20 06:00 58 L 17 110/54 L 87 L 05/30/20 04:00 96.5 F L 61 16 105/59 L 91 L Weight Weight 174 lb 8 oz I&O: 05/29/20 05/30/20 05/31/20 06:59 06:59 06:59 Intake Total 4215 240 Output Total 3450 Balance 765 240 Result Diagrams: 05/30/20 04:36 05/30/20 05:42 Hospitalist ROS - Medication Medications: Active Medications Generic Name Dose Route Start Last Admin Trade Name Freq PRN Reason Stop Dose Admin Albuterol/Ipratropium 3 ml 05/21/20 22:30 05/30/20 14:09 Ipratropium/Albuterol Sulfate 3 Ml Neb NEB 3 ml [id number] PALMA Administration Alprazolam 1 mg 05/24/20 09:00 05/30/20 14:20 Alprazolam 1 Mg Tab PO 1 mg TID PALMA Administration Aripiprazole 10 mg 05/24/20 09:00 05/30/20 09:05 Aripiprazole 10 Mg Tab PO Not Given DAILY PALMA Atorvastatin Calcium 20 mg 05/23/20 21:00 05/29/20 20:20 Atorvastatin Calcium 20 Mg Tab PO 20 mg HS PALMA Administration Cholecalciferol 5,000 units 05/24/20 09:00 05/30/20 09:06 Cholecalciferol 1,000 Units (25 Mcg) Tab PO Not Given DAILY [facility] Enoxaparin Sodium 40 mg 05/22/20 09:00 05/30/20 09:02 Enoxaparin Sodium 40 Mg/0.4 Ml Syringe SC 40 mg 0900 PALMA Administration Fish Oil 1,000 mg 05/24/20 09:00 05/30/20 09:06 Fish Oil 1,000 Mg Cap PO Not Given DAILY PALMA Fluoxetine HCl 60 mg 05/24/20 09:00 05/30/20 09:06 Fluoxetine Hcl 20 Mg Cap PO Not Given DAILY PALMA Furosemide 20 mg 05/24/20 09:00 05/30/20 09:06 Furosemide 20 Mg Tab PO Not Given DAILY PALMA Cefepime HCl 2 gm/ Sodium 100 mls @ 200 mls/hr 05/21/20 22:00 05/30/20 12:36 Chloride IVPB 100 mls 1000,2200 PALMA Administration Doxycycline Hyclate 100 mg/ 100 mls @ 100 mls/hr 05/21/20 23:00 05/30/20 14:43 Sodium Chloride IVPB 100 mls 1100,2300 PALMA Administration Levothyroxine Sodium 75 mcg 05/24/20 06:00 05/29/20 06:04 Levothyroxine Sodium 75 Mcg Tab PO 75 mcg 0600 PALMA Administration Methylprednisolone Sodium Succinate 40 mg 05/22/20 09:00 05/30/20 09:06 Methylprednisolone Sod Succ 40 Mg Vial IVP 40 mg DAILY PALMA Administration Morphine Sulfate 2 mg 05/29/20 21:05 05/29/20 21:52 Morphine 2 Mg/Ml Vial SLOW IVP 2 mg Q4H PRN Administration Pain Nicotine 21 mg 05/24/20 10:00 05/30/20 09:02 Nicotine 21 Mg Patch TD 21 mg Q24HR PALMA Administration Sodium Chloride 10 ml 05/22/20 09:00 05/30/20 09:26 Flush - Normal Saline 10 Ml Syringe IVF 10 ml Q12HR PALMA Administration Hospitalist Exam Vitals: Vital Signs (12 hours) Temp Pulse Resp BP BP Pulse Ox 05/30/20 14:11 77 05/30/20 14:09 72 27 H 93 L 05/30/20 14:00 72 111/55 L 05/30/20 11:17 98.5 F 75 22 H 110/56 L 92 L 05/30/20 10:29 86 45 H 88 L 05/30/20 10:00 67 22 H 110/56 L 91 L 05/30/20 08:00 88 L 05/30/20 07:24 62 05/30/20 07:23 68 27 H 90 L 05/30/20 07:20 98.1 F 60 20 115/67 90 L 05/30/20 06:00 58 L 17 110/54 L 87 L 05/30/20 04:00 96.5 F L 61 16 105/59 L 91 L Weight Weight 174 lb 8 oz General Appearance: awake alert, ill appearing Eye: PERRL, anicteric sclera ENT: no oropharyngeal lesions, dry oral mucosa Neck: supple, no JVD Heart: RRR, no murmur Respiratory: no wheezes, no rales, rhonchi Gastrointestinal: soft, non-tender, non-distended, normal bowel sounds Extremities: no cyanosis, no edema Neurological: cranial nerve grossly intact, no focal deficits Hosp A/P (1) Acute respiratory failure Code(s): J96.00 - ACUTE RESPIRATORY FAILURE, UNSP W HYPOXIA OR HYPERCAPNIA Status: Acute Qualifiers: Respiratory failure complication: hypoxia Qualified Code(s): J96.01 - Acute respiratory failure with hypoxia (2) COPD exacerbation Code(s): J44.1 - CHRONIC OBSTRUCTIVE PULMONARY DISEASE W (ACUTE) EXACERBATION Status: Acute (3) PNA (pneumonia) Code(s): J18.9 - PNEUMONIA, UNSPECIFIED ORGANISM Status: Acute Qualifiers: Pneumonia type: due to unspecified organism Laterality: bilateral (4) Hypothyroidism Code(s): E03.9 - HYPOTHYROIDISM, UNSPECIFIED Status: Chronic Qualifiers: Hypothyroidism type: acquired Qualified Code(s): E03.9 - Hypothyroidism, unspecified (5) Hepatitis B Status: Chronic Qualifiers: Viral hepatitis chronicity: chronic Hepatic coma status: without hepatic coma (6) Obesity (BMI 30.0-34.9) Code(s): E66.9 - OBESITY, UNSPECIFIED Status: Chronic (7) Mood disorder Code(s): F39 - UNSPECIFIED MOOD [AFFECTIVE] DISORDER Status: Chronic (8) Tobacco abuse Code(s): Z72.0 - TOBACCO USE Status: Chronic (9) Pneumonia due to COVID-19 virus Code(s): U07.1 - COVID-19; J12.89 - OTHER VIRAL PNEUMONIA Status: Acute - Plan was positive for covid 19 on 04/25/20, has underlying fibrosis due to lung involvement and current bacterial infection and copd exacerbation has finished full course of cefepime and doxy this admission currently on bipap needs to mobilize more to improve lung function and to come off bipap encourage po intake with breaks from bipap change xanax to prn, is on abilify, depakote 500mg daily, prozac 60mg daily continue lipitor, fish oil, duonebs, steroids, synthroid and nicotine tts spoke to sister and POA [phone], she wants her to be dnar, confirmed with patient. has 2 sons, one is not in contact with her, the other son Mr.Tommy Alas [phone] wants to be POA. is a resident of [facility] in [place] for atleast 5 years, has underlying psychiatric condition which put her in [place], ?bipolar or schizoaffective which is unclear, based on meds likely bipolar. prognosis guarded echo shows ef of 55%, mcv is 102.
[2020-05-30] MEDS: Ibuprofen 200 MG TAB PO PRN (17:37)
[2020-05-30] MEDS: Atorvastatin Calcium 20 MG TAB PO SCH (20:27)
[2020-05-30] MEDS: ALPRAZolam 1 MG TAB PO PRN (20:27)
--- NOTE | 2020-05-31 05:17 | PDOC.BPN ---
- Brief Progress Note Encounter Date: 05/31/20 Patient complains of chest pain. mild will check trop, ekg and chest xray prn nitro, aspirin
[2020-05-31] MEDS ORDERED: Aspirin 325 mg Enteric Coated Tablet PO SCH (05:30)
[2020-05-31] MEDS ORDERED: Nitroglycerin 2% Ointment 1 INCH/1 GM Packet TOP SCH (05:30)
[2020-05-31] MEDS: Levothyroxine Sodium 75 MCG TAB PO SCH (05:52)
[2020-05-31 06:14] LABS: Troponin I Less than 0.010 ng/mL (< 0.028)
--- NOTE | 2020-05-31 08:39 | RAD ---
Exam: Chest one view HISTORY:Hypoxia. Chest pain Comparison: 05/29/2020 FINDINGS: Cardiac silhouette: Normal Aorta: Unremarkable Pulmonary vessels: Normal Costophrenic angles: Clear LUNGS: Extensive fibrotic changes throughout the lung parenchyma. There is hyperinflation. Pneumothorax: None Osseous abnormalities: None IMPRESSION: Extensive fibrotic changes throughout the lung parenchyma. No significant interval change .
[2020-05-31] MEDS: Fish Oil 1,000 MG CAP PO SCH (08:59)
[2020-05-31] MEDS: Furosemide 20 MG TAB PO SCH (08:59)
[2020-05-31] MEDS: methylPREDNISolone Sod Succ 40 MG VIAL IVP SCH (08:59)
[2020-05-31] MEDS: Aripiprazole 10 MG TAB PO SCH (08:59)
[2020-05-31] MEDS: FLUoxetine HCl 20 MG CAP PO SCH (08:59)
[2020-05-31] MEDS: Cholecalciferol 1,000 UNITS (25 MCG) TAB PO SCH (09:00)
[2020-05-31] MEDS: Enoxaparin Sodium 40 MG/0.4 ML SYRINGE SC SCH (09:00)
[2020-05-31] MEDS: ALPRAZolam 1 MG TAB PO PRN ×2 (09:06→17:32)
[2020-05-31] MEDS: Cefepime 2 GM in Sodium Chloride 0.9% 100 ML IVPB SCH ×2 (11:12→23:52)
[2020-05-31] MEDS: Nicotine 21 MG PATCH TD SCH (11:35)
--- NOTE | 2020-05-31 12:04 | PDOC.HOSPP ---
- Subjective Encounter Date: 05/31/20 Encounter Time: 10:00 Subjective: is comfortable on high flow O2 this am has no chest pain or palp feels better - Objective Vital Signs & Weight: Vital Signs (12 hours) Temp Pulse Resp BP BP Pulse Ox 05/31/20 10:29 70 20 90 L 05/31/20 10:00 80 20 96/69 90 L 05/31/20 08:41 88 L 05/31/20 07:51 98.5 F 68 20 95/66 90 L 05/31/20 07:33 91 L 05/31/20 07:12 59 L 23 H 90 L 05/31/20 06:00 62 29 H 119/76 89 L 05/31/20 04:00 96.1 F L 63 23 H 82/53 L 90 L 05/31/20 02:31 90 L 05/31/20 02:30 62 05/31/20 02:28 62 19 90 L 05/31/20 02:00 63 23 H 85/60 L 91 L Weight Weight 174 lb 8 oz I&O: 05/30/20 05/31/20 06/01/20 06:59 06:59 06:59 Intake Total 240 560 Balance 240 560 Result Diagrams: 05/30/20 04:36 05/30/20 05:42 Hospitalist ROS - Medication Medications: Active Medications Generic Name Dose Route Start Last Admin Trade Name Freq PRN Reason Stop Dose Admin Albuterol/Ipratropium 3 ml 05/21/20 22:30 05/31/20 10:29 Ipratropium/Albuterol Sulfate 3 Ml Neb NEB 3 ml [id number] [facility] Administration Alprazolam 1 mg 05/30/20 14:58 05/31/20 09:06 Alprazolam 1 Mg Tab PO 1 mg TID PRN Administration anxiety Aripiprazole 10 mg 05/24/20 09:00 05/31/20 08:59 Aripiprazole 10 Mg Tab PO 10 mg DAILY [facility] Administration Atorvastatin Calcium 20 mg 05/23/20 21:00 05/30/20 20:27 Atorvastatin Calcium 20 Mg Tab PO 20 mg HS [facility] Administration Cholecalciferol 5,000 units 05/24/20 09:00 05/31/20 09:00 Cholecalciferol 1,000 Units (25 Mcg) Tab PO 5,000 units DAILY [facility] Administration Enoxaparin Sodium 40 mg 05/22/20 09:00 05/31/20 09:00 Enoxaparin Sodium 40 Mg/0.4 Ml Syringe SC 40 mg 0900 [facility] Administration Fish Oil 1,000 mg 05/24/20 09:00 05/31/20 08:59 Fish Oil 1,000 Mg Cap PO 1,000 mg DAILY [facility] Administration Fluoxetine HCl 60 mg 05/24/20 09:00 05/31/20 08:59 Fluoxetine Hcl 20 Mg Cap PO 60 mg DAILY [facility] Administration Furosemide 20 mg 05/24/20 09:00 05/31/20 08:59 Furosemide 20 Mg Tab PO 20 mg DAILY [facility] Administration Cefepime HCl 2 gm/ Sodium 100 mls @ 200 mls/hr 05/21/20 22:00 05/31/20 11:12 Chloride IVPB 100 mls 1000,2200 [facility] Administration Doxycycline Hyclate 100 mg/ 100 mls @ 100 mls/hr 05/21/20 23:00 05/31/20 11:13 Sodium Chloride IVPB 100 mls 1100,2300 [facility] Administration Ibuprofen 400 mg 05/30/20 17:10 05/30/20 17:37 Ibuprofen 200 Mg Tab PO 400 mg TIDPRN PRN Administration Pain Levothyroxine Sodium 75 mcg 05/24/20 06:00 05/31/20 05:52 Levothyroxine Sodium 75 Mcg Tab PO 75 mcg 0600 [facility] Administration Methylprednisolone Sodium Succinate 40 mg 05/22/20 09:00 05/31/20 08:59 Methylprednisolone Sod Succ 40 Mg Vial IVP 40 mg DAILY [facility] Administration Nicotine 21 mg 05/24/20 10:00 05/31/20 11:35 Nicotine 21 Mg Patch TD Not Given Q24HR [facility] Sodium Chloride 10 ml 05/22/20 09:00 05/31/20 09:00 Flush - Normal Saline 10 Ml Syringe IVF 10 ml Q12HR [facility] Administration Hospitalist Exam Vitals: Vital Signs (12 hours) Temp Pulse Resp BP BP Pulse Ox 05/31/20 10:29 70 20 90 L 05/31/20 10:00 80 20 96/69 90 L 05/31/20 08:41 88 L 05/31/20 07:51 98.5 F 68 20 95/66 90 L 05/31/20 07:33 91 L 05/31/20 07:12 59 L 23 H 90 L 05/31/20 06:00 62 29 H 119/76 89 L 05/31/20 04:00 96.1 F L 63 23 H 82/53 L 90 L 05/31/20 02:31 90 L 05/31/20 02:30 62 05/31/20 02:28 62 19 90 L 05/31/20 02:00 63 23 H 85/60 L 91 L Weight Weight 174 lb 8 oz General Appearance: awake alert Eye: PERRL, anicteric sclera ENT: no oropharyngeal lesions, moist mucosa Neck: supple, no JVD Heart: RRR, no murmur, no gallops Respiratory: no wheezes, rales, rhonchi Gastrointestinal: soft, non-tender, non-distended, normal bowel sounds Extremities: no cyanosis, no edema Neurological: cranial nerve grossly intact, no focal deficits Hosp A/P (1) Acute respiratory failure Code(s): J96.00 - ACUTE RESPIRATORY FAILURE, UNSP W HYPOXIA OR HYPERCAPNIA Status: Acute Qualifiers: Respiratory failure complication: hypoxia Qualified Code(s): J96.01 - Acute respiratory failure with hypoxia (2) COPD exacerbation Code(s): J44.1 - CHRONIC OBSTRUCTIVE PULMONARY DISEASE W (ACUTE) EXACERBATION Status: Acute (3) PNA (pneumonia) Code(s): J18.9 - PNEUMONIA, UNSPECIFIED ORGANISM Status: Acute Qualifiers: Pneumonia type: due to unspecified organism Laterality: bilateral (4) Hypothyroidism Code(s): E03.9 - HYPOTHYROIDISM, UNSPECIFIED Status: Chronic Qualifiers: Hypothyroidism type: acquired Qualified Code(s): E03.9 - Hypothyroidism, unspecified (5) Hepatitis B Status: Chronic Qualifiers: Viral hepatitis chronicity: chronic Hepatic coma status: without hepatic coma (6) Obesity (BMI 30.0-34.9) Code(s): E66.9 - OBESITY, UNSPECIFIED Status: Chronic (7) Mood disorder Code(s): F39 - UNSPECIFIED MOOD [AFFECTIVE] DISORDER Status: Chronic (8) Tobacco abuse Code(s): Z72.0 - TOBACCO USE Status: Chronic (9) Pneumonia due to COVID-19 virus Code(s): U07.1 - COVID-19; J12.89 - OTHER VIRAL PNEUMONIA Status: Chronic - Plan was positive for covid 19 on 04/25/20, has underlying fibrosis due to lung involvement and current bacterial infection and copd exacerbation has finished full course of cefepime and doxy this admission currently on high flow and tolerating well. no sign of cardiac ischemia needs to mobilize more to improve lung function and to come off high flow. encourage po intake, spiritual care as needed xanax to prn, is on abilify, depakote 500mg daily, prozac 60mg daily continue lipitor, fish oil, duonebs, steroids, synthroid and nicotine tts spoke to sister and POA [phone], she wants her to be dnar, confirmed with patient on 05/30/2020, she didn't pick her phone on 05/31/20. has 2 sons, one is not in contact with her, the other son Mr.Tommy Alas [phone] wants to be POA. is a resident of [facility] in [place] for atleast 5 years, has underlying psychiatric condition which put her in [place], likely bipolar disorder. prognosis guarded echo shows ef of 55%, mcv is 102.
[2020-05-31] MEDS: Ibuprofen 200 MG TAB PO PRN (12:58)
--- NOTE | 2020-05-31 16:32 | PDOC.PULCN ---
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 She has been tx for nosomial pneum and has finished her course with negative cultures, CXR continues to be abnormal. She denies shortness of breath but has complaints of left sided chest pain for 2 days that causes shortness of breath without nausea, diaphoresis. She never had fever but states she had chills at the [place], none here. She denies any prior hx of lung or heart disease, Pulmonology Consult: ROS - Review of Systems Constitutional: negative: fever, chills, sweats, weakness, malaise, other Cardiovascular: chest pain. negative: palpitations, orthopnea, paroxysmal nocturnal dyspnea, edema, light headedness, other Respiratory: pain on deep breathing. negative: no reported symptoms, bloody sputum, congestion, cough, chest soreness, chest tightness, exercise int olerance, non-productive cough, orthopnea, other, productive cough, short of breath, blodd streaked sputum, stridor, tachypnea, wheezing Pulmonology Consult: [facility] Source: patient Past Medical History: Psychiatric - Social History Smoking Status: Never smoker Alcohol Use: none Drug Use History: none Living Situation: [facility] Pulmonology Consult: Meds - Medications MAR Reviewed: Yes Medications: Current Medications Albuterol/Ipratropium (Ipratropium/Albuterol Sulfate 3 Ml Neb) 3 ml NEB [id number] [facility] Last Admin: 05/31/20 13:40 Dose: 3 ml Documented by: Albuterol/Ipratropium (Ipratropium/Albuterol Sulfate 3 Ml Neb) 3 ml NEB [id number] PRN PRN Reason: SOB &/or Wheezing Alprazolam (Alprazolam 1 Mg Tab) 1 mg PO TID PRN PRN Reason: anxiety Last Admin: 05/31/20 09:06 Dose: 1 mg Documented by: Aripiprazole (Aripiprazole 10 Mg Tab) 10 mg PO DAILY [facility] Last Admin: 05/31/20 08:59 Dose: 10 mg Documented by: Atorvastatin Calcium (Atorvastatin Calcium 20 Mg Tab) 20 mg PO HS [facility] Last Admin: 05/30/20 20:27 Dose: 20 mg Documented by: Cholecalciferol (Cholecalciferol 1,000 Units (25 Mcg) Tab) 5,000 units PO DAILY [facility] Last Admin: 05/31/20 09:00 Dose: 5,000 units Documented by: Divalproex Sodium (Divalproex Sodium 125 Mg Sprinkle Capsule) 500 mg PO DAILY PRN PRN Reason: Mood swings, kojo Enoxaparin Sodium (Enoxaparin Sodium 40 Mg/0.4 Ml Syringe) 40 mg SC 0900 [facility] Last Admin: 05/31/20 09:00 Dose: 40 mg Documented by: Fish Oil (Fish Oil 1,000 Mg Cap) 1,000 mg PO DAILY [facility] Last Admin: 05/31/20 08:59 Dose: 1,000 mg Documented by: Fluoxetine HCl (Fluoxetine Hcl 20 Mg Cap) 60 mg PO DAILY [facility] Last Admin: 05/31/20 08:59 Dose: 60 mg Documented by: Furosemide (Furosemide 20 Mg Tab) 20 mg PO DAILY [facility] Last Admin: 05/31/20 08:59 Dose: 20 mg Documented by: Cefepime HCl 2 gm/ Sodium (Chloride) 100 mls @ 200 mls/hr IVPB 1000,2200 [facility] Last Admin: 05/31/20 11:12 Dose: 100 mls Documented by: Doxycycline Hyclate 100 mg/ (Sodium Chloride) 100 mls @ 100 mls/hr IVPB 1100 ,2300 [facility] Last Admin: 05/31/20 11:13 Dose: 100 mls Documented by: Ibuprofen (Ibuprofen 200 Mg Tab) 400 mg PO TIDPRN PRN PRN Reason: Pain Last Admin: 05/31/20 12:58 Dose: 400 mg Documented by: Levothyroxine Sodium (Levothyroxine Sodium 75 Mcg Tab) 75 mcg PO 0600 [facility] Last Admin: 05/31/20 05:52 Dose: 75 mcg Documented by: Methylprednisolone Sodium Succinate (Methylprednisolone Sod Succ 40 Mg Vial) 40 mg IVP DAILY [facility] Last Admin: 05/31/20 08:59 Dose: 40 mg Documented by: Nicotine (Nicotine 21 Mg Patch) 21 mg TD Q24HR [facility] Last Admin: 05/31/20 11:35 Dose: Not Given Documented by: Sodium Chloride (Flush - Normal Saline 10 Ml Syringe) 10 ml IVF Q12HR [facility] Last Admin: 05/31/20 09:00 Dose: 10 ml Documented by: Sodium Chloride (Flush - Normal Saline 10 Ml Syringe) 10 ml IVF PRN PRN PRN Reason: Saline Flush - Allergies Allergies/Adverse Reactions: Allergies Allergy/AdvReac Type Severity Reaction Status Date / Time lithium [[place]] Allergy Intermediate Verified 04/12/20 23:13 Pulmonology Consult: PE - Physical Exam HEENT: PERRLA, oral pharynx no lesions Neck: no nodes Cardiovascular: RRR Respiratory: rales Focused Respiratory Location: decreased breath sounds: Right, Left, Upper, rales: Right, Left, Lower Gastrointestinal: soft Musculoskeletal: no edema Neurological: non-focal, moves all 4 limbs Skin: no rash Pulmonology Consult: Results - Labs Result Diagrams: 05/30/20 04:36 05/30/20 05:42 Pulmonology Consult: A/P - Time Time: 50% of the time was spent in coordination of care (as documented) at patient's floor/unit and/or counseling patient. Time with Patient: greater than 50 minutes - Plan Plan: Chronic hypoxemic respiratory failure with extensive bilateral diffuse emphysema and stranding atelectasis/fibrosis, subplelural fibrosis tolerating high flow oxygen states she is nonsmoker exposures unknown prior COVID residual effects could be present possible alpha one antitrypsin deficiency Chest pain possible PE possible pulm hypertension Recommendations work up alpha 1 antitrypsin deficiency, though at this point given the extent of the emphysema doubt will be of significant benefit, certainly NOT in the shor t term bronchodilators oral steroids equivalent 20mg prednisone with taper over one week recommended I note that PoA says she is DNAR Continue oxygen supplementation as needed Consider statin Agree with termination of antibiotics at this point in time Due to hypoxemia, not a candidate for bronchoscopy to detect AICHA or other pathogen causeing emphysematous changes Increase anticoagulation to full dose and follow up with CTA for PE protocol 06/01, venous doppler 06/01 Thank you for the consult. Please call Pulmonary during the week if you would like additional follow up
[2020-05-31] MEDS: Atorvastatin Calcium 20 MG TAB PO SCH (22:10)
[2020-06-01] MEDS: ALPRAZolam 1 MG TAB PO PRN ×3 (00:17→23:30)
[2020-06-01] MEDS: Aripiprazole 10 MG TAB PO SCH (12:30)
[2020-06-01] MEDS: Nicotine 21 MG PATCH TD SCH (12:30)
--- NOTE | 2020-06-01 14:13 | PRG ---
DATE OF SERVICE: 06/01/2020 SUBJECTIVE: This patient continues to deteriorate despite aggressive medical care. OBJECTIVE: VITAL SIGNS: She is currently on high-flow oxygen at 92% with SaO2 around 88%. Her pulse is 70, temperature 98.3, blood pressure 103/64. GENERAL: She does appear to be in respiratory distress. HEENT: Unremarkable. NECK: No adenopathy or JVD. LUNGS: Diminished breath sounds with crackles. CARDIAC: S1 and S2. Regular. ABDOMEN: Soft, nontender. EXTREMITIES: No edema. IMAGING DATA: A chest x-ray shows bilateral infiltrative changes predominantly in the bases with hyperinflation. A CT pulmonary angiogram from 05/21/2020 when she was first admitted, shows severe emphysematous changes in the mid lungs. She has fibrotic changes in the bases. LABORATORY DATA: No lab results were back today. ASSESSMENT: Severe bilateral emphysema which has probably been existent for years. This is on top of recent COVID-19 infection. She did have a CT pulmonary angiogram at admission, but anticoagulation has not been increased. The patient is voicing that she wants to "." She has made herself a DNAR. Based on what I am seeing currently, I recommend going up on her anticoagulation. She seems medically unstable to make a trip down to the CT scanner, so I think we just empirically treat as if she could have pulmonary emboli. I agree with the antibiotics and the nebulizer treatments. I agree with the corticosteroids. Her prognosis is extremely poor. Job ID: [id number]
--- NOTE | 2020-06-01 15:46 | PDOC.HOSPP ---
- Subjective Subjective: No acute events overnight. Patient continues to remain in respiratory distress. Patient continues to remain in critical condition on high flow nasal cannula. She reiterates today that she would like to go on to hospice care and wean off of the high flow nasal cannula and take morphine for comfort. Patient has been evaluated by palliative care and would like to discuss her case with the plug grower. - Objective Vital Signs & Weight: Vital Signs (12 hours) Temp Pulse Resp BP Pulse Ox 06/01/20 11:48 98.3 F 70 24 H 103/64 89 L 06/01/20 09:35 69 22 H 90 L 06/01/20 06:30 60 24 H 89 L Weight Weight 174 lb 8 oz I&O: 05/31/20 06/01/20 06/02/20 06:59 06:59 06:59 Intake Total 560 600 Output Total 450 Balance 560 150 Result Diagrams: 05/30/20 04:36 05/30/20 05:42 Hospitalist ROS - Review of Systems All other systems reviewed; all pertinent +/- noted in HPI/Subj - Medication Medications: Active Medications Generic Name Dose Route Start Last Admin Trade Name Freq PRN Reason Stop Dose Admin Albuterol/Ipratropium 3 ml 05/21/20 22:30 06/01/20 09:35 Ipratropium/Albuterol Sulfate 3 Ml Neb NEB 3 ml [id number] [facility] Administration Alprazolam 1 mg 05/30/20 14:58 06/01/20 00:17 Alprazolam 1 Mg Tab PO 1 mg TID PRN Administration anxiety Aripiprazole 10 mg 05/24/20 09:00 05/31/20 08:59 Aripiprazole 10 Mg Tab PO 10 mg DAILY [facility] Administration Atorvastatin Calcium 20 mg 05/23/20 21:00 05/31/20 22:10 Atorvastatin Calcium 20 Mg Tab PO 20 mg HS [facility] Administration Cholecalciferol 5,000 units 05/24/20 09:00 05/31/20 09:00 Cholecalciferol 1,000 Units (25 Mcg) Tab PO 5,000 units DAILY [facility] Administration Fish Oil 1,000 mg 05/24/20 09:00 05/31/20 08:59 Fish Oil 1,000 Mg Cap PO 1,000 mg DAILY [facility] Administration Fluoxetine HCl 60 mg 05/24/20 09:00 05/31/20 08:59 Fluoxetine Hcl 20 Mg Cap PO 60 mg DAILY [facility] Administration Furosemide 20 mg 05/24/20 09:00 05/31/20 08:59 Furosemide 20 Mg Tab PO 20 mg DAILY [facility] Administration Cefepime HCl 2 gm/ Sodium 100 mls @ 200 mls/hr 05/21/20 22:00 05/31/20 23:52 Chloride IVPB Not Given 1000,2200 [facility] Doxycycline Hyclate 100 mg/ 100 mls @ 100 mls/hr 05/21/20 23:00 05/31/20 22:09 Sodium Chloride IVPB 100 mls 1100,2300 [facility] Administration Ibuprofen 400 mg 05/30/20 17:10 05/31/20 12:58 Ibuprofen 200 Mg Tab PO 400 mg TIDPRN PRN Administration Pain Levothyroxine Sodium 75 mcg 05/24/20 06:00 05/31/20 05:52 Levothyroxine Sodium 75 Mcg Tab PO 75 mcg 0600 [facility] Administration Methylprednisolone Sodium Succinate 40 mg 05/22/20 09:00 05/31/20 08:59 Methylprednisolone Sod Succ 40 Mg Vial IVP 40 mg DAILY [facility] Administration Nicotine 21 mg 05/24/20 10:00 05/31/20 11:35 Nicotine 21 Mg Patch TD Not Given Q24HR [facility] Sodium Chloride 10 ml 05/22/20 09:00 05/31/20 22:10 Flush - Normal Saline 10 Ml Syringe IVF 10 ml Q12HR [facility] Administration Hospitalist Exam Vitals: Vital Signs (12 hours) Temp Pulse Resp BP Pulse Ox 06/01/20 11:48 98.3 F 70 24 H 103/64 89 L 06/01/20 09:35 69 22 H 90 L 06/01/20 06:30 60 24 H 89 L Weight Weight 174 lb 8 oz General Appearance: ill appearing Heart: no murmur, irregular (With tachycardia) Respiratory: CTAB, rales (To bilateral mid and lower lung bases) Gastrointestinal: soft, non-tender Extremities: no edema Neurological: no new deficit Hosp A/P (1) COPD exacerbation Code(s): J44.1 - CHRONIC OBSTRUCTIVE PULMONARY DISEASE W (ACUTE) EXACERBATION Status: Acute (2) PNA (pneumonia) Code(s): J18.9 - PNEUMONIA, UNSPECIFIED ORGANISM Status: Acute Qualifiers: Pneumonia type: due to unspecified organism Laterality: bilateral (3) Hepatitis B Status: Chronic Qualifiers: Viral hepatitis chronicity: chronic Hepatic coma status: without hepatic coma (4) Hypothyroidism Code(s): E03.9 - HYPOTHYROIDISM, UNSPECIFIED Status: Chronic Qualifiers: Hypothyroidism type: acquired Qualified Code(s): E03.9 - Hypothyroidism, unspecified (5) Obesity (BMI 30.0-34.9) Code(s): E66.9 - OBESITY, UNSPECIFIED Status: Chronic (6) BK (acute kidney injury) Code(s): N17.9 - ACUTE KIDNEY FAILURE, UNSPECIFIED Status: Acute (7) Acute respiratory failure Code(s): J96.00 - ACUTE RESPIRATORY FAILURE, UNSP W HYPOXIA OR HYPERCAPNIA Status: Acute Qualifiers: Respiratory failure complication: hypoxia Qualified Code(s): J96.01 - Acute respiratory failure with hypoxia - Plan Chronic hypoxemic respiratory failure with extensive bilateral diffuse emphysema and stranding atelectasis/fibrosis, subplelural fibrosis tolerating high flow oxygen states she is nonsmoker exposures unknown prior COVID residual effects could be present possible alpha one antitrypsin deficiency Chest pain possible PE possible pulm hypertension Continue bronchodilators Continue oral steroids equivalent 20mg prednisone with taper over one week recommended Patient is DNAR Continue oxygen supplementation as needed Consider statin We will increase to 60 mg Lovenox twice daily for treatment of possible pulmonary embolism as patient is not stable enough for CT PE protocol.
[2020-06-01] MEDS: Cholecalciferol 1,000 UNITS (25 MCG) TAB PO SCH (16:25)
[2020-06-01] MEDS: Fish Oil 1,000 MG CAP PO SCH (16:26)
[2020-06-01] MEDS: FLUoxetine HCl 20 MG CAP PO SCH (16:26)
[2020-06-01] MEDS: methylPREDNISolone Sod Succ 40 MG VIAL IVP SCH (16:27)
[2020-06-01] MEDS: Furosemide 20 MG TAB PO SCH (16:27)
[2020-06-01] MEDS: Enoxaparin Sodium 40 MG/0.4 ML SYRINGE SC SCH (16:31)
[2020-06-01 20:20] VITALS: BMI 31.8
[2020-06-01] MEDS ORDERED: Morphine 2 MG/ML VIAL SLOW IVP SCH (20:30)
[2020-06-01] MEDS: Levothyroxine Sodium 75 MCG TAB PO SCH (20:38)
[2020-06-01] MEDS: Cefepime 2 GM in Sodium Chloride 0.9% 100 ML IVPB SCH (23:09)
[2020-06-01] MEDS: Enoxaparin Sodium 60 MG/0.6 ML SYRINGE SC SCH (23:09)
[2020-06-01] MEDS: Morphine 2 MG/ML VIAL SLOW IVP PRN (23:55)
[2020-06-02] MEDS: Atorvastatin Calcium 20 MG TAB PO SCH ×2 (00:09→19:57)
[2020-06-02] MEDS: Morphine 2 MG/ML VIAL SLOW IVP PRN ×5 (06:01→21:36)
[2020-06-02] MEDS: Levothyroxine Sodium 75 MCG TAB PO SCH (06:31)
[2020-06-02 08:52] LABS: Hemoglobin 13.6 g/dL (12.0-16.0); Mean Corpuscular HGB CONC 32.8 g/dL (32.0-36.0); Mean Corpuscular Hemoglobin 34.2 pg (27.0-31.0); Mean Platelet Volume 6.7 fL (7.4-10.4); Platelet Count 353 thou/uL (130-400); RBC Distribution Width 13.5 % (11.5-14.5); Red Blood Cell (RBC) Count 3.99 mill/uL (4.20-5.40); White Blood Cell (WBC) Count 23.6 thou/uL (4.8-10.8)
[2020-06-02] MEDS: ALPRAZolam 1 MG TAB PO PRN ×2 (09:01→19:58)
[2020-06-02] MEDS: methylPREDNISolone Sod Succ 40 MG VIAL IVP SCH (09:02)
[2020-06-02] MEDS: Enoxaparin Sodium 60 MG/0.6 ML SYRINGE SC SCH ×2 (09:02→19:56)
[2020-06-02] MEDS: Aripiprazole 10 MG TAB PO SCH (09:04)
[2020-06-02 09:05] LABS: ALT (SGPT) 17 U/L (8-55); AST (SGOT) 24 U/L (5-34); Albumin 3.2 g/dL (3.4-4.8); Alkaline Phosphatase 83 U/L (40-110); Anion Gap 18 mmol/L (10-20); BUN (Urea Nitrogen) 19 mg/dL (9.8-20.1); Bilirubin, Total 0.6 mg/dL (0.2-1.2); Calc. Creatinine Clearance 84 mL/min (70-130); Calcium 9.6 mg/dL (7.8-10.44); Carbon Dioxide 23 mmol/L (23-31); Chloride 99 mmol/L (98-107); Globulin 4.3 g/dL (2.4-3.5); Glucose 97 mg/dL (80-115); Potassium 4.4 mmol/L (3.5-5.1); Protein, Total 7.5 g/dL (5.8-8.1); Sodium 136 mmol/L (136-145)
[2020-06-02] MEDS: Cefepime 2 GM in Sodium Chloride 0.9% 100 ML IVPB SCH ×2 (10:00→20:47)
[2020-06-02] MEDS: Nicotine 21 MG PATCH TD SCH (10:00)
[2020-06-02 10:05] LABS: Band 4 % (5-11); Lymphocytes 13 % (21-51); MDiff Complete? YES; Metamyelocyte 1 % (0-0); Monocytes 11 % (0-10); Neutrophil 68 % (42-75); RBC Morphology Normal; Reactive Lymphocytes 2 % (0-10)
[2020-06-02] MEDS: Cholecalciferol 1,000 UNITS (25 MCG) TAB PO SCH (10:07)
[2020-06-02] MEDS: FLUoxetine HCl 20 MG CAP PO SCH (10:07)
[2020-06-02] MEDS: Fish Oil 1,000 MG CAP PO SCH (10:07)
[2020-06-02] MEDS: Furosemide 20 MG TAB PO SCH (10:08)
--- NOTE | 2020-06-02 11:17 | PRG ---
DATE OF SERVICE: 06/02/2020 The patient remains in bad shape. She is on BiPAP. Her O2 saturation is about 80%. Heart rate is down to the 40s. She will wake up with stimulation, but quickly falls back asleep. She has poor air movement bilaterally and her heart rate is bradycardic. ASSESSMENT: Coronavirus disease 19 pneumonia with respiratory failure. PLAN: The patient is opting for hospice care. I have no more recommendations. Please recall if needed. Job ID: [id number]
--- NOTE | 2020-06-02 12:01 | PDOC.HOSPP ---
- Subjective Encounter Date: 06/02/20 Subjective: Patient acutely more short of breath and dyspneic overnight and this morning. She has been maxed out on the high flow nasal cannula and respiratory therapy added 15 L on a nonrebreather in addition to the high flow nasal cannula. Patient still able to communicate her wishes, and reiterates her desire to proceed to inpatient hospice. - Objective Vital Signs & Weight: Vital Signs (12 hours) Temp Pulse Resp BP Pulse Ox 06/02/20 10:23 95 06/02/20 10:22 94 30 H 80 L 06/02/20 08:00 79 L 06/02/20 06:41 87 32 H 74 L 06/02/20 06:00 98 34 H 78 L 06/02/20 04:00 96.1 F L 81 14 90/70 84 L 06/02/20 02:00 84 16 100/68 06/02/20 00:00 97.5 F L 78 17 86 L Weight Admit Weight 174 lb Weight 174 lb 8 oz I&O: 06/01/20 06/02/20 06/03/20 06:59 06:59 06:59 Intake Total 600 580 Output Total 450 500 Balance 150 80 Result Diagrams: 06/02/20 08:41 06/02/20 08:41 Hospitalist ROS - Review of Systems All other systems reviewed; all pertinent +/- noted in HPI/Subj - Medication Medications: Active Medications Generic Name Dose Route Start Last Admin Trade Name Freq PRN Reason Stop Dose Admin Albuterol/Ipratropium 3 ml 05/21/20 22:30 06/02/20 10:22 Ipratropium/Albuterol Sulfate 3 Ml Neb NEB 3 ml [id number] PALMA Administration Alprazolam 1 mg 06/01/20 16:48 06/02/20 09:01 Alprazolam 1 Mg Tab PO 1 mg Q6H PRN Administration Anxiety/Agitation Aripiprazole 10 mg 05/24/20 09:00 06/02/20 09:04 Aripiprazole 10 Mg Tab PO Not Given DAILY PALMA Atorvastatin Calcium 20 mg 05/23/20 21:00 06/02/20 00:09 Atorvastatin Calcium 20 Mg Tab PO Not Given HS PALMA Cholecalciferol 5,000 units 05/24/20 09:00 06/02/20 10:07 Cholecalciferol 1,000 Units (25 Mcg) Tab PO Not Given DAILY [facility] Enoxaparin Sodium 60 mg 06/01/20 21:00 06/02/20 09:02 Enoxaparin Sodium 60 Mg/0.6 Ml Syringe SC 60 mg BID PALMA Administration Fish Oil 1,000 mg 05/24/20 09:00 06/02/20 10:07 Fish Oil 1,000 Mg Cap PO Not Given DAILY [facility] Fluoxetine HCl 60 mg 05/24/20 09:00 06/02/20 10:07 Fluoxetine Hcl 20 Mg Cap PO Not Given DAILY [facility] Furosemide 20 mg 05/24/20 09:00 06/02/20 10:08 Furosemide 20 Mg Tab PO Not Given DAILY [facility] Cefepime HCl 2 gm/ Sodium 100 mls @ 200 mls/hr 05/21/20 22:00 05/31/20 23:52 Chloride IVPB Not Given 1000,2200 [facility] Doxycycline Hyclate 100 mg/ 100 mls @ 100 mls/hr 05/21/20 23:00 05/31/20 22:09 Sodium Chloride IVPB 100 mls 1100,2300 [facility] Administration Cefepime HCl 2 gm/ Sodium 100 mls @ 200 mls/hr 06/01/20 22:00 06/01/20 23:09 Chloride IVPB Not Given 1000,2200 [facility] Doxycycline Hyclate 100 mg/ 100 mls @ 100 mls/hr 06/01/20 23:00 06/01/20 23:10 Sodium Chloride IVPB Not Given 1100,2300 [facility] Ibuprofen 400 mg 05/30/20 17:10 05/31/20 12:58 Ibuprofen 200 Mg Tab PO 400 mg TIDPRN PRN Administration Pain Levothyroxine Sodium 75 mcg 05/24/20 06:00 06/02/20 06:31 Levothyroxine Sodium 75 Mcg Tab PO Not Given 0600 [facility] Methylprednisolone Sodium Succinate 40 mg 05/22/20 09:00 06/02/20 09:02 Methylprednisolone Sod Succ 40 Mg Vial IVP 40 mg DAILY PALMA Administration Morphine Sulfate 2 mg 06/01/20 23:48 06/02/20 11:46 Morphine 2 Mg/Ml Vial SLOW IVP 2 mg Q2H PRN Administration SOB or Anxiety Nicotine 21 mg 05/24/20 10:00 06/01/20 12:30 Nicotine 21 Mg Patch TD 21 mg Q24HR PALMA Administration Sodium Chloride 10 ml 05/22/20 09:00 06/02/20 10:08 Flush - Normal Saline 10 Ml Syringe IVF 10 ml Q12HR PALMA Administration Hospitalist Exam Vitals: Vital Signs (12 hours) Temp Pulse Resp BP Pulse Ox 06/02/20 10:23 95 06/02/20 10:22 94 30 H 80 L 06/02/20 08:00 79 L 06/02/20 06:41 87 32 H 74 L 06/02/20 06:00 98 34 H 78 L 06/02/20 04:00 96.1 F L 81 14 90/70 84 L 06/02/20 02:00 84 16 100/68 06/02/20 00:00 97.5 F L 78 17 86 L Weight Admit Weight 174 lb Weight 174 lb 8 oz General Appearance: ill appearing Eye: PERRL ENT: no oropharyngeal lesions Neck: no JVD Heart: no murmur, no rubs, irregular (With tachycardia) Respiratory: no wheezes, rales (Bilateral mid and lower lung wilkinson), rhonchi, tachypneic Gastrointestinal: non-tender, non-distended Extremities: no edema Skin: no rashes Neurological: no new deficit Musculoskeletal: generalized weakness Psychiatric: lethargic Hosp A/P (1) COPD exacerbation Code(s): J44.1 - CHRONIC OBSTRUCTIVE PULMONARY DISEASE W (ACUTE) EXACERBATION Status: Acute (2) PNA (pneumonia) Code(s): J18.9 - PNEUMONIA, UNSPECIFIED ORGANISM Status: Acute Qualifiers: Pneumonia type: due to unspecified organism Laterality: bilateral (3) Hepatitis B Status: Chronic Qualifiers: Viral hepatitis chronicity: chronic Hepatic coma status: without hepatic coma (4) Hypothyroidism Code(s): E03.9 - HYPOTHYROIDISM, UNSPECIFIED Status: Chronic Qualifiers: Hypothyroidism type: acquired Qualified Code(s): E03.9 - Hypothyroidism, unspecified (5) Obesity (BMI 30.0-34.9) Code(s): E66.9 - OBESITY, UNSPECIFIED Status: Chronic (6) BK (acute kidney injury) Code(s): N17.9 - ACUTE KIDNEY FAILURE, UNSPECIFIED Status: Acute (7) Acute respiratory failure Code(s): J96.00 - ACUTE RESPIRATORY FAILURE, UNSP W HYPOXIA OR HYPERCAPNIA Sta tus: Acute Qualifiers: Respiratory failure complication: hypoxia Qualified Code(s): J96.01 - Acute respiratory failure with hypoxia - Plan Chronic hypoxemic respiratory failure with extensive bilateral diffuse emphysema and stranding atelectasis/fibrosis, subplelural fibrosis Patient currently maxed out on high flow nasal cannula with air Vo Patient currently saturating in the high 70s/low 80s on high flow nasal cannula therefore we will trial BiPAP, but if patient does not tolerate this, then we will transition back to high flow nasal cannula. Continue steroids states she is nonsmoker exposures unknown prior COVID residual effects could be present possible alpha one antitrypsin deficiency Chest pain possible PE possible pulm hypertension Continue bronchodilators Continue oxygen supplementation as needed Continue Lovenox 60 mg twice daily for treatment of possible pulmonary embolism as patient is not stable enough for CT PE protocol. Palliative care and hospice evaluation consults placed. Patient not stable enough for outpatient hospice therefore would like to begin inpatient hospice Morphine and Xanax to provide comfort for the patient DVT prophylaxis: Lovenox 60 mg twice daily GI prophylaxis: Pepcid CODE STATUS: DNR Disposition: Pending inpatient hospice evaluation.
[2020-06-02 17:32] LABS: SARS-CoV-2 NAA Rapid Test Not Detected (NotDetected)
[2020-06-02 19:24] VITALS: TEMP 99.8
[2020-06-02] MEDS ORDERED: Morphine 4 MG/ML VIAL SLOW IVP SCH (23:00)
[2020-06-03] MEDS: Morphine 2 MG/ML VIAL SLOW IVP PRN (00:06)
[2020-06-03 00:56] VITALS: BP 95/66
--- NOTE | 2020-06-03 15:24 | EKG ---
Test Reason : STAT Blood Pressure : / mmHG Vent. Rate : 065 BPM Atrial Rate : 065 BPM P-R Int : 134 ms QRS Dur : 082 ms QT Int : 430 ms P-R-T Axes : 069 060 057 degrees QTc Int : 447 ms Normal sinus rhythm Abnormal ECG When compared with ECG of 21-MAY-2020 18:45, (Unconfirmed) Sinus rhythm has replaced Atrial fibrillation Vent. rate has decreased BY 62 BPM Left bundle branch block is no longer Present Confirmed by TERESA MCKEON ([id number]) on 06/03/2020 3:23:57 PM Referred By: ZULEIKA Confirmed By:TERESA MCKEON
--- NOTE | 2020-06-06 15:34 | EKG ---
Test Reason : Blood Pressure : / mmHG Vent. Rate : 078 BPM Atrial Rate : 078 BPM P-R Int : 134 ms QRS Dur : 072 ms QT Int : 392 ms P-R-T Axes : 072 -11 -58 degrees QTc Int : 446 ms Normal sinus rhythm Abnormal ECG Confirmed by ALISA WHEELER ([id number]), telegraph editor LETICIA DAVID ([id number]) on 06/06/2020 3:34:09 PM Referred By: Confirmed By:ALISA WHEELER
== END 2020-06-03 00:31 | disposition expired | DRG 871 ==
LOC: ERS 17:39 → ERHOLD 19:54 → 2NO 05-22 13:02 → T4-A 05-26 15:32 → 2SE 05-29 08:48
PROVIDERS: ADMIT Student in an Organized Health Care Education/Training Program; ATTEND Emergency Medicine
PROC: 5A09457 Assistance with Respiratory Ventilation, 24-96 Consecutive Hours, Continuous Positive Airway Pressure (ICD-10-PCS; principal; 2020-06-02)
DX: A41.9 Sepsis, unspecified organism (principal); J96.01 Acute respiratory failure with hypoxia; G93.41 Metabolic encephalopathy; J18.9 Pneumonia, unspecified organism; I26.99 Other pulmonary embolism without acute cor pulmonale; B18.1 Chronic viral hepatitis B without delta-agent; Z66 Do not resuscitate; J43.9 Emphysema, unspecified; E03.9 Hypothyroidism, unspecified; E66.9 Obesity, unspecified; F39 Unspecified mood [affective] disorder; E78.5 Hyperlipidemia, unspecified; Z20.822 Contact with and (suspected) exposure to COVID-19; J84.10 Pulmonary fibrosis, unspecified; Z79.82 Long term (current) use of aspirin; Z90.710 Acquired absence of both cervix and uterus; Z90.49 Acquired absence of other specified parts of digestive tract; Z86.16 Personal history of COVID-19; Z68.31 Body mass index [BMI] 31.0-31.9, adult
CPT/HCPCS: 0240U; 36415; 51701; 70450; 71045; 71275; 80048; 80053; 81003; 83605; 83690; 83735; 83880; 84145; 84484; 85025; 85379; 85610; 85730; 87040; 87086; 93005; 93010; 93306; 94640; 94660; 96365; 96366; 96367; J0456; J0692; J0696; J1650; J1940; J2270; J2920; J3473; J3490; J7620; Q9967; U0002